=== PATIENT | female | born 1980 | race Caucasian/White ===

== ENCOUNTER → 2016-09-25 | Outpatient (CLI) | payer BC ==
--- NOTE | 2016-09-25 13:34 | XR ---
EXAMINATION TYPE: XR chest 2V DATE OF EXAM: 09/25/2016 1:29 PM COMPARISON: NONE HISTORY: Cough TECHNIQUE: Frontal and lateral views of the chest are obtained. FINDINGS: There is no focal air space opacity, pleural effusion, or pneumothorax seen. The cardiac silhouette size is within normal limits. The osseous structures are intact. IMPRESSION: No acute cardiopulmonary process.
== END | disposition home or self-care (01) ==
LOC: RADXRMAIN 13:12
PROVIDERS: ATTEND Family Medicine
DX: R05 Cough (principal)
CPT/HCPCS: 71020

== ENCOUNTER → 2018-07-04 | Outpatient (CLI) | payer BC ==
--- NOTE | 2018-07-04 09:39 | CT ---
EXAMINATION TYPE: CT chest w con DATE OF EXAM: 07/04/2018 COMPARISON: CT abdomen pelvis July 19, [address] urogram June 26, 2016 HISTORY: Lung nodule found on CT abd pelvis a couple years ago CT DLP: 258.7 mGycm. Automated Exposure Control for Dose Reduction was Utilized. TECHNIQUE: CT scan of the thorax is performed following with IV Contrast, patient injected with 100 mL of Isovue 300. FINDINGS: LUNGS: There is stable 5 x 3 mm subpleural nodule or nodular density left lower lobe axial image 34. Dependent atelectasis is seen in both lower lobes. No suspicious new nodules or masses are present. N o pleural effusion or pneumothorax is seen bilaterally. MEDIASTINUM: There are no greater than 1 cm hilar or mediastinal lymph nodes. Slightly prominent bu t subcentimeter prevascular lymph nodes and right pericarinal lymph node axial image 21 are noted. No cardiomegaly or pericardial effusion is seen. OTHER: No additional significant abnormality is seen. IMPRESSION: Stable 5 x 3 mm peripheral left lower lobe nodule, documentation of 2 years stability is consistent with benign etiology. No new nodules or adenopathy identified.
== END ==
LOC: RADCTMAIN 09:11
PROVIDERS: ATTEND Family Medicine
DX: R91.1 Solitary pulmonary nodule (principal)
CPT/HCPCS: 71260; Q9967

== ENCOUNTER → 2018-10-09 | Outpatient (CLI) | payer BC ==
--- NOTE | 2018-10-15 09:18 | P.ARTDOP ---
Arterial Doppler LOWER EXTREMITY ARTERIAL DOPPLER: DATE OF SERVICE: 10/09/2018 Reason for study: Numbness and tingling both lower legs. Doppler waveforms: Multiphasic bilaterally throughout. Pulse volume recording: []. Pressure gradients: None. Ankle-brachial indices: Greater than 1 bilaterally. Toe pressures: 95 on the right, 96 on the left Impression: Normal study.
== END ==
LOC: RADUSWWP 10:01
PROVIDERS: ATTEND Family Medicine
DX: I70.213 Atherosclerosis of native arteries of extremities with intermittent claudication, bilateral legs (principal)
CPT/HCPCS: 93922

== ENCOUNTER 2019-08-19 20:11 | Emergency (ER) | payer BC ==
[2019-08-19 20:32] VITALS: BP 149/63; PULSE 93; RESP 20; TEMP 97.7
--- NOTE | 2019-08-19 20:40 | ED ---
Upper Extremity HPI - General Chief Complaint: Extremity Injury, Upper Stated Complaint: rt wrist pain Time Seen by Provider: 08/19/19 20:32 Source: patient, family Mode of arrival: ambulatory Limitations: no limitations - History of Present Illness Initial Comments: Patient is a 39-year-old female presenting to emergency Department with complaints of right wrist pain for 1 week. Patient denies any trauma or injuries to her right wrist. She denies previous surgeries. Patient states she went to [facility] a few days ago for same complaint was given a brace. Patient continues to have pain. She says that she leaves for a cruise in a few days and is worried about this pain. She is right-hand dominant. She denies fever, chills. She has no other complaints at this time. Upon arrival to ER, her vital signs are stable. - Related Data Home Medications Medication Instructions Recorded Confirmed HYDROcodone/APAP 7.5-325MG [[place] 1 tab PO Q4H PRN 07/19/16 07/19/16 7.5-325] Lisdexamfetamine Dimesylate 70 mg PO QAM 07/19/16 07/19/16 [Vyvanse] Previous Rx's Medication Instructions Recorded Ciprofloxacin HCl [Cipro] 500 mg PO Q12HR #14 tablet 07/19/16 Allergies Allergy/AdvReac Type Severity Reaction Status Date / Time No Known Allergies Allergy Verified 08/19/19 20:31 Review of Systems ROS Statement: Those systems with pertinent positive or pertinent negative responses have been documented in the HPI. ROS Other: All systems not noted in ROS Statement are negative. Past Medical History Past Medical History: No Reported History History of Any Multi-Drug Resistant Organisms: None Reported Past Surgical History: Hysterectomy, Orthopedic Surgery Additional Past Surgical History / Comment(s): bladder surgery Past Psychological History: No Psychological Hx Reported Smoking Status: Current every day smoker Past Alcohol Use History: Occasional Past Drug Use History: None Reported General Exam - General Exam Comments Initial Comments: GENERAL: Well-appearing, well-nourished and in no acute distress. HEAD: Atraumatic, normocephalic. EYES: Pupils equal round and reactive to light, extraocular movements intact, sclera anicteric, conjunctiva are normal. ENT: Moist mucous membranes. NECK: Normal range of motion, supple without lymphadenopathy or JVD. LUNGS: Breath sounds clear to auscultation bilaterally and equal. No wheezes rales or rhonchi. HEART: Regular rate and rhythm without murmurs, rubs or gallops. ABDOMEN: Soft, nontender, normoactive bowel sounds. EXTREMITIES: The patient has pain with palpation on the lateral aspect of the right wrist, base of thumb area. She has no swelling, no overlying erythema or bruising. She does have full wrist range of motion although painful at the end range. She is neurovascular intact. NEUROLOGICAL: Normal speech, normal gait. PSYCH: Normal mood, normal affect. SKIN: Warm, Dry, normal turgor, no rashes or lesions noted. Limitations: no limitations Course Vital Signs 08/19/19 20:29 Temperature 97.7 F Pulse Rate 93 Respiratory 20 Rate Blood Pressure 149/63 O2 Sat by Pulse 97 Oximetry Medical Decision Making - Medical Decision Making Patient is a 39-year-old female presenting of right wrist pain times one week. No injuries or trauma. X-rays reveal no acute fractures dislocations. I discussed these findings with the patient. Patient will continue to wear brace she got from [facility] 2 days ago. She can use ibuprofen and ice for pain relief. If symptoms persist, patient will follow up with her PCP. She is in agreement with this plan of care. Patient is stable for discharge. Disposition Clinical Impression: Right wrist pain Disposition: HOME SELF-CARE Condition: Stable Instructions (If sedation given, give patient instructions): Wrist Injury (ED) Additional Instructions: Please return to the Emergency Department if symptoms worsen or any other concerns. Follow up with PCP or orthopedic if symptoms persist after 1- 2 weeks. Use ibuprofen and ice for pain relief. Is patient prescribed a controlled substance at d/c from ED?: No Referrals: Sudarshan Melton MD [Primary Care Provider] - 1-2 days
--- NOTE | 2019-08-19 20:56 | XR ---
EXAMINATION TYPE: XR wrist complete RT DATE OF EXAM: 08/19/2019 COMPARISON: NONE HISTORY: Pain and swelling TECHNIQUE: 3 views FINDINGS: Carpal bones are intact. There is small degenerative cyst in the distal scaphoid bone. Ther e are no erosions. There is no subluxation. Metacarpals are intact. Radiocarpal joint space is normal . IMPRESSION: No acute abnormality of the right wrist. No sign of inflammatory arthritis.
== END 2019-08-19 21:10 | disposition home or self-care (01) ==
LOC: EC 20:11
DX: M25.531 Pain in right wrist (principal); F17.200 Nicotine dependence, unspecified, uncomplicated
CPT/HCPCS: 99283

== ENCOUNTER 2023-09-12 22:37 | Emergency (ER) | payer BC ==
[2023-09-13] MEDS: ACETAMINOPHEN TAB 500 MG TAB PO STA (00:25)
[2023-09-13] MEDS: IBUPROFEN 800 MG TAB PO STA (00:26)
--- NOTE | 2023-09-13 01:07 | ED ---
URI HPI - General Chief Complaint: Upper Respiratory Infection Stated Complaint: fever body aches Time Seen by Provider: 09/13/23 00:02 Source: patient Mode of arrival: ambulatory Limitations: no limitations - History of Present Illness Initial Comments: 43-year-old female presenting with chief complaint of headache. Patient states that she woke up today experiencing fever, headache, cough, and congestion. States that the cough makes the pressure in her head worse and also causes some back pain. She has been alternating Motrin and Tylenol. No abdominal pain nausea vomiting or diarrhea. Patient only has chest pain with coughing, otherwise no chest pain. No palpitations. No vision or hearing changes. No numbness or tingling. - Related Data Home Medications Medication Instructions Recorded Confirmed HYDROcodone/APAP 7.5-325MG [[place] 1 tab PO Q4H PRN 07/19/16 07/19/16 7.5-325] Lisdexamfetamine Dimesylate 70 mg PO QAM 07/19/16 07/19/16 [Vyvanse] Previous Rx's Medication Instructions Recorded Ciprofloxacin HCl [Cipro] 500 mg PO Q12HR #14 tablet 07/19/16 Oseltamivir [Tamiflu] 75 mg PO Q12HR 5 Days #9 cap 09/13/23 Allergies Allergy/AdvReac Type Severity Reaction Status Date / Time No Known Allergies Allergy Verified 09/12/23 23:00 Review of Systems ROS Statement: Those systems with pertinent positive or pertinent negative responses have been documented in the HPI. ROS Other: All systems not noted in ROS Statement are negative. Past Medical History Past Medical History: No Reported History History of Any Multi-Drug Resistant Organisms: None Reported Past Surgical History: Hysterectomy, Orthopedic Surgery Additional Past Surgical History / Comment(s): bladder surgery Past Psychological History: No Psychological Hx Reported Smoking Status: Current every day smoker Past Alcohol Use History: Occasional Past Drug Use History: None Reported General Exam Limitations: no limitations General appearance: alert, in no apparent distress Head exam: Present: atraumatic, normocephalic Eye exam: Present: normal appearance Neck exam: Present: normal inspection Respiratory exam: Present: normal lung sounds bilaterally. Absent: respiratory distress, wheezes, rales, rhonchi, stridor Cardiovascular Exam: Present: regular rate, normal rhythm, normal heart sounds. Absent: systolic murmur, diastolic murmur, rubs, gallop, clicks Neurological exam: Present: alert, oriented X3 Psychiatric exam: Present: normal affect, normal mood Skin exam: Present: warm, dry Course Vital Signs 09/12/23 09/13/23 22:59 01:41 Temperature 99.4 F 98.8 F Pulse Rate 107 H 95 Respiratory 20 16 Rate Blood Pressure 122/78 106/69 O2 Sat by Pulse 97 97 Oximetry Medical Decision Making - Medical Decision Making Was pt. sent in by a medical professional or institution ([facility], [facility], urgent care, hospital, or [facility]...) When possible be specific @ -No Did you speak to anyone other than the patient for history (EMS, parent, family, police, friend...)? What history was obtained from this source @ -No Did you review nursing and triage notes (agree or disagree)? Why? @ -I reviewed and agree with nursing and triage notes Were old charts reviewed (outside hosp., previous admission, EMS record, old EKG, old radiological studies, urgent care reports/EKG's, [facility] records)? Report findings @ -No old charts were reviewed Differential Diagnosis (chest pain, altered mental status, abdominal pain women, abdominal pain men, vaginal bleeding, weakness, fever, dyspnea, syncope, headache, dizziness, GI bleed, back pain, seizure, CVA, palpatations, mental health, musculoskeletal)? @ -Differential includes, RSV, COVID, migraine, tension headache, cluster, intracranial hemorrhage, influenza, this is not all inclusive. EKG interpreted by me (3pts min.). @ -As above X-rays interpreted by me (1pt min.). @ -None done CT interpreted by me (1pt min.). @ -None done U/S interpreted by me (1pt. min.). @ -None done What testing was considered but not performed or refused? (CT, X-rays, U/S, labs)? Why? @ -None What meds were considered but not given or refused? Why? @ -None Did you discuss the management of the patient with other professionals (professionals i.e. [facility], MASTER WELDER, lab, RT, psych nurse, social worker health services, fitness manager, teacher, risk officer, piano case and bench assembler)? Give summary @ -No Was smoking cessation discussed for >3mins.? @ -No Was critical care preformed (if so, how long)? @ -No Were there social determinants of health that impacted care today? How? (Homelessness, low income, unemployed, alcoholism, drug addiction, transportation, low edu. Level, literacy, decrease access to med. care, senior care, rehab)? @ -No Was there de-escalation of care discussed even if they declined (Discuss DNR or withdrawal of care, Hospice)? DNR status @ -No What co-morbidities impacted this encounter? (DM, HTN, Smoking, COPD, CAD, Cancer, CVA, ARF, Chemo, Hep., AIDS, mental health diagnosis, sleep apnea, morbid obesity)? @ -None Was patient admitted / discharged? Hospital course, mention meds given and route, prescriptions, significant lab abnormalities, going to OR and other pertinent info. @ -43-year-old female presenting with chief complaint of headache, cough, congestion, body aches. History and physical exam are conducted. Patient is positive for influenza A. Provided Motrin and Tylenol for low-grade fever headache and bodyaches. Educated on today's findings and supportive management at home. Started on Tamiflu. Follow-up with PCP. Report back to ER with any new or worsening symptoms. Discussed return parameters and answered all questions. Patient conveyed verbal understanding and agreed to the plan. I discussed this case in detail with my attending Dr. Torres Undiagnosed new problem with uncertain prognosis? @ -No Drug Therapy requiring intensive monitoring for toxicity (Heparin, Nitro, Insulin, Cardizem)? @ -No Were any procedures done? @ -No Diagnosis/symptom? @ -Influenza A Acute, or Chronic, or Acute on Chronic? @ -Acute Uncomplicated (without systemic symptoms) or Complicated (systemic symptoms)? @ -complicated Side effects of treatment? @ -No Exacerbation, Progression, or Severe Exacerbation? @ -No Poses a threat to life or bodily function? How? (Chest pain, [place], [place], pneumonia, PE, COPD, DKA, ARF, appy, cholecystitis, CVA, Diverticulitis, Homicidal, Suicidal, threat to staff... and all critical care pts) @ -Unlikely - Lab Data Lab Results 09/12/23 Range/Units 23:02 Influenza Type A (PCR) Detected A (Not Detectd) Influenza Type B (PCR) Not Detected (Not Detectd) RSV (PCR) Not Detected (Not Detectd) SARS-CoV-2 (PCR) Not Detected (Not Detectd) Disposition Clinical Impression: Influenza Disposition: HOME SELF-CARE Condition: Good Instructions (If sedation given, give patient instructions): Influenza (ED) Additional Instructions: Follow-up with PCP. Report back to ER with any new or worsening symptoms. Prescriptions: Oseltamivir [Tamiflu] 75 mg PO Q12HR 5 Days #9 cap Is patient prescribed a controlled substance at d/c from ED?: No Referrals: Sudarshan Melton MD [Primary Care Provider] - 1-2 days Time of Disposition: 01:32
[2023-09-13] MEDS: OSELTAMIVIR 75 MG CAP PO STA (01:39)
[2023-09-13 02:15] VITALS: BP 106/69; PULSE 95; RESP 16; TEMP 98.8
== END 2023-09-13 01:44 | disposition home or self-care (01) ==
LOC: EC 22:37
DX: J10.1 Influenza due to other identified influenza virus with other respiratory manifestations (principal); F17.200 Nicotine dependence, unspecified, uncomplicated; Z20.822 Contact with and (suspected) exposure to COVID-19
CPT/HCPCS: 87636; 99284

== ENCOUNTER 2024-04-27 11:07 | Inpatient (IN) | payer BC ==
[2024-04-27] MEDS: MORPHINE SULFATE 4 MG/ML SYRINGE IV STA (12:25)
[2024-04-27] MEDS: KETOROLAC 15 MG/ML 1 ML VIAL IVP STA (12:27)
[2024-04-27] MEDS: DEXAMETHASONE SOD PHOSPHATE 10 MG/ML 1 ML VIAL IV STA (12:28)
--- NOTE | 2024-04-27 12:31 | ED ---
General Adult HPI - General Chief complaint: Back Pain/Injury Stated complaint: Back Pain Time Seen by Provider: 04/27/24 12:04 Source: patient Mode of arrival: EMS Limitations: no limitations - History of Present Illness Initial comments: Dictation was produced using [employer] dictation software. please excuse any grammatical, word or spelling errors. Chief Complaint: 43-year-old female presents emergency department for back pain History of Present Illness: Patient is a 43-year-old female she presents to the emergency department with acute on chronic back pain. Patient states that she has not been able to make it to her chiropractic appointment in the last couple weeks. Feels like her back pain has been worsening. Patient states that she felt a little sore last night did some stretches before bed. She woke up in the middle the night with severe back pain. She has been having radiating symptoms to her left lower extremity. States that she feels some [id number] type sensation. Denies any fever. Denies any nausea vomiting. No history of IV drug abuse or immunosuppression or transplant. Denies any loss of bowel or bladder control. The ROS documented in this emergency department record has been reviewed and confirmed by me. Those systems with pertinent positive or negative responses have been documented in the HPI. All other systems are other negative and/or noncontributory. - Related Data Home Medications Medication Instructions Recorded Confirmed HYDROcodone/APAP 7.5-325MG [[place] 1 tab PO TID 07/19/16 04/27/24 7.5-325] Dextroamphetamine/Amphetamine 20 mg PO BID@0800,1500 04/27/24 04/27/24 [Adderall] Allergies Allergy/AdvReac Type Severity Reaction Status Date / Time No Known Allergies Allergy Verified 04/27/24 16:45 Review of Systems ROS Statement: Those systems with pertinent positive or pertinent negative responses have been documented in the HPI. ROS Other: All systems not noted in ROS Statement are negative. Past Medical History Past Medical History: No Reported History Additional Past Medical History / Comment(s): back pain History of Any Multi-Drug Resistant Organisms: None Reported Past Surgical History: Hysterectomy, Orthopedic Surgery Additional Past Surgical History / Comment(s): bladder surgery Past Psychological History: No Psychological Hx Reported Smoking Status: Current every day smoker Past Alcohol Use History: Occasional Past Drug Use History: None Reported General Exam - General Exam Comments Initial Comments: PHYSICAL EXAM: General Impression: Alert and oriented x3, not in acute distress HEENT: Normocephalic atraumatic, extra-ocular movements intact, pupils equal and reactive to light bilaterally, mucous membranes moist. Cardiovascular: Heart regular rate and rhythm Chest: Able to complete full sentences, no retractions, no tachypnea Abdomen: abdomen soft, non-tender, non-distended, no organomegaly Musculoskeletal: Pulses present and equal in all extremities, no peripheral edema Motor: no focal deficits noted Neurological: CN II-XII grossly intact, no focal motor or sensory deficits no devaughn, no lower extremity hyperreflexia Skin: Intact with no visualized rashes Psych: Normal affect and mood Limitations: no limitations Course Vital Signs 04/27/24 04/27/24 04/27/24 11:11 12:22 13:35 Temperature 97.7 F Pulse Rate 105 H 112 H 106 H Respiratory 16 18 18 Rate Blood Pressure 149/92 126/81 117/73 O2 Sat by Pulse 88 L 96 98 Oximetry 04/27/24 04/27/24 04/27/24 14:31 16:19 17:22 Temperature Pulse Rate 90 86 84 Respiratory 18 18 18 Rate Blood Pressure 118/75 142/88 126/59 O2 Sat by Pulse 97 97 97 Oximetry Medical Decision Making - Medical Decision Making Was pt. sent in by a medical professional or institution ([facility], STERILE TECH, urgent care, hospital, or snf...) When possible be specific @ -No Did you speak to anyone other than the patient for history (EMS, parent, family, police, friend...)? What history was obtained from this source @ -No Did you review nursing and triage notes (agree or disagree)? Why? @ -I reviewed and agree with nursing and triage notes Were old charts reviewed (outside hosp., previous admission, EMS record, old EKG, old radiological studies, urgent care reports/EKG's, snf records)? Report findings @ -No old charts were reviewed Differential Diagnosis (chest pain, altered mental status, abdominal pain women, abdominal pain men, vaginal bleeding, musculoskeletal, weakness, fever, dyspnea, syncope, headache, dizziness, GI bleed, back pain, seizure, CVA, palpatations, mental health)? @ -Differential Back Pain: Strain, zoster, cauda equina syndrome, epidural abscess, vertebral osteomyelitis, discitis, fracture, subluxation, disc herniation, DJD, spinal stenosis, dissection, AAA, pancreatitis, peptic ulcer disease, pyelonephritis, kidney stone, this is not meant to be an all-inclusive list. EKG interpreted by me (3pts min.). @ -None done X-rays interpreted by me (1pt min.). @ -None done CT interpreted by me (1pt min.). @ -CT lumbar spine shows osteoarthritis at the facets U/S interpreted by me (1pt. min.). @ -None done What testing was considered but not performed or refused? (CT, X-rays, U/S, labs)? Why? @ -None What meds were considered but not given or refused? Why? @ -None Was smoking cessation discussed for >3mins.? @ -No Were there social determinants of health that impacted care today? How? (Homelessness, low income, unemployed, alcoholism, drug addiction, transportation, low edu. Level, literacy, decrease access to med. care, fdc, rehab)? @ -No Was there de-escalation of care discussed even if they declined (Discuss DNR or withdrawal of care, Hospice)? DNR status @ -No What co-morbidities impacted this encounter? (DM, HTN, Smoking, COPD, CAD, Cancer, CVA, ARF, Chemo, Hep., AIDS, mental health diagnosis, sleep apnea, morbid obesity)? @ -None Was patient admitted / discharged? Hospital course, mention meds given and route, prescriptions, significant lab abnormalities, going to OR and other pertinent info. @ -43-year-old female with acute on chronic back pain. Patient states that her symptoms are fairly significant. Patient in distress at the bedside. Vital signs stable. Laboratory evaluation is within acceptable limits. CT shows no fractures. Patient does not have any signs of conus compression. Patient reevaluated still in significant pain still. Patient will be admitted. Did you discuss the management of the patient with other professionals (professionals i.e. , PA, STERILE TECH, lab, RT, psych nurse, licensed master social worker, data conversion analyst, teacher, medical officer, employment evaluator/case manager)? Give summary @ -Case discussed with Dr. Melton for admission. Case also discussed with Chirag Shook who request that patient be admitted to medicine with spine surgery on consult Was critical care preformed (if so, how long)? @ -No Undiagnosed new problem with uncertain prognosis? @ -No Drug Therapy requiring intensive monitoring for toxicity (Heparin, Nitro, Insulin, Cardizem)? @ -No Were any procedures done? @ -No Diagnosis/symptom? Acute, or Chronic, or Acute on Chronic? Uncomplicated (without systemic symptoms) or Complicated (systemic symptoms)? @ -Intractable back pain Side effects of treatment? @ -No Exacerbation, Progression, or Severe Exacerbation? @ -No Poses a threat to life or bodily function? How? (Chest pain, [place], [place], pneumonia, PE, COPD, DKA, ARF, appy, cholecystitis, CVA, Diverticulitis, Homicidal, Suicidal, threat to staff... and all critical care pts) @ -yes - Lab Data Result diagrams: 04/27/24 12:25 04/27/24 12:25 Lab Results 04/27/24 04/27/24 Range/Units 12:25 12:25 WBC 9.8 (3.8-10.6) k/uL RBC 4.38 (3.80-5.40) m/uL Hgb 13.6 (11.4-16.0) gm/dL Hct 39.0 (34.0-46.0) % MCV 89.0 (80.0-100.0) fL MCH 31.0 (25.0-35.0) pg MCHC 34.9 (31.0-37.0) g/dL RDW 12.4 (11.5-15.5) % Plt Count 336 (150-450) k/uL MPV 7.9 Neutrophils % 85 % Lymphocytes % 9 % Monocytes % 4 % Eosinophils % 1 % Basophils % 1 % Neutrophils # 8.3 H (1.3-7.7) k/uL Lymphocytes # 0.9 L (1.0-4.8) k/uL Monocytes # 0.4 (0-1.0) k/uL Eosinophils # 0.1 (0-0.7) k/uL Basophils # 0.1 (0-0.2) k/uL Sodium 136 L (137-145) mmol/L Potassium 4.4 (3.5-5.1) mmol/L Chloride 109 H (98-107) mmol/L Carbon Dioxide 20 L (22-30) mmol/L Anion Gap 7 mmol/L BUN 7 (7-17) mg/dL Creatinine 0.59 (0.52-1.04) mg/dL Est GFR (CKD-EPI)AfAm >90 (>60 ml/min/1.73 sqM) Est GFR (CKD-EPI)NonAf >90 (>60 ml/min/1.73 sqM) Glucose 103 H (74-99) mg/dL Calcium 9.3 (8.4-10.2) mg/dL Disposition Clinical Impression: Intractable back pain Disposition: ADMITTED IP TO THIS [facility] Condition: Fair Referrals: Sudarshan Melton MD [Primary Care Provider] - 1-2 days Decision Time: 17:25
[2024-04-27 12:50] LABS: Basophils # (A) 0.1 k/uL (0-0.2); Basophils % (A) 1 %; Eosinophils # (A) 0.1 k/uL (0-0.7); Eosinophils % (A) 1 %; HGB 13.6 gm/dL (11.4-16.0); Lymphocytes # (A) 0.9 k/uL (1.0-4.8); Lymphocytes % (A) 9 %; MCHC 34.9 g/dL (31.0-37.0); Mean Platelet Volume 7.9; Monocytes # (A) 0.4 k/uL (0-1.0); Monocytes % (A) 4 %; Neutrophils # (A) 8.3 k/uL (1.3-7.7); Neutrophils % (A) 85 %; Platelet Count 336 k/uL (150-450); RBC 4.38 m/uL (3.80-5.40); RDW 12.4 % (11.5-15.5); WBC 9.8 k/uL (3.8-10.6)
[2024-04-27 13:04] LABS: African American GFR (CKD) >90 (>60 ml/min/1.73 sqM); Anion Gap 7 mmol/L; Blood Urea Nitrogen 7 mg/dL (7-17); Calcium 9.3 mg/dL (8.4-10.2); Carbon Dioxide 20 mmol/L (22-30); Chloride 109 mmol/L (98-107); Glucose 103 mg/dL (74-99); Non-African American GFR(CKD) >90 (>60 ml/min/1.73 sqM); Potassium 4.4 mmol/L (3.5-5.1); Sodium 136 mmol/L (137-145)
[2024-04-27] MEDS: HYDROmorphone 1 MG/ML 1 ML SYRINGE IVP STA ×2 (13:36→14:36)
--- NOTE | 2024-04-27 15:16 | CT ---
EXAMINATION TYPE: CT lumbar spine wo con DATE OF EXAM: 04/27/2024 1:58 PM COMPARISON: None HISTORY: Atraumatic back pain CT DLP: 1237 mGycm Automated exposure control for dose reduction was used. Unenhanced CT of the lumbar spine was performed. Bone and soft tissue window settings are submitted as well as coronal and sagittal reconstructions. Findings: The lumbar vertebral segments are normal in height and alignment appears no fracture or subluxation. The disc spaces are well preserved and there is no large disc herniation. There is mild facet arthropathy at the L4-5 level. Secondary mild thickening of ligamentum flavum and mild spinal stenosis. There is no bony encroachment of the neuroforamina. The visualized sacrum and SI joints are normal. IMPRESSION: 1. 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 2. lumbar vertebral segments normal in height and alignment. 3. No large disc herniation. 4. No significant degenerative disc disease. [facility], , 04/27/2024 3:14 PM
[2024-04-27] MEDS ORDERED: ONDANSETRON 4 MG/2 ML VIAL IVP PRN (17:21)
[2024-04-27] MEDS ORDERED: NALOXONE 0.4 MG/ML 1 ML VIAL IV PRN (17:21)
[2024-04-27] MEDS: HYDROmorphone 1 MG/ML 1 ML SYRINGE IVP PRN (17:25)
[2024-04-27] MEDS: SODIUM CHLORIDE 0.9% 1,000 ML IV SCH (19:06)
[2024-04-27] MEDS: CYCLOBENZAPRINE 10 MG TAB PO PRN (21:38)
[2024-04-27] MEDS: methylPREDNISolone SOD SUCCI 125 MG/2 ML VIAL IV SCH (21:39)
[2024-04-28] MEDS ORDERED: methylPREDNISolone SOD SUCCI 125 MG/2 ML VIAL IV SCH
--- NOTE | 2024-04-28 04:39 | CT ---
EXAMINATION TYPE: CT hip LT wo con DATE OF EXAM: 04/28/2024 COMPARISON: Prior CT abdomen and pelvis 2016 HISTORY: Left hip pain CT DLP: 617.1 mGycm Automated exposure control for dose reduction was used. FINDINGS: No acute fracture or dislocation in the left hip. Mild axial joint space loss redemonstrated. Femoral head shape maintained bilaterally. [id number] head neck collar spurring is again seen. Hinton c atheter decompressing the bladder is partially imaged. Muscle bulk in the left thigh is maintained. N o free fluid in the pelvis. No groin hernia or adenopathy is seen. IMPRESSION: As above. No acute findings are seen. [facility], , 04/28/2024 4:37 AM
--- NOTE | 2024-04-28 10:53 | P.CNOR ---
History of Present Illness - [facility] Consult date: 04/28/24 History of present illness: Patient is a 43-year-old female who presented to the emergency department yesterday due to increasing low back pain. Patient was seen at bedside this morning in the ER with mother present during encounter. Patient states over the past year she has had ongoing low back pain as well as left-sided low back pain with radiation sometimes down the left lower extremity. Patient says she does see a chiropractor regularly, however, over the past couple weeks she says she has not been able to make chiropractor appointments due to increased pain in the low back. Patient states the pain has been increasing over the past several days and her low back to the point where she has difficulty ambulating. Patient says she gets sharp pains extending into the left buttocks and on the left leg. Patient says she does have numbness and tingling mostly in the left calf. Patient says she does place pillows under her left leg/buttocks to take some pressure off the left side of her back patient denies any loss of bowel/bladder control or nausea/vomiting. Patient says she has taking Tylenol and ibuprofen without much relief. Patient also says she has been given Cedarcreek 7.5 mg with minimal relief. Patient states she normally ambulates independently but ambulation has been difficult over the past several days due to worsening low back pain and radiation of the pain down the left leg. Past Medical History Past Medical History: No Reported History Additional Past Medical History / Comment(s): back pain History of Any Multi-Drug Resistant Organisms: None Reported Past Surgical History: Hysterectomy, Orthopedic Surgery Additional Past Surgical History / Comment(s): bladder surgery Past Psychological History: No Psychological Hx Reported Smoking Status: Current every day smoker Past Alcohol Use History: Occasional Past Drug Use History: None Reported Medications and Allergies Home Medications Medication Instructions Recorded Confirmed Type HYDROcodone/APAP 7.5-325MG [Cedarcreek 1 tab PO TID 07/19/16 04/27/24 History 7.5-325] Dextroamphetamine/Amphetamine 20 mg PO BID@0800,1500 04/27/24 04/27/24 History [Adderall] Allergies Allergy/AdvReac Type Severity Reaction Status Date / Time No Known Allergies Allergy Verified 04/27/24 16:45 Physical Examination Inspection: Patient lying in the right lateral recumbent position. Negative for any open fractures, significant erythema/ecchymosis/open wounds. Sensation: Somewhat altered/diminished in the left calf. Equal, symmetric, by intact throughout the rest of the upper and lower extremities on exam. Palpation: Significant tenderness to patient over the lower lumbar spine at midline and over the left SI joint. Nontender to palpation throughout rest of exam. Range of motion: Patient has full range of motion throughout bilateral upper extremities and right lower extremity on exam. Patient does have limited range of motion in left hip flexion/extension on exam secondary to referred pain/stiffness to the low back. Patient does have limited range of motion in dorsi/plantarflexion of the left ankle as well as EHL/FHL. Patient is able to flex left knee to about 135 degrees and lacks about 3 degrees full extension Motor: 3+/5 in EHL/FHL on the left lower extremity. 4-/5 in left ankle and dorsi/plantarflexion. 4-/5 in resisted left hip flexion to extension. 4/5 in resisted left knee flexion-extension. 4+/5 in all other major motor groups. Neurovascular: Radial pulse intact, 2+ bilaterally. Cap refill under 3 seconds in digits of upper and lower extremities. DP pulses palpable bilaterally. Special test: Negative Homans bilaterally. Negative clonus bilaterally. Negative Shashank bilaterally. Positive straight leg raise test on the left lower extremity Results - Labs Labs: Abnormal Lab Results - Last 24 Hours (Table) 04/27/24 04/27/24 Range/Units 12:25 12:25 Neutrophils # 8.3 H (1.3-7.7) k/uL Lymphocytes # 0.9 L (1.0-4.8) k/uL Sodium 136 L (137-145) mmol/L Chloride 109 H (98-107) mmol/L Carbon Dioxide 20 L (22-30) mmol/L Glucose 103 H (74-99) mg/dL H & H 04/27/24 Range/Units 12:25 Hgb 13.6 (11.4-16.0) gm/dL Hct 39.0 (34.0-46.0) % Result Diagrams: 04/27/24 12:25 04/27/24 12:25 - Diagnostic results CT Scan - lumbar: report reviewed, image reviewed (CT scan lumbar spine has been reviewed. Negative for any fractures or spondylolisthesis. Positive for some mild L4-5 facet arthropathy and stenosis.) Assessment and Plan Assessment: 1. Left lower extremity radiculopathy; left lower extremity weakness; low back pain Plan: 1. Left lower extremity radiculopathy; left lower extremity weakness; low back pain - CT scan lumbar spine has been reviewed. Negative for any fractures or spondylolisthesis. Positive for some mild L4-5 facet arthropathy and stenosis. I did review the findings of the imaging and exam with my attending, Dr. Silverman. At this time we are recommending MRI of the lumbar spine for further evaluation. We are recommending patient to be treated with IV steroids for symptom control as well as pain medication/muscle relaxers. PT/OT recommendations. Patient may weight-bear as tolerated with walker and assistance as needed. We will await MRI results before proceeding with any potential orthopedic intervention. Continue conservative measures at this time. We will continue to follow patient during stay in hospital. 2. Appreciate medical management 3. Pain management - flexeril 4. DVT prophylaxis recs 5. GI prophylaxis recs 6. PT/OT -weightbearing as tolerated with walker as needed and assistance as needed 7. Encourage incentive spirometer use 8. Appreciate consult Time with Patient: Less than 30
[2024-04-28] MEDS: LORazepam 2 MG/ML INJ IV ONE (12:09)
--- NOTE | 2024-04-28 13:07 | MR ---
EXAMINATION TYPE: MR lumbar spine wo con DATE OF EXAM: 04/28/2024 COMPARISON: None HISTORY: Back Pain CONTRAST: 0 mL intravenous Gadavist. TECHNIQUE: Multiplanar, multisequence images of the lumbar spine were acquired. FINDINGS: Cord terminates at the L1 level. L5-S1: There is a small subligamentous disc herniation centrally at L5-S1. This is mild anterior thec al sac contact without AP spinal canal stenosis. Mild facet hypertrophy is present. There is left for aminal stenosis. Right foramen is patent. L4-L5: No significant disc bulge or disc herniation. No spinal canal stenosis. No foraminal stenosi s. Facet hypertrophy is present with ligamentum flavum laxity. Some mild posterior lateral thecal sac compression is present. No stenosis is present. Neural foramen are patent L3-L4: No significant disc bulge or disc herniation. No spinal canal stenosis. No foraminal stenosi s. L2-L3: No significant disc bulge or disc herniation. No spinal canal stenosis. No foraminal stenosi s. L1-L2: No significant disc bulge or disc herniation. No spinal canal stenosis. No foraminal stenosi s. T12-L1: No significant disc bulge or disc herniation. No spinal canal stenosis. No foraminal stenos is. IMPRESSION: 1. Central subligamentous disc herniation L5-S1 without spinal canal stenosis. 2. Left foraminal stenosis L5-S1. [facility], , 04/28/2024 1:05 PM
[2024-04-28] MEDS: DEXAMETHASONE SOD PHOSPHATE 4 MG/ML 1 ML VIAL IVP SCH (13:25)
[2024-04-28] MEDS: GABAPENTIN 300 MG CAP PO SCH (20:46)
--- NOTE | 2024-04-28 21:31 | XR ---
EXAMINATION TYPE: XR lumbar spine with bend/flex DATE OF EXAM: 04/28/2024 COMPARISON: None HISTORY: Pain TECHNIQUE: 5V lumbar spine with flexion and extension views. FINDINGS: There are 5 lumbar-type vertebral bodies. Pedicles are intact. Mild facet changes are prese nt. Disc heights appear preserved. Vertebral body heights are preserved. No spondylolytic defects are evident. Vertebral body alignment is preserved through flexion and extension views. IMPRESSION: 1. No suspicious acute osseous abnormality. 2. Orientation of the vertebral bodies is preserved through flexion and extension and neutral positio ns. [facility], , 04/28/2024 9:29 PM
--- NOTE | 2024-04-29 12:17 | P.PN ---
Subjective Progress Note Date: 04/29/24 Principal diagnosis: Left lower extremity radiculopathy; left lower extremity weakness; low back pain; L5-S1 left-sided neuroforaminal stenosis; L5-S1 disc herniation Patient and family member were seen at bedside this morning. Patient after discussing with family members would like to move forward with orthopedic surgical intervention in the form of L5-S1 left-sided microdiscectomy. Patient says she is still having pain anytime she moves her left lower extremity. She s ays pain is somewhat alleviated when she lies on her right side taking the pressure off the left buttock/leg. Patient denies any other issues at this time. Objective - Vital Signs Vital signs: Vital Signs Temp 98.3 F 04/29/24 08:00 Pulse 65 04/29/24 08:00 Resp 14 04/29/24 08:00 BP 119/72 04/29/24 08:00 Pulse Ox 96 04/29/24 08:00 FiO2 Intake & Output 04/28/24 04/29/24 04/29/24 18:59 06:59 18:59 Intake Total 1720 Output Total 150 800 Balance -150 920 Weight 83.915 kg Intake: Intake, IV Titration 220 Amount Sodium Chloride 0.9% 1, 220 000 ml @ 20 mls/hr IV . [facility] Rx#:[id number] Oral 1500 Output: Urine 150 800 Uretheral (Hinton) 150 Other: Voiding Method Indwelling Catheter Indwelling Catheter Indwelling Catheter - Exam Inspection: Patient lying in the right lateral recumbent position. Negative for any open fractures, significant erythema/ecchymosis/open wounds. Sensation: Somewhat altered/diminished in the left calf. Equal, symmetric, by intact throughout the rest of the upper and lower extremities on exam. Palpation: Significant tenderness to patient over the lower lumbar spine at midline and over the left SI joint. Nontender to palpation throughout rest of exam. Range of motion: Patient has full range of motion throughout bilateral upper extremities and right lower extremity on exam. Patient does have limited range of motion in left hip flexion/extension on exam secondary to referred pain/stiffness to the low back. Patient does have limited range of motion in dorsi/plantarflexion of the left ankle as well as EHL/FHL. Patient is able to flex left knee to about 135 degrees and lacks about 3 degrees full extension Motor: 3+/5 in EHL/FHL on the left lower extremity. 4-/5 in left ankle and dorsi/plantarflexion. 4-/5 in resisted left hip flexion to extension. 4/5 in resisted left knee flexion-extension. 4+/5 in all other major motor groups. Neurovascular: Radial pulse intact, 2+ bilaterally. Cap refill under 3 seconds in digits of upper and lower extremities. DP pulses palpable bilaterally. Special test: Negative Homans bilaterally. Negative clonus bilaterally. Negative Shashank bilaterally. Positive straight leg raise test on the left lower extremity - Labs CBC & Chem 7: 04/27/24 12:25 04/27/24 12:25 Assessment and Plan Assessment: 1. Left lower extremity radiculopathy; left lower extremity weakness; low back pain; L5-S1 left-sided neuroforaminal stenosis; L5-S1 disc herniation Plan: 1. Left lower extremity radiculopathy; left lower extremity weakness; low back pain - CT scan lumbar spine has been reviewed. Negative for any fractures or spondylolisthesis. Positive for some mild L4-5 facet arthropathy and stenosis. MRI of the lumbar spine does reveal disc herniation at L5-S1 on the left side. Present with neuroforaminal stenosis at L5-S1 on the left side. Negative for any significant spinal canal stenosis. I did review the findings of the imaging and exam with my attending, Dr. Silverman. At this time we are recommending orthopedic surgical intervention in the form of L5-S1 left-sided microdiscectomy. I did discuss the potential interventions with patient and family member at bedside. At this time patient and family member have decided to move forward with surgical intervention. Surgery has been scheduled for tomorrow, , 04/30/2024L5-S1 left-sided microdiscectomy. We are recommending patient to be treated with IV steroids for symptom control as well as pain medication/muscle relaxers. PT/OT recommendations. Patient may weight- bear as tolerated with walker and assistance as needed. Patient to be n.p.o. at midnight beginning tonight. We will continue to follow patient during stay in hospital. 2. Appreciate medical management 3. Pain management - flexeril 4. DVT prophylaxis -with hold blood thinners at this time. 5. GI prophylaxis recs 6. PT/OT -weightbearing as tolerated with walker as needed and assistance as needed 7. Encourage incentive spirometer use Time with Patient: Less than 30
[2024-04-30] MEDS: diazePAM 5 MG TAB PO SCH (07:47)
[2024-04-30] MEDS: IV FLUID CONTINUATION 1,000 ML IV ONE (13:37)
--- NOTE | 2024-04-30 14:26 | P.PN ---
Progress Note - Text Progress Note Date: 04/30/24 Spine Surgery Clinical and Risk Review TERESE READ is a 43 yo female presenting for the CC of low back pain. LLE pain tensioning and nerve pain that travels down her leg into her foot. This has been going on for about 3 months now and just got worse. She went to the chiropractor begining of the week and since then she has been unable to ambulate due to the pain in her leg. She states pain, weakness and difficulty with using the restroom due to pain and her back. She has never hurt her back before or had back surgery before. She denies any bowel issues. No perineal numbness/tingling at this time. XR and MRI reviewed as well as CT shows L5-S1 left paracentral HNP with moderate to severe central and left foraminal stenosis. There is spondylosis at this level with disc height loss as well. There are boggy facets at L4-5 suggesting possible instability, howevere patient is too painful to get F/E films at this time. We discussed the possibility of further issues later on given this finding and she understands. On Exam she has + SLR on the left with CSLR on the right. She has +tensioning signs. She has weakness in PF on the left and dermatomal deficits with paresthesias in the S1 distribution on the left. She is starting now to have RLE sx which she did not have before. She has no perineal decrease in sensation. DTR are all 2/4. NO kee, babinski or clonus noted. We have discussed at length treatment options for her as well as her clinical signs and sx and we have gone through her imaging together. We have discussed natural course without intervention as well as possible outcomes. We have discussed risks and benefits at length. She is ready and willing to have surgery for this as she states she is miserable. She is willing to proceed as below. Currently, I am recommendin. LEFT MINIMALLY INVASIVE LAMINOFORAMINOTOMY L5-S1 WITH MICRODISCECTOMY 2. Obtain appropriate presurgical workup and clearances as discussed with the patient. 3. Review of surgical risks and benefits as well as an educational packet on the proposed surgical procedure. Risks: All surgical procedures come with inherent risks, including those related to positioning, anesthesia, intraoperative findings, and postoperative complications. It is important to understand that surgery does not come with any guarantee of a successful outcome as complications and adverse events are always possible. The patient was given a handout in the office today discussing the surgical procedure and risks associated with the intervention, both of which were discussed with the patient. These risks include but are not limited to the following: Experiencing same, different or even worse symptoms in back, neck, arms, or legs compared to before surgery. Requiring further surgery or other forms of treatment presently or at some time in the future at same or other levels of the intended spine surgery. On an extreme but fortunately relatively rare basis severe complications such as blindness, stroke, heart attack, temporary and/or permanent nerve inju ry, paralysis, coma, or may occur, sometimes without known explanation. Surgical complications may include but are not limited to risk of infection, fluid accumulation in the surgical dissection site, including a seroma or hematoma, that requires additional surgery, wound drainage, bleeding, new numbness or weakness, vision changes/loss, spinal fluid leakage, non-healing and/or infected incision, headaches, difficulty or inability to swallow, hoarseness, hemopneumothorax, pneumothorax, impotence, retrograde ejaculation, vaginal dryness; injury to nerves, spinal cord, blood vessels, lymphatics or other vital organs (i.e., bowel injury, injury to the great vessels); heterotopic bone formation; complications related to the hardware such as screws, rods, cages including misplaced hardware, device failure, instrumentation at the wrong spine level, hardware fracture/breakage, or hardware loosening; vertebral failure of the spinal column above or below the newly placed hardware; retained surgical instrumentations or devices and the need for further surgery. Medical risks of the planned spine surgery include but are not limited to generalized Infections to the whole body or local areas outside of the surgical site (sepsis), heart attack, bleeding, anaphylaxis, meningitis, seizure, epilepsy, hearing loss, burn waterman, laceration of the head or other areas of the body, bruising, hypersensitivity of the skin, bladder over distension; allergic reaction; shoulder injury related to positioning; fat, blood and air clots to other areas of the body like heart, lungs, brain; failure of internal organs such as lungs, kidneys, liver and excessive bleeding. If blood transfusions are necessary, note that transfusions may cause intolerance reactions such as anaphylaxis or other complex reactions. Despite best efforts, the results of spine surgery might not heal in terms of bone, soft tissues such as skin, fascia, ligaments, and joints. Additionally, in order to achieve best possible results, spine surgery may be carried out beyond the initially planned levels and involve decompression, fusion including insertion of hardware at levels other than the original intended area of surgical interest change some portions of the procedure in order to ensure the best possible outcomes. With spine surgery and spinal fusion, there are different off label uses of instrumentation (devices, implants and hardware) as well as biological substances (bone morphogenic proteins, demineralized bone matrix) as well as using extra bone from allograft sources (i.e. cadaver bone) or autograft (iliac crest bone, ribs, or the spine itself). The patient has been given information about these practices and their inherent risks and benefits. The patient has had a chance to review all the listed information, has been given print outs detailing this information, and has had all his/her questions answered to their satisfaction. It was my pleasure to have seen and examined [Patient Name]. In our visit today we have had a chance to go over my understanding of our patient's current condition, the natural course history without intervention and various interventional options. Questions were invited and answered, and the patient wishes to proceed as outlined above. I have seen and examined the patient for 25 minutes and we have spent more than 50% of the time in repeat and detailed cou nseling about the patient's condition, its natural course history without and as much as can be predicted with surgery and re-review of various surgical treatment options. In conclusion, [Patient Name] and [his/her spouse/partner] requested we proceed with the above suggested surgery and are willing to accept risks and limitations of the suggested surgery as nature of the disease process and our best attempts at treatment for the condition. Thank you again for allowing us to be part of your patient's care. Please don't hesitate to contact me if you have any further questions. Signed and authenticated by: Natanael Melgar [facility] [address], [address] [address]
--- NOTE | 2024-04-30 14:48 | HP ---
HISTORY AND PHYSICAL HISTORY OF PRESENT ILLNESS: The patient came to hospital with severe pain in her left hip and her lumbar spine. She has woke up with unable to move. She has never had this before. Sharp pain in left buttocks and some numbness and tingling in the left calf. She never felt like this before. She has a history of some degenerative disk disease and never had pain like this. HOME MEDICATIONS: Include Sc[place]ey, Adderall. ALLERGIES: Negative. REVIEW OF SYSTEMS: A 14 point review of systems otherwise negative. LABORATORY DATA: Reviewed. Hemoglobin and hematocrit are normal. Sodium 136, CO2 is 20. Straight leg raising test positive on the left leg. Tenderness to palpation on the left hip and lumbar spine on the left side. Most likely she has lumbar neuritis, possibly some hip bursitis of severe nature. We are going to order an MRI, but she could not tolerate MRI due to lying flat. We will continue with PT, OT. Weight loading as tolerated. Wait for Orthopedic and Neurosurgery consults. Wait for another MRI of her lumbar spine, IV steroids, pain control, muscle relaxers. MMODL / IJN: [id number] /
--- NOTE | 2024-04-30 14:49 | PN ---
PROGRESS NOTE DATE OF SERVICE: 04/28/2024 SUBJECTIVE: A 43-year-old white female, seen on 04/28/2024, re-dictating the followup. Her pain is still severe. She cannot move her legs. She is scheduled for possible surgery on . Pending MRI review with the radiologist per Dr. Silverman. Otherwise, she is very fairly stable. Pain is being controlled. She has radiating pain down her left extremities. OBJECTIVE: CARDIOVASCULAR: S1 and S2. LUNGS: Clear. GI: Soft. HEMATOLOGY: Negative Homans. VITAL SIGNS: Blood pressure 120s over 70s, heart rate is low 100s, respiratory rate 16 to 18, afebrile. LABS: Reviewed. Expect neurosurgical intervention next day or 2. Pending further testing. She is unable to move her legs, possibly epidural versus surgery. Please see further orders. MMODL / IJN: [id number] /
--- NOTE | 2024-04-30 14:49 | PN ---
PROGRESS NOTE The patient remains on gabapentin for neuropathy pain, Dilaudid for severe pain, Decadron IV, Flexeril for muscle relaxers, Zofran for nausea. MRI of the lumbar spine was reviewed, Orthopedic consultation was reviewed. She has a urinary catheter for urinary retention. Dr. Silverman's consult is pending. Possibly get an epidural shot. We will see if we can get that ordered possibly with pain controlled anesthesia consult. Continue to wait for neurologic recommendations MMODL / IJN: [id number] /
--- NOTE | 2024-04-30 14:49 | HP ---
HISTORY AND PHYSICAL HISTORY OF PRESENT ILLNESS: 43-year-old white female came in with retractable back pain and unable to move her left leg, was examined in the emergency room. For last couple weeks she felt a little sore, this was in fact before bed, she woke up with severe back pain and unable to move her legs. She has never had this before. IV drug use, immunocompromised status. She is an ex-smoker for many years. HOME MEDICATIONS: 1. Phelps 7.5 t.i.d. 2. Adderall 20 b.i.d. ALLERGIES: NEGATIVE. PAST MEDICAL HISTORY: Orthopedic surgery, hysterectomy. PHYSICAL EXAMINATION: VITAL SIGNS: Temperature 97.7, pulse 105-112, blood pressure 117-149/73-92, respiratory rate 16-18, O2 saturation was 88-98. CARDIOVASCULAR: S1-S2. PSYCH: Anxious, nervous. NEUROLOGIC: Alert, oriented x3. MUSCULOSKELETAL: Her left leg she is able to lift it 2-3 inches off the ground. Otherwise, she cannot move it. Tenderness to palpation over the lumbosacral spinal muscles on the left as well as the hip bursa. Hyperreflexia to extremities. There is also acute lumbar disk herniation. Continue current treatments. Wait for further workup per Neurology and further care. Depending on surgery versus epidural, muscle relaxer, steroids, etc., given. MMODL / IJN: [id number] /
[2024-04-30] MEDS ORDERED: TRANEXAMIC 1,000 MG/100ML-NACL PREMIX BAG ONE (14:51)
[2024-04-30] MEDS ORDERED: MIDAZOLAM 2 MG/2 ML VIAL ONE (14:51)
[2024-04-30] MEDS ORDERED: ROCURONIUM 10 MG/ML (5 ML VIAL) IV ONE (14:51)
[2024-04-30] MEDS ORDERED: NEOSTIGMINE 1 MG/ML 10 ML VIAL ONE (14:51)
[2024-04-30] MEDS ORDERED: SUCCINYLCHOLINE CHLORIDE 200 MG/10 ML VIAL IV ONE (14:51)
[2024-04-30] MEDS ORDERED: KETAMINE HCL IN 0.9 % NACL 50 MG/5 ML SYRINGE ONE (14:51)
[2024-04-30] MEDS ORDERED: fentaNYL (PF) 50 MCG/ML 2 ML AMP ONE (14:51)
[2024-04-30] MEDS ORDERED: PROPOFOL 10 MG/ML 20 ML VIAL IV ONE (14:51)
[2024-04-30] MEDS ORDERED: LIDOCAINE 1% INJ 10MG/ML (20 ML MDV) ONE (14:51)
[2024-04-30] MEDS ORDERED: GLYCOPYRROLATE 0.2 MG/ML 2 ML VIAL ONE (14:51)
--- NOTE | 2024-04-30 14:51 | PN ---
PROGRESS NOTE SUBJECTIVE: 43-year-old white female who continues to have pain every time she moves her left lower extremity. She chose to get epidural shot versus surgery. Waiting for evaluations. OBJECTIVE: VITAL SIGNS: Temp 98.3, pulse 65, respiratory rate 12 to 16, blood pressure is 119/72, O2 96. CARDIOVASCULAR: S1, S2. LUNGS: Transmitted upper sounds. HEMATOLOGY: Negative Homans. NEUROLOGIC: Alert and oriented x3. PSYCH: Fair mood and affect. MUSCULOSKELETAL: She has maybe 1 to 2/6 strength in her lower legs. ASSESSMENT: 1. 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 2. History of ADD. 3. Nicotine addiction. 4. Asthma. 5. Chronic obstructive pulmonary disease. PLAN: Wait for surgery versus epidural shots. Continue PT, OT, pain control. MMODL / IJN: [id number] /
[2024-04-30] MEDS: SODIUM CHLORIDE 0.9% 100 ML with ceFAZolin 2,000 MG IV ONE (14:56)
[2024-04-30] MEDS: THROMBIN (BOVINE) 5,000 UNIT VIAL TOPICAL ONE (15:25)
[2024-04-30] MEDS: LIDOCAINE 2%-EPI 1:100,000 20 ML VIAL SQ ONE ×2 (15:25)
[2024-04-30] MEDS: BUPIVACAINE (PF) 0.5% 30 ML VIAL SQ ONE ×2 (15:26)
[2024-04-30] MEDS: methylPREDNISolone ACETATE 40 MG/ML 1 ML VIAL MISCELLANE ONE (15:56)
[2024-04-30] MEDS: LACTATED RINGERS 1,000 ML IV ONE (16:10)
[2024-04-30] MEDS ORDERED: HYDROcodone/APAP 7.5-325MG 1 EACH TAB PO PRN (16:22)
--- NOTE | 2024-04-30 16:41 | P.OP ---
Date of Procedure: 04/30/24 Preoperative Diagnosis: Current Active Problems Lumbar stenosis (Acute) HNP (herniated nucleus pulposus), lumbar (Acute) Lumbar back pain with radiculopathy affecting left lower extremity (Acute) Intractable back pain (Acute) Postoperative Diagnosis: Current Active Problems Lumbar stenosis (Acute) HNP (herniated nucleus pulposus), lumbar (Acute) Lumbar back pain with radiculopathy affecting left lower extremity (Acute) Intractable back pain (Acute) Procedure(s) Performed: 1. L5-S1 LEFT LAMINOFORAMINOTOMY WITH MICRODISCECOMY (18994) MIS USE OF IO MICROSCOPE Implants: NONE Anesthesia: LETIA Surgeon: Natanael Silverman Clinical Engineering Director #1: Gregory Shook (WAS PRESENT AND ASSISTED WITH ALL ASPECTS OF THE CASE FROM POSITION TO DRESSING PLACEMENT) Estimated Blood Loss (ml): 20 IV fluids (ml): 1,000 Urine output (ml): 450 Pathology: none sent Condition: stable Disposition: PACU Indications for Procedure: Spine Surgery Clinical and Risk Review TERESE READ is a 43 yo female presenting for the CC of low back pain. LLE pain tensioning and nerve pain that travels down her leg into her foot. This has been going on for about 3 months now and just got worse. She went to the chiropractor begining of the week and since then she has been unable to ambulate due to the pain in her leg. She states pain, weakness and difficulty with using the restroom due to pain and her back. She has never hurt her back before or had back surgery before. She denies any bowel issues. No perineal numbness/tingling at this time. XR and MRI reviewed as well as CT shows L5-S1 left paracentral HNP with moderate to severe central and left foraminal stenosis. There is spondylosis at this level with disc height loss as well. There are boggy facets at L4-5 suggesting possible instability, howevere patient is too painful to get F/E films at this time. We discussed the possibility of further issues later on given this finding and she understands. On Exam she has + SLR on the left with CSLR on the right. She has +tensioning signs. She has weakness in PF on the left and dermatomal deficits with paresthesias in the S1 distribution on the left. She is starting now to have RLE sx which she did not have before. She has no perineal decrease in sensation. DTR are all 2/4. NO kee, babinski or clonus noted. We have discussed at length treatment options for her as well as her clinical signs and sx and we have gone through her imaging together. We have discussed natural course without intervention as well as possible outcomes. We have discussed risks and benefits at length. She is ready and willing to have surgery for this as she states she is miserable. She is willing to proceed as below. Currently, I am recommendin. LEFT MINIMALLY INVASIVE LAMINOFORAMINOTOMY L5-S1 WITH MICRODISCECTOMY Description of Procedure: L5-S1 LEFT MIS LAMINOFORAMINOTOMY WITH MICRODISCECTOMY The patient was seen and examined in the preoperative area. All preoperative protocols were followed. Informed consent was obtained, risks and benefits of the procedure were discussed at length. Risks including bleeding infection damage to the surrounding tissue and risk of reoperation were discussed with the patient. Risk of anesthesia up to and including was discussed with the patient. These are outlined in the risk review. They were willing to accept these risks and all the risks of surgery. The patient was given a weight-based dose of antibiotics in the form of 2 g Ancef. The patient was seen and evaluated by the anesthesia team who deemed them fit for surgery. The site was marked, the patient was willing to proceed with the procedure. The patient was transferred to the operative suite by the Department of anesthesia. They were then drifted off to sleep by the department anesthesia and GETA was performed. The patient tolerated this well. Hinton catheter was placed by nursing staff, a-traumatically. Once confirmation of lines and ventilation the patient was transferred to a prone Joaquim table very carefully. All bony prominences including wrists, elbows, axilla, chest, hips, and thighs, and feet were padded very well. Special attention was paid to the genitalia, and these were padded accordingly. SCDs were placed on bilateral lower extremities and were connected. Arms were well padded and placed on arm boards up and out in the 90/90 position. Once in position, again we confirmed good ventilation capabilities and that lines were running appropriately. The patients Lumbar spine was then exposed. 1010s were placed outlining the incision site. Standard alcohol was used to clean the incision site and allowed to dry. C-arm was used to needle localize the pedicles at L5-S1 and bio-jessica the patient and confirm level for incision which was marked with a skin marker. Operative briefing was performed with all teams and everyone in agreement to proceed. The patient was then prepped and draped in a normal sterile fashion. Timeout was then performed, and all parties agreed with the procedure to be performed. Skin incision was made over the previously marked area and initial dilator was position at the L5-S1 disc space using biplanar fluoroscopy. Once in position sequential dilation was taken up to 26 motor tube which was then placed and secured to the table with the bad arm. Limited myomectomy was performed to identify the L5 lamina pars and L5-S1 joint. Large osteophyte was noted at L4 5 region. Microscope was then brought in for visualization. Ankit-laminotomy, p artial medial facetectomy and foraminotomy were performed at L5-S1 using high speed angelita and Kerrison rongure. The ligamentum flavum was removed with Kerrison and curette. Dura and roots protected. The disc space was identified along with the herniation. 11 blade was used to make small annulotomy and micro-pituitary used to remove loose disc fragments. Once fragments were removed, down biting curette was used to push any medial fragments down and towards the annulotomy and decompress centrally. The disc space was irrigated, and any loose fragments removed again. Bipolar was used for hemostasis and scarring of the annulotomy. The area was irrigated, and meticulous hemostasis performed. The bed was inspected, and all roots have ample room and are decompressed along with the dura. There were no injuries. Retractors were then removed. The wound was copiously irrigated with NSS. The deep fascia was closed with 0 PDS. Deep sub-q with 0 Vicryl and superficial with 2-0 Vicryl. s kin henna were placed. The wound edges approximated well. The wound was then cleaned, and glue tape placed on the skin and allowed to dry. It was then Covered with an Opifoam dressing. The patient was then transferred off the table back to their hospital bed a- traumatically. They were extubated by the department of anesthesia. They were then transferred to PACU in stable condition having tolerated the procedure with no complications.
[2024-04-30] MEDS: HYDROmorphone 0.5 MG/0.5 ML SYRINGE IVP PRN (17:04)
[2024-04-30] MEDS: LACTATED RINGERS 1,000 ML IV SCH (17:48)
[2024-04-30] MEDS: ONDANSETRON 4 MG/2 ML VIAL IVP ONE (18:04)
[2024-04-30] MEDS: DEXAMETHASONE SOD PHOSPHATE 4 MG/ML 1 ML VIAL IV ONE (18:04)
[2024-05-01] MEDS: HYDROcodone/APAP 10-325MG 1 EACH TAB PO PRN (01:32)
[2024-05-01 09:12] VITALS: BP 117/75; PULSE 64; RESP 16; TEMP 98.2
--- NOTE | 2024-05-01 11:08 | P.PN ---
Subjective Progress Note Date: 05/01/24 Principal diagnosis: Left lower extremity radiculopathy; left lower extremity weakness; low back pain; L5-S1 left-sided neuroforaminal stenosis; L5-S1 disc herniation Patient was seen at bedside this morning lying in the right lateral recumbent position with Hinton/catheter in place. Patient says she did get up 1 time overnight and used a walker. She says she is looking forward to working with therapy later this morning. Depending on how she does with therapy she is open to going home today. Patient says she is still having a burning type pain/tightness in the left buttocks/hamstring region. Patient denies any other issues at this time. Objective - Vital Signs Vital signs: Vital Signs Temp 98.2 F 05/01/24 07:39 Pulse 64 05/01/24 07:39 Resp 16 05/01/24 07:39 BP 117/75 05/01/24 07:39 Pulse Ox 95 05/01/24 07:39 FiO2 Intake & Output 04/30/24 05/01/24 05/01/24 18:59 06:59 18:59 Intake Total 1200 Output Total 1820 2400 350 Balance -620 -2400 -350 Intake: IV 1200 Output: Urine 1800 2400 350 Estimated Blood Loss 20 Other: Voiding Method Indwelling Catheter Indwelling Catheter - Exam Inspection: Patient lying in the right lateral recumbent position. Negative for any open fractures, significant erythema/ecchymosis/open wounds. Incision clean, dry, intact on the lumbar spine. Dressing in place. Negative for any active drainage. Sensation: Somewhat altered/diminished in the left calf. Equal, symmetric, by intact throughout the rest of the upper and lower extremities on exam. Palpation: Moderate tenderness to patient over the lower lumbar spine at midline and over the left SI joint. Nontender to palpation throughout rest of exam. Range of motion: Patient has full range of motion throughout bilateral upper extremities and right lower extremity on exam. Patient does have limited range of motion in left hip flexion/extension on exam secondary to referred pain /stiffness to the low back. Patient does have limited range of motion in dorsi/plantarflexion of the left ankle as well as EHL/FHL. Patient is able to flex left knee to about 135 degrees and lacks about 3 degrees full extension Motor: 3+/5 in EHL/FHL on the left lower extremity. 4-/5 in left ankle and dorsi/plantarflexion. 4-/5 in resisted left hip flexion to extension. 4/5 in resisted left knee flexion-extension. 4+/5 in all other major motor groups. Neurovascular: Radial pulse intact, 2+ bilaterally. Cap refill under 3 seconds in digits of upper and lower extremities. DP pulses palpable bilaterally. Special test: Negative Homans bilaterally. Negative clonus bilaterally. Negative Shashank bilaterally. Positive straight leg raise test on the left lower extremity - Labs CBC & Chem 7: 04/27/24 12:25 04/27/24 12:25 Assessment and Plan Assessment: 1. Left lower extremity radiculopathy; left lower extremity weakness; low back pain; L5-S1 left-sided neuroforaminal stenosis; L5-S1 disc herniation -Postop day 1 status post L5-S1 LEFT LAMINOFORAMINOTOMY WITH MICRODISCECOMY MIS Plan: 1. Left lower extremity radiculopathy; left lower extremity weakness; low back pain -patient stable bedside this morning postop day 1 status post L5-S1 left- sided microdiscectomy. discontinue Hinton/catheter. Patient may weight-bear as tolerated with walker. Appreciate PT/OT recommendations. Prescription for walker signed. Pain medication as needed. Patient is stable from orthopedic standpoint for discharge. We will continue to be availalable as needed during stay in hospital. discharge per medicine. Follow-up in the office in [address] Silverman. 2. Appreciate medical management 3. Pain management - flexeril; Pollock; gabapentin 4. DVT prophylaxis recs 5. GI prophylaxis -senna 6. PT/OT -weightbearing as tolerated with walker as needed and assistance as needed 7. Encourage incentive spirometer use Time with Patient: Less than 30
[2024-05-01] MEDS: IPRATROPIUM-ALBUTEROL 3 ML NEB INHALATION SCH (16:17)
[2024-05-02] MEDS ORDERED: SENNOSIDES 8.6 MG TAB PO SCH (09:00)
--- NOTE | 2024-05-05 18:22 | XR ---
EXAMINATION TYPE: XR lumbar spine 2 or 3V, FL guidance operating room DATE OF EXAM: 04/30/2024 4:33 PM COMPARISON: Pre Operative Images if available both CT/MRI or plain film CLINICAL INDICATION: Female, 43 years old with history of INTRACTABLE BACK PAIN; TECHNIQUE: XR lumbar spine 2 or 3V, FL guidance operating room, multiple fluoroscopic images provided for procedure. Total fluoroscopy time: 15 seconds Total submitted images to PACS: 4 DAP: 3.98 mGym2 Gycm2 uGym2 cGycm2 or equivalent. FINDINGS: Fluoroscopic images during procedure demonstrate metallic object pointing at the vertebral body near the L5-S1 disc space. No immediate complication identified. Multilevel degeneration changes throughou t the spine with facet joint arthropathy and mild osteophyte formation. IMPRESSION: 1. No evidence for intraoperative complication. 2. Please see the operative/procedural note for further details. [facility], , 05/05/2024 6:19 PM
== END 2024-05-01 17:11 | disposition home or self-care (01) | DRG 519 ==
LOC: EC 11:07 → 4SSUR 17:21 → INTOOBSV 17:21 → 4SSUR 21:05 → 1SOBS 04-28 10:16 → OBSVTOIN 04-30 12:25 → 4SSUR 04-30 13:30
PROVIDERS: ADMIT Family Medicine; ATTEND Family Medicine
PROC: 0ST40ZZ Resection of Lumbosacral Disc, Open Approach (ICD-10-PCS; principal; 2024-04-30 07:30)
DX: M51.16 Intervertebral disc disorders with radiculopathy, lumbar region (principal); D84.9 Immunodeficiency, unspecified; F17.200 Nicotine dependence, unspecified, uncomplicated; G62.9 Polyneuropathy, unspecified; G89.29 Other chronic pain; J44.89 Other specified chronic obstructive pulmonary disease; M47.817 Spondylosis without myelopathy or radiculopathy, lumbosacral region; M48.061 Spinal stenosis, lumbar region without neurogenic claudication; M51.17 Intervertebral disc disorders with radiculopathy, lumbosacral region; Z79.899 Other long term (current) drug therapy
CPT/HCPCS: 36415; 72100; 72114; 72131; 72148; 80048; 85025; 85379; 96374; 96375; 96376; 99285

== ENCOUNTER 2024-05-30 19:40 | Emergency (ER) | payer BC ==
[2024-05-30] MEDS: GABAPENTIN 300 MG CAP PO STA (20:56)
[2024-05-30] MEDS: HYDROmorphone 1 MG/ML 1 ML SYRINGE IM STA (20:56)
--- NOTE | 2024-05-30 21:20 | ED ---
Recheck HPI - General Chief Complaint: Recheck/Abnormal Lab/Rx Stated Complaint: post op comp, lumbar Time Seen by Provider: 05/30/24 19:57 Source: patient, RN notes reviewed Mode of arrival: ambulatory Limitations: no limitations - History of Present Illness Initial Comments: This is a 44-year-old female presenting left foot nerve pain x 4 days. Patient endorses receiving left partial laminectomy almost 1 month ago due to low back pain patient states she is recently run out of gabapentin with subsequent left foot and calf pain. Patient states that the top of her left foot feels "on fire" in the bottom and calf feels "pokey". Patient states she called the surgeon's office late yesterday, on Saturday but was unable to receive a gabapentin refill for the office close. Patient endorses use of oxycodone with minimal relief. Patient states she is not taking the hydrocodone or cyclobenzaprine was previously prescribed for her current symptoms. Patient denies fever, chills, dyspnea, chest pain, left foot edema, erythema, low back pain/tenderness. MD Complaint: medication refill request Onset/Timin -: days(s) Context: ran out of medication Treatments Prior to Arrival: other medications (Oxycodone) - Related Data Home Medications Medication Instructions Recorded Confirmed HYDROcodone/APAP 7.5-325MG [[place] 1 tab PO TID 07/19/16 04/27/24 7.5-325] Dextroamphetamine/Amphetamine 20 mg PO BID@0800,1500 04/27/24 04/27/24 [Adderall] Previous Rx's Medication Instructions Recorded Cyclobenzaprine [Flexeril] 10 mg PO BID PRN #30 tab 05/01/24 Gabapentin [Neurontin] 300 mg PO BID 30 Days #90 cap 05/01/24 HYDROcodone/APAP 7.5-325MG [[place] 1 each PO Q6HR PRN #28 tab 05/01/24 7.5] Sennosides/Docusate Sodium 2 each PO DAILY PRN #30 tablet 05/01/24 [Senna-S 8.6-50 mg Tablet] cefaDROXiL [Duricef] 500 mg PO Q12HR 5 Days #10 cap 05/01/24 diazePAM [Valium] 10 mg PO BID tab 05/01/24 Gabapentin 300 mg PO QID 14 Days #56 cap 10/26/24 Allergies Allergy/AdvReac Type Severity Reaction Status Date / Time No Known Allergies Allergy Verified 05/30/24 20:08 Review of Systems ROS Statement: Those systems with pertinent positive or pertinent negative responses have been documented in the HPI. ROS Other: All systems not noted in ROS Statement are negative. Past Medical History Past Medical History: No Reported History Additional Past Medical History / Comment(s): back pain History of Any Multi-Drug Resistant Organisms: None Reported Past Surgical History: Hysterectomy, Orthopedic Surgery Additional Past Surgical History / Comment(s): bladder surgery Past Anesthesia/Blood Transfusion Reactions: No Reported Reaction Past Psychological History: No Psychological Hx Reported Smoking Status: Current every day smoker Past Alcohol Use History: Occasional Past Drug Use History: None Reported General Exam Limitations: no limitations General appearance: alert, in no apparent distress Head exam: Present: atraumatic, normocephalic, normal inspection Eye exam: Present: normal appearance, PERRL, EOMI. Absent: scleral icterus, conjunctival injection, periorbital swelling ENT exam: Present: normal exam, mucous membranes moist Neck exam: Present: normal inspection. Absent: tenderness, meningismus, lymphadenopathy Respiratory exam: Present: normal lung sounds bilaterally. Absent: respiratory distress, wheezes, rales, rhonchi, stridor Cardiovascular Exam: Present: regular rate, normal rhythm, normal heart sounds. Absent: systolic murmur, diastolic murmur, rubs, gallop, clicks GI/Abdominal exam: Present: soft, normal bowel sounds. Absent: distended, tenderness, guarding, rebound, rigid Extremities exam: Present: normal inspection, full ROM, tenderness, normal capillary refill, other (Left dorsalis pedis and posterior tibialis pulse +2. Neurovascular intact dorsiflexion and plantarflexion strength 5 out of 5. Negative Homans' sign). Absent: pedal edema, joint swelling, calf tenderness Back exam: Present: normal inspection Neurological exam: Present: alert, oriented X3, CN II-XII intact Psychiatric exam: Present: normal affect, normal mood Skin exam: Present: warm, dry, intact, normal color. Absent: rash Course Vital Signs 05/30/24 20:02 Temperature 97.7 F Pulse Rate 64 Respiratory 20 Rate Blood Pressure 117/78 O2 Sat by Pulse 95 Oximetry Medical Decision Making - Medical Decision Making Was pt. sent in by a medical professional or institution ([facility], IP COUNSEL, urgent care, hospital, or shelter...) When possible be specific @ -No Did you speak to anyone other than the patient for history (EMS, parent, family, police, friend...)? What history was obtained from this source @ -No Did you review nursing and triage notes (agree or disagree)? Why? @ -I reviewed and agree with nursing and triage notes Were old charts reviewed (outside hosp., previous admission, EMS record, old EKG, old radiological studies, urgent care reports/EKG's, shelter records)? Report findings @ -Patient's lower back surgical report regarding her partial laminectomy from April 2024 reviewed. Differential Diagnosis (chest pain, altered mental status, abdominal pain women, abdominal pain men, vaginal bleeding, weakness, fever, dyspnea, syncope, headache, dizziness, GI bleed, back pain, seizure, CVA, palpatations, mental health, musculoskeletal)? @ -Postsurgical neuralgia, DVT, foot fracture, sciatica, compression syndrome, diabetic neuropathy EKG interpreted by me (3pts min.). @ -Not done X-rays interpreted by me (1pt min.). @ -None done CT interpreted by me (1pt min.). @ -None done U/S interpreted by me (1pt. min.). @ -None done What testing was considered but not performed or refused? (CT, X-rays, U/S, labs)? Why? @ -None What meds were considered but not given or refused? Why? @ -None Did you discuss the management of the patient with other professionals (professionals i.e. [facility], IP COUNSEL, lab, RT, psych nurse, addiction social worker, graduating machine operator, teacher, interface control officer, rn case management)? Give summary @ -No Was smoking cessation discussed for >3mins.? @ -No Was critical care preformed (if so, how long)? @ -No Were there social determinants of health that impacted care today? How? (Homelessness, low income, unemployed, alcoholism, drug addiction, transportation, low edu. Level, literacy, decrease access to med. care, mcc, rehab)? @ -No Was there de-escalation of care discussed even if they declined (Discuss DNR or withdrawal of care, Hospice)? DNR status @ -No What co-morbidities impacted this encounter? (DM, HTN, Smoking, COPD, CAD, Can cer, CVA, ARF, Chemo, Hep., AIDS, mental health diagnosis, sleep apnea, morbid obesity)? @ -None Was patient admitted / discharged? Hospital course, mention meds given and route, prescriptions, significant lab abnormalities, going to OR and other pertinent info. @ -Discharge. Patient provided 300 mg gabapentin p.o. and 1 mg Dilaudid IM. Additional 2 weeks of gabapentin 300 mg 4 times daily sent to pharmacy. Advised follow-up with surgeon within the next week. Undiagnosed new problem with uncertain prognosis? @ -No Drug Therapy requiring intensive monitoring for toxicity (Heparin, Nitro, Ins ulin, Cardizem)? @ -No Were any procedures done? @ -No Diagnosis/symptom? @ -Acute neuralgia following surgery Acute, or Chronic, or Acute on Chronic? @ -Acute Uncomplicated (without systemic symptoms) or Complicated (systemic symptoms)? @ -Uncomplicated Side effects of treatment? @ -No Exacerbation, Progression, or Severe Exacerbation? @ -Severe exacerbation Poses a threat to life or bodily function? How? (Chest pain, USA, SC, pneumonia, PE, COPD, DKA, ARF, appy, cholecystitis, CVA, Diverticulitis, Homicidal, Suicidal, threat to staff... and all critical care pts) @ -No Disposition Clinical Impression: Neuralgia, Encounter for medication refill Disposition: HOME SELF-CARE Condition: Good Instructions (If sedation given, give patient instructions): Lumbar Radiculopathy (ED) Prescriptions: Gabapentin 300 mg PO QID 14 Days #56 cap Is patient prescribed a controlled substance at d/c from ED?: No Referrals: Sudarshan Melton MD [Primary Care Provider] - 1-2 days Time of Disposition: 21:20
[2024-05-30 21:33] VITALS: BP 114/78; PULSE 70; RESP 16; TEMP 98.7
== END 2024-05-30 21:37 | disposition home or self-care (01) ==
LOC: EC 19:40
CPT/HCPCS: 96372; 99283

== ENCOUNTER → 2024-06-03 | Outpatient (CLI) | payer BC ==
--- NOTE | 2024-06-03 15:53 | MR ---
EXAMINATION TYPE: MR lumbar spine wo/w con DATE OF EXAM: 06/03/2024 COMPARISON: 04/28/2024 HISTORY: post laminectomy 4 weeks ago, nerve pain down whole left leg, burning pain CONTRAST: 8.5 mL intravenous Gadobutrol. TECHNIQUE: Multiplanar, multisequence images of the lumbar spine were acquired. FINDINGS: Cord ends at the L1 level. L5-S1: No focal disc herniation or significant disc bulge. No spinal canal stenosis. There is severe left foraminal stenosis, present previously. There appears to be a left hemilaminectomy with new granulation tissue through the left paraspinal re gion extending to the neural foramen. There may be some displacement of the left S1 exiting nerve cherry t. Granulation tissue is enhancing normally. Correlate for left S1 radicular symptoms. L4-L5: No focal disc herniation or significant disc bulge. No spinal canal stenosis. Facet hypertrop hy is present. There may be some increasing left neural foraminal narrowing, a change from comparison . This is identified on the sagittal plane images, possibly postsurgical granulation tissue related. L3-L4: No focal disc herniation or significant disc bulge. No spinal canal stenosis. Neural foramen are patent. L2-L3: No focal disc herniation or significant disc bulge. No spinal canal stenosis. Neural foramen are patent. L1-L2: No focal disc herniation or significant disc bulge. No spinal canal stenosis. Neural foramen are patent. T12-L1: No focal disc herniation or significant disc bulge. No spinal canal stenosis. Neural forame n are patent. No suspicious enhancement. No suspicious abscess formation or hematoma identified. Follow-up be perfo rmed as clinically indicated. IMPRESSION: 1. Granulation type tissue appears to be at the left foramen at L5-S1 displacing the left S1 nerve ro ot. Correlate with the radicular symptoms. 2. Postsurgical changes left hemilaminectomy L5-S1. 3. There appears to be some moderate foraminal narrowing, increased from prior examination, at the L4 -5 level [facility], Workstation: [facility], 06/03/2024 3:51 PM
== END | disposition home or self-care (01) ==
LOC: RADMRIMAIN 14:13
PROVIDERS: ATTEND Orthopaedic Surgery
CPT/HCPCS: 72158

== ENCOUNTER 2024-06-10 17:21 | Observation (INO) | payer BC ==
[2024-06-10] MEDS: SODIUM CHLORIDE 0.9% 1,000 ML IV STA (18:39)
[2024-06-10] MEDS: HYDROmorphone 1 MG/ML 1 ML SYRINGE IVP STA (18:45)
[2024-06-10] MEDS ORDERED: ACETAMINOPHEN TAB 500 MG TAB PO PRN (20:13)
[2024-06-10] MEDS ORDERED: ONDANSETRON 4 MG/2 ML VIAL IVP PRN (20:19)
[2024-06-10] MEDS ORDERED: NALOXONE 0.4 MG/ML 1 ML VIAL IV PRN (20:31)
--- NOTE | 2024-06-10 20:33 | ED ---
General Adult HPI - General Chief complaint: Back Pain/Injury Stated complaint: post op comp, back pain Time Seen by Provider: 06/10/24 18:32 Source: patient, family, RN notes reviewed, old records reviewed Mode of arrival: wheelchair Limitations: no limitations - History of Present Illness Initial comments: Patient is a 44-year-old female who presents emergency department complaining of back pain. It is chronic. Had surgery [address] Silverman and has been having back pain since. Has been worse since Augmentin in the office today. MRI done last week shows scar tissue which is likely contributing to her nerve pain. She describes the pain as shooting sensations down to her toes on the left side as well as over the left side of her body, abdomen, hip. Dr. Silverman this morning stated that if the pain gets worse she should present to the ER for evaluation and possibly admission. She denies any new acute complaints. Denies any saddle paresthesias. Denies urinary or bowel incontinence or retention. Denies lower extremity paralysis. Presents for further evaluation at this time. - Related Data Home Medications Medication Instructions Recorded Confirmed HYDROcodone/APAP 7.5-325MG [[place] 1 tab PO TID 07/19/04/27/24 7.5-325] Dextroamphetamine/Amphetamine 20 mg PO BID@0800,1500 04/27/24 04/27/24 [Adderall] Previous Rx's Medication Instructions Recorded Cyclobenzaprine [Flexeril] 10 mg PO BID PRN #30 tab 05/01/24 Gabapentin [Neurontin] 300 mg PO BID 30 Days #90 cap 05/01/24 HYDROcodone/APAP 7.5-325MG [[place] 1 each PO Q6HR PRN #28 tab 05/01/24 7.5] Sennosides/Docusate Sodium 2 each PO DAILY PRN #30 tablet 05/01/24 [Senna-S 8.6-50 mg Tablet] cefaDROXiL [Duricef] 500 mg PO Q12HR 5 Days #10 cap 05/01/24 diazePAM [Valium] 10 mg PO BID tab 05/01/24 Gabapentin 300 mg PO QID 14 Days #56 cap 05/30/24 Allergies Allergy/AdvReac Type Severity Reaction Status Date / Time No Known Allergies Allergy Verified 06/10/24 17:46 Review of Systems ROS Statement: Those systems with pertinent positive or pertinent negative responses have been documented in the HPI. Review of Systems: CONST: Denies fever EYES: Denies blurry vision ENT: Denies nasal congestion C/V: Denies Chest pain RESP: Denies shortness of breath GI: Denies abdominal pain : Denies dysuria SKIN: Denies rash. MSK: Endorses back pain NEURO: Denies headache ROS Other: All systems not noted in ROS Statement are negative. Past Medical History Past Medical History: No Reported History Additional Past Medical History / Comment(s): back pain History of Any Multi-Drug Resistant Organisms: None Reported Past Surgical History: Back Surgery, Hysterectomy, Orthopedic Surgery Additional Past Surgical History / Comment(s): bladder surgery Past Anesthesia/Blood Transfusion Reactions: No Reported Reaction Past Psychological History: No Psychological Hx Reported Smoking Status: Current every day smoker Past Alcohol Use History: Occasional Past Drug Use History: None Reported General Exam - General Exam Comments Initial Comments: General: Appears in mild to moderate distress secondary to pain. HEAD: Normal with no signs of head trauma. EYES: PERRLA, EOMI, conjunctiva normal, no discharge. ENT: Hearing grossly intact, normal oropharynx. RESPIRATORY: Clear breath sounds bilaterally. No wheezes, rales, or rhonchi. C/V: Regular rate and rhythm. S1 and S2 auscultated, no edema, peripheral pulses 2+ and intact throughout ABD: Abd is soft, nontender, nondistended EXT: Normal range of motion, no obvious deformity. Tenderness to palpation over the lumbar spine, lower left lumbar paraspinal muscles. Surgical incision appears within acceptable limits. SKIN: No rashes or lesions observed on exposed skin. NEURO: Alert and oriented x 4. Limitations: no limitations Course Vital Signs 06/10/24 17:46 Temperature 98.2 F Pulse Rate 85 Respiratory 18 Rate Blood Pressure 119/75 O2 Sat by Pulse 96 Oximetry Medical Decision Making - Medical Decision Making Was pt. sent in by a medical professional or institution ([facility], APPEALS MANAGER, urgent care, hospital, or [facility]...) When possible be specific @ -No Did you speak to anyone other than the patient for history (EMS, parent, family, police, friend...)? What history was obtained from this source @ -No Did you review nursing and triage notes (agree or disagree)? Why? @ -I reviewed and agree with nursing and triage notes Were old charts reviewed (outside hosp., previous admission, EMS record, old EKG, old radiological studies, urgent care reports/EKG's, [facility] records)? Report findings @ -No old charts were reviewed Differential Diagnosis (chest pain, altered mental status, abdominal pain women, abdominal pain men, vaginal bleeding, weakness, fever, dyspnea, syncope, headache, dizziness, GI bleed, back pain, seizure, CVA, palpatations, mental health, musculoskeletal)? @ -Chronic pain, postop pain, lumbar spine pain, cauda equina syndrome. This list is not all inclusive. EKG interpreted by me (3pts min.). @ -As above X-rays interpreted by me (1pt min.). @ -None done CT interpreted by me (1pt min.). @ -Lumbar spine CT reveals no evidence findings consistent with MRI findings consisting of the granulation/scar tissue. No other obvious acute process at this time. U/S interpreted by me (1pt. min.). @ -None done What testing was considered but not performed or refused? (CT, X-rays, U/S, labs)? Why? @ -None What meds were considered but not given or refused? Why? @ -None Did you discuss the management of the patient with other professionals (professionals i.e. , PA, APPEALS MANAGER, lab, RT, psych nurse, social work coordinator, consultant electronics, teacher, chief nursing officer, field case manager)? Give summary @ -Discussed with admitting provider, Dr. Silverman her surgeon who requested patient be admitted onto his service. Patient can eat as surgery would likely not be done for [address] lumbar spine. Requested medicine consult. Consult placed to Dr. Melton. Was smoking cessation discussed for >3mins.? @ -No Was critical care preformed (if so, how long)? @ -No Were there social determinants of health that impacted care today? How? (Homelessness, low income, unemployed, alcoholism, drug addiction, transportation, low edu. Level, literacy, decrease access to med. care, intermediate, rehab)? @ -No Was there de-escalation of care discussed even if they declined (Discuss DNR or withdrawal of care, Hospice)? DNR status @ -No What co-morbidities impacted this encounter? (DM, HTN, Smoking, COPD, CAD, Cancer, CVA, ARF, Chemo, Hep., AIDS, mental health diagnosis, sleep apnea, morbid obesity)? @ -Prior lumbar spine surgery Was patient admitted / discharged? Hospital course, mention meds given and route, prescriptions, significant lab abnormalities, going to OR and other pertinent info. @ -Based on patient's presentation and physical exam, presents with intractable back pain. Has known pain from scar tissue buildup along the nerves following surgery 6 weeks ago seen on MRI last week. I reached out to Dr. Silverman who requested admission onto his service and medicine consult as well as CT imaging. Patient will be treated with IV fluids as well as pain medications. She will be admitted. She was in agreement this plan. No concern for cauda equina syndrome at this time. Laboratory studies obtained and were relatively unremarkable. EKG showed no signs of acute ischemia. Patient admitted in stable condition. She was in agreement this plan. Undiagnosed new problem with uncertain prognosis? @ -No Drug Therapy requiring intensive monitoring for toxicity (Heparin, Nitro, Insulin, Cardizem)? @ -No Were any procedures done? @ -No Diagnosis/symptom? @ -Postop pain, back pain Acute, or Chronic, or Acute on Chronic? @ -Acute Uncomplicated (without systemic symptoms) or Complicated (systemic symptoms)? @ -Complicated Side effects of treatment? @ -No Exacerbation, Progression, or Severe Exacerbation? @ -No Poses a threat to life or bodily function? How? (Chest pain, USA, SC, pneumonia, PE, COPD, DKA, ARF, appy, cholecystitis, CVA, Diverticulitis, Homicidal, Suicidal, threat to staff... and all critical care pts) @ -Yes - Lab Data Result diagrams: 06/10/24 20:39 06/10/24 20:39 - EKG Data -: EKG Interpreted by Me EKG Comments: 12-lead Electrocardiogram Interpretation Note EKG was reviewed and interpreted by myself. 12-lead ECG performed at 2117 is interpreted by me as revealing normal sinus rhythm at a rate of 68 beats per minute. Dillon is normal. SC interval is 155 ms, QRS duration is 85 ms, QTc is 418 ms.. There were no ST or T wave abnormalities to suggest myocardial ischemia or injury. R wave progression across the precordium was satisfactory. By my interpretation this EKG is non-diagnostic for acute ischemia. Disposition Clinical Impression: Post-op pain Disposition: ADMITTED IP TO THIS HOSP Condition: Stable Time of Disposition: 20:15
[2024-06-10 20:46] LABS: Basophils % (A) 0 %; Eosinophils # (A) 0.1 k/uL (0-0.7); Eosinophils % (A) 1 %; HCT 39.3 % (34.0-46.0); HGB 12.8 gm/dL (11.4-16.0); Lymphocytes # (A) 2.8 k/uL (1.0-4.8); Lymphocytes % (A) 24 %; MCH 30.4 pg (25.0-35.0); MCHC 32.7 g/dL (31.0-37.0); MCV 92.9 fL (80.0-100.0); Mean Platelet Volume 6.8; Monocytes # (A) 0.7 k/uL (0-1.0); Monocytes % (A) 6 %; Neutrophils # (A) 8.1 k/uL (1.3-7.7); Neutrophils % (A) 69 %; Platelet Count 346 k/uL (150-450); RBC 4.23 m/uL (3.80-5.40); RDW 12.2 % (11.5-15.5); WBC 11.8 k/uL (3.8-10.6)
[2024-06-10] MEDS: ACETAMINOPHEN IV (For NPO) 1,000 MG in EMPTY BAG 1 BAG IVPB SCH (20:53)
[2024-06-10 20:54] LABS: INR 1.2 (<1.2); Partial Thromboplastin Time 26.2 sec (22.0-30.0); Prothrombin Time 12.6 sec (10.0-12.5)
[2024-06-10] MEDS: diazePAM 5 MG TAB PO SCH (20:55)
[2024-06-10 21:24] LABS: ALT 17 U/L (4-34); AST 21 U/L (14-36); African American GFR (CKD) >90 (>60 ml/min/1.73 sqM); Albumin 3.5 g/dL (3.5-5.0); Alkaline Phosphatase 70 U/L (38-126); Anion Gap 4 mmol/L; Blood Urea Nitrogen 13 mg/dL (7-17); Calcium 8.2 mg/dL (8.4-10.2); Carbon Dioxide 23 mmol/L (22-30); Chloride 109 mmol/L (98-107); Glucose 111 mg/dL (74-99); Non-African American GFR(CKD) >90 (>60 ml/min/1.73 sqM); Potassium 3.8 mmol/L (3.5-5.1); Sodium 136 mmol/L (137-145); Total Bilirubin 0.4 mg/dL (0.2-1.3); Total Protein 5.8 g/dL (6.3-8.2)
[2024-06-10] MEDS: HYDROmorphone 2 MG/ML 1 ML SYRINGE IVP PRN (21:42)
[2024-06-10] MEDS: GABAPENTIN 300 MG CAP PO SCH (21:43)
--- NOTE | 2024-06-10 22:11 | CT ---
EXAMINATION TYPE: CT lumbar spine wo con DATE OF EXAM: 06/10/2024 8:49 PM COMPARISON: MRI 06/03/2024. CLINICAL INDICATION: Female, 44 years old with history of pain; PHH, post op pain TECHNIQUE: Multiple axial images were obtained from the midportion of T11 through the sacroiliac joseline nts. Soft tissue and bone windows in coronal and sagittal planes were obtained and reviewed. Contrast used: mL of , (None, if empty). Oral contrast used: (None, if empty). CT DLP: 1074 mGycm, Automated exposure control for dose reduction was used. FINDINGS: Alignment: There are 5 lumbar type vertebral bodies with grade 1 anterolisthesis of L4 and L5. Bone: Multilevel degeneration changes are mild with osteophyte formation and facet arthropathy. Ques tionable postsurgical changes to the posterior elements of the L5 vertebral body on the left. Series 206 image 38. Discs: T12-L1: No spinal canal or neural foraminal stenosis is identified. L1-L2: No spinal canal or neural foraminal stenosis is identified. L2-L3: No spinal canal or neural foraminal stenosis is identified. L3-L4: No spinal canal or neural foraminal stenosis is identified. L4-L5: No spinal canal or neural foraminal stenosis is identified. L5-S1: Postsurgical changes. The spinal canal is open. Thee left exiting nerve is poorly visualized t here is ill-defined soft tissue around the neural foramen possibly secondary to disc extrusion and or granulation tissue. This is involving the foraminal and extra foraminal regions. Other: Atherosclerosis of the arterial vasculature. Images normal. IMPRESSION: 1. Ill-defined soft tissue surrounding the exiting left nerve root at L5-S1 as seen on MRI findings may represent granulation tissue versus extruded disc material. 2. Postsurgical change to the left posterior elements of L5 no organizing fluid collection identifie d on CT imaging. 3. No evidence of spinal fracture . 4. No evidence for significant spinal canal or neural foraminal stenosis. 5. Grade 1 anterolisthesis of L4 and L5. [facility], Workstation: [id number], 06/10/2024 10:09 PM
[2024-06-11] MEDS: DEXAMETHASONE SOD PHOSPHATE 4 MG/ML 1 ML VIAL IV SCH (01:29)
[2024-06-11 05:48] LABS: INR 1.1 (<1.2)
[2024-06-11] MEDS: polyethylene glycoL 3350 17 GM POWD.PACK PO SCH (07:56)
[2024-06-11] MEDS: HYDROcodone/APAP 10-325MG 1 EACH TAB PO PRN (08:52)
[2024-06-11] MEDS: SODIUM CHLORIDE 0.9% 1,000 ML IV SCH (08:56)
--- NOTE | 2024-06-11 10:21 | P.HPOR ---
History of Present Illness H&P Date: 06/11/24 Chief Complaint: Left lower extremity radiculopathy Patient was seen at bedside this morning in the emergency department lying in the right lateral recumbent position. Patient was admitted to the hospital yesterday after returning to the ED later that night with increasing pain and discomfort. She was seen in Dr. Silverman office in the AM in the outpatient setting due to worsening numbness and tingling in the left lower extremity. Patient did have recent surgery performed by Dr. Silverman and on 04/30/2024 for left-sided L5-S1 Laminoforaminotomy with microdiscectomy. Patient states there was improvement for about the first week and a half after her last surgery but then symptoms gradually began to come back mostly with intense numbness and tingling down the left lower extremity going from the left buttocks all the way into the left foot. Patient states it feels like there is hot coals over the top of her foot and then shooting pains down the bottom of her foot. Patient denies any loss of bowel/bladder control or saddle anesthesia. Patient denies any orthopedic complaints at this time. Past Medical History Past Medical History: No Reported History Additional Past Medical History / Comment(s): back pain History of Any Multi-Drug Resistant Organisms: None Reported Past Surgical History: Back Surgery, Hysterectomy, Orthopedic Surgery Additional Past Surgical History / Comment(s): bladder surgery Past Anesthesia/Blood Transfusion Reactions: No Reported Reaction Past Psychological History: No Psychological Hx Reported Smoking Status: Current every day smoker Past Alcohol Use History: Occasional Past Drug Use History: None Reported Medications and Allergies Home Medications Medication Instructions Recorded Confirmed Type Gabapentin 600 mg PO TID 06/11/24 06/11/24 History Gabapentin 800 mg PO DIRECTED 06/11/24 06/11/24 History HYDROcodone/APAP 10-325MG [[place] 1 tab PO Q6H PRN 06/11/24 06/11/24 History 10-325] predniSONE [Deltasone] 20 mg PO BID 06/11/24 06/11/24 History Allergies Allergy/AdvReac Type Severity Reaction Status Date / Time No Known Allergies Allergy Verified 06/11/24 07:25 Physical Examination Osteopathic Statement: *. No significant issues noted on an osteopathic structural exam other than those noted in the History and Physical/Consult. Inspection: Patient lying in the right lateral recumbent position. Negative for any open fractures, significant erythema/ecchymosis/open wounds. Sensation: Somewhat altered/diminished in the left calf. Equal, symmetric, by intact throughout the rest of the upper and lower extremities on exam. Palpation: Significant tenderness to patient over the lower lumbar spine at midline and over the left SI joint. Nontender to palpation throughout rest of exam. Range of motion: Patient has full range of motion throughout bilateral upper extremities and right lower extremity on exam. Patient does have limited range of motion in left hip flexion/extension on exam secondary to referred pain/stiffness to the low back. Patient does have limited range of motion in dorsi/plantarflexion of the left ankle as well as EHL/FHL. Patient is able to flex left knee to about 135 degrees and lacks about 3 degrees full extension Motor: 3+/5 in EHL/FHL on the left lower extremity. 4-/5 in left ankle and dorsi/plantarflexion. 4-/5 in resisted left hip flexion to extension. 4/5 in resisted left knee flexion-extension. 4+/5 in all other major motor groups. Neurovascular: Radial pulse intact, 2+ bilaterally. Cap refill under 3 seconds in digits of upper and lower extremities. DP pulses palpable bilaterally. Special test: Negative Homans bilaterally. Negative clonus bilaterally. Negative Shashank bilaterally. Positive straight leg raise test on the left lower extremity Results - Labs Labs: Abnormal Lab Results - Last 24 Hours (Table) 06/10/24 06/10/24 06/10/24 Range/Units 20:39 20:39 20:39 WBC 11.8 H (3.8-10.6) k/uL Neutrophils # 8.1 H (1.3-7.7) k/uL PT 12.6 H (10.0-12.5) sec INR 1.2 H (<1.2) Sodium 136 L (137-145) mmol/L Chloride 109 H (98-107) mmol/L Glucose 111 H (74-99) mg/dL Calcium 8.2 L (8.4-10.2) mg/dL Total Protein 5.8 L (6.3-8.2) g/dL H & H 06/10/24 Range/Units 20:39 Hgb 12.8 (11.4-16.0) gm/dL Hct 39.3 (34.0-46.0) % Coagulation 06/10/24 06/11/24 Range/Units 20:39 05:34 INR 1.2 H 1.1 (<1.2) Result Diagrams: 06/10/24 20:39 06/10/24 20:39 Assessment and Plan Assessment: History of Lumbar stenosis; herniated nucleus pulposus, lumbar; Lumbar back pain with radiculopathy affecting left lower extremity; Intractable back pain; history of recent L5-S1 left laminoforaminotomy with microdiscectomy Plan: 1. History of Lumbar stenosis; herniated nucleus pulposus, lumbar; Lumbar back pain with radiculopathy affecting left lower extremity; Intractable back pain; history of recent L5-S1 left laminoforaminotomy with microdiscectomy -patient presented to Dr. Lopez in office yesterday with worsening left lower extremity pain. Patient was directed admission to the hospital. Surgery has been scheduled for tomorrow, 06/12/2024L5-S1 Laminoforaminotomy with microdiscecomty re-exploration, LEFT. Patient be n.p.o. at midnight tonight. Withhold blood thinners at this time. Pain medication as needed. Patient may weight-bear as tolerated with walker and assistance. We will continue to follow patient during stay in hospital. 2. Appreciate medical management 3. Pain management -[place]; Flexeril; gabapentin 4. DVT prophylaxis -withhold blood thinners at this time 5. GI prophylaxis -MiraLAX 6. PT/OT -weightbearing as tolerated with walker and assistance as needed 7. Encourage incentive spirometer use Time with Patient: Less than 30
[2024-06-11] MEDS: GABAPENTIN 300 MG CAP PO PRN (15:46)
[2024-06-11] MEDS ORDERED: HYDROcodone/APAP 10-325MG 1 EACH TAB PO PRN (17:30)
[2024-06-11] MEDS: IPRATROPIUM-ALBUTEROL 3 ML NEB INHALATION SCH (20:51)
[2024-06-11] MEDS: GABAPENTIN 400 MG CAP PO SCH (21:54)
[2024-06-11] MEDS ORDERED: NON FORMULARY DRUG (Gabapentin [Gabapentin] 600 MG Tablet) PO SCH (22:00)
[2024-06-12 05:17] LABS: Basophils % (A) 0 %; Eosinophils % (A) 0 %; HCT 39.6 % (34.0-46.0); Lymphocytes # (A) 1.1 k/uL (1.0-4.8); Lymphocytes % (A) 9 %; MCHC 32.8 g/dL (31.0-37.0); MCV 94.5 fL (80.0-100.0); Monocytes # (A) 0.6 k/uL (0-1.0); Monocytes % (A) 5 %; Neutrophils # (A) 9.8 k/uL (1.3-7.7); Neutrophils % (A) 85 %; Platelet Count 356 k/uL (150-450); RBC 4.19 m/uL (3.80-5.40); RDW 12.2 % (11.5-15.5); WBC 11.5 k/uL (3.8-10.6)
[2024-06-12 05:25] LABS: African American GFR (CKD) >90 (>60 ml/min/1.73 sqM); Anion Gap 4 mmol/L; Blood Urea Nitrogen 12 mg/dL (7-17); Calcium 9.2 mg/dL (8.4-10.2); Carbon Dioxide 25 mmol/L (22-30); Chloride 105 mmol/L (98-107); Glucose 127 mg/dL (74-99); Non-African American GFR(CKD) >90 (>60 ml/min/1.73 sqM); Potassium 4.9 mmol/L (3.5-5.1); Sodium 134 mmol/L (137-145)
[2024-06-12] MEDS ORDERED: TRANEXAMIC 1,000 MG/100ML-NACL 1,000 MG in SALINE 1 100ML.BAG IVPB PRN (06:00)
[2024-06-12 08:53] LABS: Appearance,Urine Clear (Clear); Bilirubin,Urine Negative (Negative); Blood,Urine Negative (Negative); Color,Urine Colorless; Glucose,Urine (UA) Negative (Negative); Ketones,Urine Negative (Negative); Leukocyte Esterase,Urine Negative (Negative); Nitrite,Urine Negative (Negative); PH, Urine 5.5 (5.0-8.0); Protein,Urine Negative (Negative); Specific Gravity,Urine 1.012 (1.001-1.035); Urobilinogen,Urine <2.0 mg/dL (<2.0)
[2024-06-12] MEDS: IV FLUID CONTINUATION 1,000 ML IV ONE ×2 (12:09→13:42)
[2024-06-12] MEDS: ONDANSETRON 4 MG/2 ML VIAL IVP PRN (12:32)
[2024-06-12] MEDS: fentaNYL (PF) 50 MCG/ML 2 ML AMP IVP PRN (12:35)
--- NOTE | 2024-06-12 13:22 | P.PN ---
Progress Note - Text Progress Note Date: 06/12/24 PT S/E THIS AM. SHE IS STILL IN PAIN AND NOT ABLE TO TOLERATE THIS. SHE STATES SHE IS READY FOR SURGERY. WE DISCUSSED RISKS AND BENEFITS AT LENGTH AGAIN OUTLINED IN HER RISK REVIEW. THESE INCLUDE BUT ARE NOT LIMITED TO RISK OF BLEEDING INFECTION DAMAGE TO TISSUES, NERVE DAMAGE, DURAL TEAR AND CSF LEAK. PAIN, NEED FOR MORE SURGERY, REVISION, RISK OF ANESTHESIA UP TO AND INCLUDING . SHE WAS WILLING TO ASSUME THESE RISKS AND ALL THE RISKS OF SURGERY. SITE WAS MARKED. CONSENT CONFIRMED AND SIGNED. SHE WAS WILLING TO PROCEED WITH SURGERY.
[2024-06-12] MEDS: LACTATED RINGERS 1,000 ML BAG IV STA (13:44)
[2024-06-12] MEDS ORDERED: NEOSTIGMINE 1 MG/ML 10 ML VIAL ONE (14:01)
[2024-06-12] MEDS ORDERED: GLYCOPYRROLATE 0.2 MG/ML 2 ML VIAL ONE (14:01)
[2024-06-12] MEDS ORDERED: KETAMINE HCL IN 0.9 % NACL 50 MG/5 ML SYRINGE ONE (14:01)
[2024-06-12] MEDS ORDERED: HYDROmorphone (PF) 1 MG/ML ONE (14:01)
[2024-06-12] MEDS ORDERED: ROCURONIUM 10 MG/ML (5 ML VIAL) IV ONE (14:01)
[2024-06-12] MEDS ORDERED: MIDAZOLAM 2 MG/2 ML VIAL ONE (14:01)
[2024-06-12] MEDS ORDERED: SUCCINYLCHOLINE CHLORIDE 200 MG/10 ML VIAL IV ONE (14:01)
[2024-06-12] MEDS ORDERED: LIDOCAINE 1% INJ 10MG/ML (20 ML MDV) ONE (14:01)
[2024-06-12] MEDS ORDERED: TRANEXAMIC 1,000 MG/100ML-NACL PREMIX BAG ONE (14:01)
[2024-06-12] MEDS ORDERED: fentaNYL (PF) 50 MCG/ML 2 ML AMP ONE (14:01)
[2024-06-12] MEDS ORDERED: PROPOFOL 10 MG/ML 20 ML VIAL IV ONE (14:01)
[2024-06-12] MEDS: THROMBIN (BOVINE) 5,000 UNIT VIAL MISCELLANE ONE (14:57)
[2024-06-12] MEDS: LIDOCAINE 2%-EPI 1:100,000 20 ML VIAL SQ ONE (14:57)
[2024-06-12] MEDS: BUPIVACAINE (PF) 0.5% 30 ML VIAL SQ ONE (14:58)
[2024-06-12] MEDS: LACTATED RINGERS 1,000 ML IV ONE (15:54)
[2024-06-12] MEDS: methylPREDNISolone ACETATE 40 MG/ML 1 ML VIAL MISCELLANE ONE (16:01)
--- NOTE | 2024-06-12 16:41 | P.OP ---
Date of Procedure: 06/12/24 Preoperative Diagnosis: 1. SEVERE LLE RADICULOPATHY 2. S/P L5-S1 LAMINOFORAMINOTOMY WITH MICRODISCECOMTY 3. 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 LOW BACK PAIN, SEVERE Postoperative Diagnosis: 1. SEVERE LLE RADICULOPATHY 2. S/P L5-S1 LAMINOFORAMINOTOMY WITH MICRODISCECOMTY 3. 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 LOW BACK PAIN, SEVERE 5. LEFT L5-S1 PARS FRACTURE, POA. Procedure(s) Performed: 1. REEXPLORATION L5-S1 LEFT LAMINOFORAMINOTOMY WITH FACETECTOMY AND MICRODISCECOMTY, DECOMPRESSION 2. L5-S1 OPEN TREATMENT PARS FRACTURE 3. L5-S1 NONSEGMENTAL INSTRUMENTATION Implants: K[employer] EVEREST RODS AND SCREWS DECADRON MAGNATOS Anesthesia: GETA Surgeon: Natanael Silverman [employer] Glass Technician #1: Domenico Bonilla (WAS PRESENT AND ASSISTED WITH ALL ASPECTS OF THE CASE FROM POSITION TO DRESSING PLACEMENT) Estimated Blood Loss (ml): 50 IV fluids (ml): 1,200 Urine output (ml): 300 Pathology: none sent Condition: stable Disposition: PACU Indications for Procedure: Spine Surgery Clinical and Risk Review Mouna Stern is a 44 yo female presenting for evaluation of severe acute onset low back pain and LLE radiculopathy s/p L5-S1 microdiscecomty 6 weeks ago. It was my pleasure to have seen and examined Mouna Stern . In our visit today we have had a chance to go over subjective complaints, physical examination findings and treatments including the natural course history without intervention and various interventional options. The patients imaging demonstrates exhuberent scar tissue formation around the surgical bed of L5-S1 on the left with edema and severe S1 compression. On physical exam, Mouna Stern demonstrates severe pain with motion of the lumbar spine, pain with movement of the LLE, +SLR LLE. Tensioning and weakness in S1 distribution along with pain in the calf and back of the leg to the foot which is now numb. I have explained to the patient that as their condition progresses it will cause further neurological deficits and eventual paralysis. Based on the patients imaging, physical exam, and the rapid progression and disabling nature of their symptoms, at this time I recommend surgery in the form or a: L5-S1 laminoforaminotomy with reexploration and decompression. I discussed the risk and benefits of this procedure at length with Mouna Stern . The patient and daughter agreed to considered pursuing the procedure abovementioned. Prior to surgery, she should follow up with her PCP (Cardio, ID, IM etc) for clearance. Questions were invited and answered, and the patient wishes to proceed as outlined below. Currently, I am recommendin. L5-S1 reexploration laminoforaminotomy with decompression and microdiscectomy 2. Follow up with PCP for surgical clearance 3. Review of surgical risks and benefits as well as an educational packet on the proposed surgical procedure. Risks: All surgical procedures come with inherent risks, including those related to positioning, anesthesia, intraoperative findings, and postoperative complications. It is important to understand that surgery does not come with any guarantee of a successful outcome as complications and adverse events are always possible. The patient was given a handout in office today discussing the surgical procedure and risks associated with the intervention, both of which were discussed with the patient. These risks include but are not limited to the f ollowing: * Experiencing same, different or even worse symptoms in back, neck, arms, or legs compared to before surgery. * Requiring further surgery or other forms of treatment presently or at some time in the future at same or other levels of the intended spine surgery. * On an extreme but fortunately relatively rare basis severe complication such as blindness, stroke, heart attack, temporary and/or permanent nerve injury, paralysis, coma, or may occur, sometimes without known explanation. * Surgical complications may include but are not limited to risk of infection, fluid accumulation in the surgical dissection site, including a seroma or hematoma, that requires additional surgery, wound drainage, bleeding, new numbness or weakness, vision changes/loss, spinal fluid leakage, non-healing and/or infected incision, headaches, difficulty or inability to swallow, hoarseness, hemopneumothorax, pneumothorax, impotence, retrograde ejaculation, vaginal dryness; injury to nerves, spinal cord, blood vessels, lymphatics or other vital organs (i.e., bowel injury, injury to the great vessels); heterotopic bone formation; complications related to the hardware such as screws, rods, cages including misplaced hardware, device failure, instrumentation at the wrong spine level, hardware fracture/breakage, or hardware loosening; vertebral failure of the spinal column above or below the newly placed hardware; retained surgical instrumentations or devices and the need for further surgery. * Medical risks of the planned spine surgery include but are not limited to generalized Infections to the whole body or local areas outside of the surgical site (sepsis), heart attack, bleeding, anaphylaxis, meningitis, seizure, epilepsy, hearing loss, burn waterman, laceration of the head or other areas of the body, bruising, hypersensitivity of the skin, bladder over distension; allergic reaction; shoulder injury related to positioning; fat, blood and air clots to other areas of the body like heart, lungs, brain; failure of internal organs such as lungs, kidneys, liver and excessive bleeding. If blood transfusions are necessary, note that transfusions may cause intolerance reactions such as anaphylaxis or other complex reactions. * Despite best efforts, the results of spine surgery might not heal in terms of bone, soft tissues such as skin, fascia, ligaments, and joints. Additionally, in order to achieve best possible results, spine surgery may be carried out beyond the initially planned levels and involve decompression, fusion including insertion of hardware at levels other than the original intended area of surgical interest change some portions of the procedure in order to ensure the best possible outcomes. * With spine surgery and spinal fusion, there are different off label uses of instrumentation (devices, implants and hardware) as well as biological substances (bone morphogenic proteins, demineralized bone matrix) as well as using extra bone from allograft sources (i.e. cadaver bone) or autograft (iliac crest bone, ribs, or the spine itself). The patient has been given information about these practices and their inherent risks and benefits. The patient has had a chance to review all the listed information, has been given print outs detailing this information, and has had all his/her questions answered to their satisfaction. It was my pleasure to have seen and examined Mouna Stern . In our visit today we have had a chance to go over my understanding of our patient's current condition, the natural course history without intervention and various interventional options. Questions were invited and answered, and the patient wishes to proceed as outlined above. I have seen and examined the patient for 25 minutes and we have spent more than 50% of the time in repeat and detailed counseling about the patient's condition, its natural course history with out and as much as can be predicted with surgery and re-review of various surgical treatment options. In conclusion, Mouna Post and daughter in room requested we proceed with the above suggested surgery and are willing to accept risks and limitations of the suggested surgery as nature of the disease process and our best attempts at treatment for the condition. Thank you again for allowing us to be part of your patient's care. Please don't hesitate to contact me if you have any further questions. Signed and authenticated by: Natanael Mendoza [facility] [address], [address] [address] Description of Procedure: L5-S1 LEFT LAMINOFORAMINOTOMY WITH OPEN TREATMENT L5-S1 PARS FRACTURE AND STABILIZATION The patient was seen and examined in the preoperative area. All preoperative protocols were followed. Informed consent was obtained, risks and benefits of the procedure were discussed at length. Risks including bleeding infection damage to the surrounding tissue and risk of reoperation were discussed with the patient. Risk of anesthesia up to and including was discussed with the patient. These are outlined in the risk review. They were willing to accept these risks and all the risks of surgery. The patient was given a weight-based dose of antibiotics in the form of 2 g Ancef. The patient was seen and evaluated by the anesthesia team who deemed them fit for surgery. The site was marked, the patient was willing to proceed with the procedure. The patient was transferred to the operative suite by the Department of anesthesia. They were then drifted off to sleep by the department anesthesia and GETA was performed. The patient tolerated this well. Hinton catheter was placed by nursing staff, a-traumatically. Once confirmation of lines and ventilation the patient was transferred to a prone Joaquim table very carefully. All bony prominences including wrists, elbows, axilla, chest, hips, and thighs, and feet were padded very well. Special attention was paid to the genitalia, and these were padded accordingly. SCDs were placed on bilateral lower extremities and were connected. Arms were well padded and placed on arm boards up and out in the 90/90 position. Once in position, again we confirmed good ventilation capabilities and that lines were running appropriately. The patients Lumbar spine was then exposed. 1010s were placed outlining the incision site. Standard alcohol was used to clean the incision site and allowed to dry. C-arm was used to needle localize the pedicles at L5-S1 and bio-jessica the patient and confirm level for incision which was marked with a skin marker. Operative briefing was performed with all teams and everyone in agreement to proceed. The patient was then prepped and draped in a normal sterile fashion. T imeout was then performed, and all parties agreed with the procedure to be performed. Skin incision was made over the previously marked area. Fluoroscopy was then used to target the lamina and facet joints on the right hand side of L5-S1 and initial dilator for tubular retractor system was used to identify this area. Once in a good position, sequential dilation was taken up to 26 mm and tube s elected. A 100 mm tube was then placed and secured to the table. This was confirmed to be in good position on AP and Lateral imaging. The area was reexplored and scar tissues removed. On exploration, it was noted that there was a fracture through the pars on the left at L5-S1 and the IAP of L5 was floating and no longer attached. This was removed. We then explored more and there was exhuberent scar tissue in the wound bed. The initial decompression was adequate. There was scar build up in the foramen and around the S1 root which was teathered to the disc space. This was carefully released with bipolar and curettes. Then high speed angelita was used to decompression S1 further caudally. There was also fracture through the superior portion of the S1 SAP. It was determined at this time that it was futile to save this. SAP and IAP were removed and large re-decompression of this area was done cleaning scar off the roots and performing complete facetectomy, foraminotomy and laminotomy. The ligamentum flavum was removed with Kerrison and curette. Dura and roots protected. Bipolar was used for hemostasis and scarring of the annulotomy. The area was irrigated, and meticulous hemostasis performed. The bed was inspected, and all roots have ample room and are decompressed along with the dura. There were no injuries. On Xray then there was instability noted and we elected for stabilization to prevent this from getting worse for now. We were able to create aeroplane pilot holes with angelita in L5 and S1 starting points through the tubular retractor. We then under biplanar fluro passed a jamshidi into L5 and S1 on the left. Wires were then placed optimally and screws were then measured and selcted and placed over wires. Screws were optimally placed on AP and lateral. Wires removed. We then placed tabs and selected a phill and placed this. Set screws were placed and final tightened. Tabs were removed. AP and Lat Fluro confirmed good placement of hardware, good reduction and stabilization of fracture. Retractors were then removed. The wound was copiously irrigated with NSS. The deep fascia was closed with 0 PDS. Deep sub-q with 0 Vicryl and superficial with 2-0 Vicryl. Skin closed with henna. The wound edges approximated well. The wound was then cleaned, and dressed with adaptic, 4x4 and abd with tape. The patient was then transferred off the table back to their hospital bed a- traumatically. They were extubated by the department of anesthesia. They were then transferred to PACU in stable condition having tolerated the procedure with no complications.
[2024-06-12] MEDS ORDERED: HYDROcodone/APAP 5-325MG 1 EACH TAB PO PRN (16:48)
[2024-06-12] MEDS ORDERED: SENNOSIDES-DOCUSATE SODIUM 1 EACH TAB PO PRN (16:48)
[2024-06-12] MEDS: HYDROmorphone 0.5 MG/0.5 ML SYRINGE IVP STA (17:06)
[2024-06-12] MEDS: diazePAM 5 MG TAB PO SCH (17:25)
[2024-06-12] MEDS: ACETAMINOPHEN TAB 325 MG TAB PO SCH (18:22)
[2024-06-12] MEDS: CYCLOBENZAPRINE 10 MG TAB PO PRN (18:22)
[2024-06-12] MEDS: HYDROmorphone 1 MG/ML 1 ML SYRINGE IVP PRN (19:21)
--- NOTE | 2024-06-12 19:35 | XR ---
EXAMINATION TYPE: XR lumbar spine 2 or 3V, FL guidance operating room DATE OF EXAM: 06/12/2024 7:22 PM COMPARISON: Pre Operative Images if available both CT/MRI or plain film CLINICAL INDICATION: Female, 44 years old with history of LUMBAR MICRODISCECTOMY; TECHNIQUE: XR lumbar spine 2 or 3V, FL guidance operating room, multiple fluoroscopic images provided for procedure. Total fluoroscopy time: 54 seconds Total submitted images to PACS: 2 DAP: 24.59 mGym2 Gycm2 uGym2 cGycm2 or equivalent. FINDINGS: Fluoroscopic images during internal fixation/arthroplasty demonstrate fixation hardware in appropriat e position. Hardware appears intact. No immediate complication identified. IMPRESSION: 1. No evidence for intraoperative complication. 2. Please see the operative/procedural note for further details. [facility], , 06/12/2024 7:33 PM
[2024-06-12] MEDS ORDERED: LORazepam 2 MG/ML INJ IV PRN (21:27)
--- NOTE | 2024-06-12 21:36 | CT ---
EXAMINATION TYPE: CT lumbar spine wo con DATE OF EXAM: 06/12/2024 9:28 PM COMPARISON: None. CLINICAL INDICATION: Female, 44 years old with history of s/p L5-S1 left side revision microdiscectom y; PHH, s/p L5-S1 left side revision microdiscectomy. TECHNIQUE: Multiple axial images were obtained from the midportion of T11 through the sacroiliac joseline nts. Soft tissue and bone windows in coronal and sagittal planes were obtained and reviewed. Contrast used: mL of , (None, if empty). Oral contrast used: (None, if empty). CT DLP: 1506.7 mGycm, Automated exposure control for dose reduction was used. FINDINGS: Mild multilevel degeneration changes of the spine with osteophyte formation which are minimal and fac et joint arthropathy. Postsurgical changes at L5-S1 with surgical hardware in place. Hardware is inta ct. Surgical clips in place. No appreciable organizing fluid collection given limited CT in beam hard ening from fixation hardware. Spinal alignment is within normal limits. No evidence for significant s mallory canal or neural foraminal stenosis. No acute abdominal process. IMPRESSION: Postsurgical changes with hardware intact. No evidence for organizing fluid collection or complicatio n given limitations of CT exam. [facility], , 06/12/2024 9:33 PM
[2024-06-13] MEDS: MAGNESIUM HYDROXIDE 2,400 MG/30 ML CUP PO PRN (08:57)
--- NOTE | 2024-06-13 09:37 | P.PN ---
Subjective Progress Note Date: 06/13/24 Principal diagnosis: History of Lumbar stenosis; herniated nucleus pulposus, lumbar; Lumbar back pain with radiculopathy affecting left lower extremity; Intractable back pain; histo ry of recent L5-S1 left laminoforaminotomy with microdiscectomy Patient was seen at bedside this morning lying in the semirecumbent position with dressing present over lumbar spine. Patient says she did discuss findings from surgery with Dr. Silverman earlier this morning and about potential furt her treatment options. Patient says she would like to think over these options at this time. She says she is eager to work with therapy later this morning. Hinton/catheter is currently in place. Patient says she is still having numbness and tingling in the legs at this time. Patient denies any other orthopedic complaints. Objective - Vital Signs Vital signs: Vital Signs Temp 98.4 F 06/13/24 01:07 Pulse 96 06/13/24 01:07 Resp 14 06/13/24 01:07 BP 112/66 06/13/24 01:07 Pulse Ox 95 06/13/24 01:07 FiO2 Intake & Output 06/12/24 06/13/24 06/13/24 18:59 06:59 18:59 Intake Total 1650 Output Total 975 800 Balance 675 -800 Intake: IV 1650 Output: Urine 925 800 Estimated Blood Loss 50 Other: Voiding Method Indwelling Catheter # Voids 3 - Exam Inspection: Patient lying in the right lateral recumbent position. Negative for any open fractures, significant erythema/ecchymosis/open wounds. Dressing ap pears to be clean, dry, intact over lumbar spine. Sensation: Somewhat altered/diminished in the left calf. Equal, symmetric, by intact throughout the rest of the upper and lower extremities on exam. Palpation: Significant tenderness to patient over the lower lumbar spine at midline and over the left SI joint. Nontender to palpation throughout rest of exam. Range of motion: Patient has full range of motion throughout bilateral upper extremities and right lower extremity on exam. Patient does have limited range of motion in left hip flexion/extension on exam secondary to referred pain/sti ffness to the low back. Patient does have limited range of motion in dorsi/plantarflexion of the left ankle as well as EHL/FHL. Patient is able to flex left knee to about 135 degrees and lacks about 3 degrees full extension Motor: 3+/5 in EHL/FHL on the left lower extremity. 4-/5 in left ankle and dorsi/plantarflexion. 4-/5 in resisted left hip flexion to extension. 4/5 in resisted left knee flexion-extension. 4+/5 in all other major motor groups. Neurovascular: Radial pulse intact, 2+ bilaterally. Cap refill under 3 seconds in digits of upper and lower extremities. DP pulses palpable bilaterally. Special test: Negative Homans bilaterally. Negative clonus bilaterally. Negative Shashank bilaterally. Positive straight leg raise test on the left lower extremit - Labs CBC & Chem 7: 06/13/24 04:29 06/13/24 04:29 Assessment and Plan Assessment: History of Lumbar stenosis; herniated nucleus pulposus, lumbar; Lumbar back pain with radiculopathy affecting left lower extremity; Intractable back pain; history of recent L5-S1 left laminoforaminotomy with microdiscectomy -Postop day 1 status post: 1. REEXPLORATION L5-S1 LEFT LAMINOFORAMINOTOMY WITH FACETECTOMY AND MICRODISCECOMTY, DECOMPRESSION 2. L5-S1 OPEN TREATMENT PARS FRACTURE 3. L5-S1 NONSEGMENTAL INSTRUMENTATION Plan: 1. History of Lumbar stenosis; herniated nucleus pulposus, lumbar; Lumbar back pain with radiculopathy affecting left lower extremity; Intractable back pain; history of recent L5-S1 left laminoforaminotomy with microdiscectomy -surgery performed yesterday, 06/12/2024 REEXPLORATION L5-S1 LEFT LAMINOFORAMINOTOMY WITH FACETECTOMY AND MICRODISCECOMTY, DECOMPRESSION; L5-S1 OPEN TREATMENT PARS FRACTURE; L5-S1 NONSEGMENTAL INSTRUMENTATION. Patient stable bedside this morning on 4 S. Hinton/catheter in place. As long as patient gets up with PT/OT and is able to ambulate around the room, Hinton/catheter to be removed. Dr. Silverman did discuss the findings of the surgery and further treatment options with the patient this morning. Patient to think over treatment options at this time. Pain medication as needed. Patient may weight-bear as tolerated with walker and assistance. We will continue to follow patient during stay in hospital. 2. Appreciate medical management 3. Pain management -[facility]; Flexeril; gabapentin 4. DVT prophylaxis - mechanical 5. GI prophylaxis -MiraLAX 6. PT/OT -weightbearing as tolerated with walker and assistance as needed 7. Encourage incentive spirometer use 8. Discharge planning -pending Time with Patient: Less than 30
--- NOTE | 2024-06-13 11:17 | PN ---
PROGRESS NOTE SUBJECTIVE: A 44-year-old white female. She is in for lumbar surgery. She has postsurgical changes with hardware intact. She had a revision to the microdiskectomy at L5-S1. She has continued to have pain, but not as bad as before. Possible discharge home tomorrow if doing better. OBJECTIVE: CARDIOVASCULAR: S1, S2. LUNGS: Clear. GI: Soft. HEMATOLOGY: Negative Homans. PSYCH: Fair mood and affect. ASSESSMENT AND PLAN: Prognosis guarded. PT, OT. Possibly go home in the next day or 2 if continues to improve. Otherwise, she will need to progress with the cage surgery down the road if she worsens. Prognosis guarded. Continue home medicines as ordered. MMODL / IJN: [id number] /
[2024-06-13 11:21] LABS: Basophils # (A) 0.02 X 10*3/uL (0.00-0.10); Basophils % (A) 0.2 %; Eosinophils # (A) 0 X 10*3/uL (0.04-0.35); Eosinophils % (A) 0 %; HCT 37.1 % (37.2-46.3); Lymphocytes # (A) 1.06 X 10*3/uL (0.90-5.00); Lymphocytes % (A) 8.8 %; MCHC 32.3 g/dL (32.0-37.0); MCV 95.9 FL (80.0-97.0); Mean Platelet Volume 9.8 FL (9.5-12.2); Monocytes # (A) 0.84 X 10*3/uL (0.20-1.00); NRBC Per 100 WBC 0 X 10*3/uL (0.00-0.01); Neutrophils # (A) 10.03 X 10*3/uL (1.80-7.70); Neutrophils % (A) 83.5 %; Platelet Count 342 X 10*3/uL (140-440); RBC 3.87 X 10*6/uL (4.10-5.20); RDW 12.9 % (11.5-14.5); WBC 12.01 X 10*3/uL (4.50-10.00)
[2024-06-13 11:23] LABS: Blood Urea Nitrogen 10.2 mg/dL (9.0-27.0); Calcium 8.7 mg/dL (8.7-10.3); Carbon Dioxide 22.4 mmol/L (21.6-31.8); Chloride 105 mmol/L (96-109); Glucose 128 mg/dL (70-110); Potassium 4.8 mmol/L (3.5-5.5); Sodium 140 mmol/L (135-145)
[2024-06-13] MEDS: KETOROLAC 15 MG/ML 1 ML VIAL IVP PRN (11:36)
[2024-06-14 07:27] VITALS: BP 100/57; RESP 18; TEMP 98.1
[2024-06-14 08:59] VITALS: PULSE 86
--- NOTE | 2024-06-14 11:57 | P.DS ---
Providers Date of admission: 06/10/24 20:18 Expected date of discharge: 06/14/24 Attending physician: Natanael Silverman DO Consults: 06/10/24 20:18 Consult Physician Routine Consulting Provider: Sudarshan Melton Reason/Comments: medical management and clearance Do you want consulting provider notified?: Yes Primary care physician: Sudarshan Melton [facility] Course: Date of admission: 06/11/2024 Date of discharge: 06/14/2024 Admission diagnosis: 1. SEVERE LLE RADICULOPATHY 2. S/P L5-S1 LAMINOFORAMINOTOMY WITH MICRODISCECOMTY 3. 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 LOW BACK PAIN, SEVERE Discharge diagnosis: 1. SEVERE LLE RADICULOPATHY 2. S/P L5-S1 LAMINOFORAMINOTOMY WITH MICRODISCECOMTY 3. 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 LOW BACK PAIN, SEVERE 5. LEFT L5-S1 PARS FRACTURE, POA. Attending physician: Dr. Silverman Surgical procedures: 1. REEXPLORATION L5-S1 LEFT LAMINOFORAMINOTOMY WITH FACETECTOMY AND MICRODISCECOMTY, DECOMPRESSION 2. L5-S1 OPEN TREATMENT PARS FRACTURE 3. L5-S1 NONSEGMENTAL INSTRUMENTATION Brief history: Patient is a 44-year-old female with a history of recurrent disc herniation versus scar buildup causing S1 compression and radiculopathy. At this point patient has failed conservative treatment measures and has opted to proceed with a elective reexploration L5-S1 left laminal foraminotomy with facetectomy and microdiscectomy, decompression L5-S1 open treatment pars fracture; L5-S1 nonsegmental instrumentation. Hospital course: Details of patient's surgery can be found in operative report. Patient tolerated the procedure well and was subsequently transported to orthopedic floor. Patient's orthopeidc and medical care was provided daily. Patient had daily laboratory tests performed for evaluation of overall blood counts. Patient had daily physical therapy to include strengthening range of motion as well as education with walker ambulation. Patient was treated with [Xarelto] for their postoperative DVT prophylaxis during their inpatient stay. Patient was noted to have a relatively uneventful postoperative course. Patient reported satisfactory pain control with oral pain medications by postoperative day 2. Patient showed satisfactory progress with physical therapy. Patient moved steadily through the program and had no difficulty meeting the goals by postoperative day 2. Given patient's otherwise satisfactory course and having met physical therapy goals, plan is to discharge patient [home] on postoperative day 2. Discharge condition/disposition: Patient will be discharged [home] in stable condition. Discharge medications: Instructions are given on resumption of patient's normal daily medications per primary care recommendation, in addition patient will be prescribed [place]; Duricef; Flexeril; resume gabapentin and steroids at home. Spine Discharge and Recovery Instructions Date of Surgery: 06/12/2024 Diagnosis: 1. SEVERE LLE RADICULOPATHY 2. S/P L5-S1 LAMINOFORAMINOTOMY WITH MICRODISCECOMTY 3. 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 LOW BACK PAIN, SEVERE 5. LEFT L5-S1 PARS FRACTURE, POA. Procedure(s) Performed: 1. REEXPLORATION L5-S1 LEFT LAMINOFORAMINOTOMY WITH FACETECTOMY AND MICRODISCECOMTY, DECOMPRESSION 2. L5-S1 OPEN TREATMENT PARS FRACTURE 3. L5-S1 NONSEGMENTAL INSTRUMENTATION Medications: See medication list All medication refills should be obtained through your primary care doctor or your clinic spine surgeon. Please discuss prescription refills at your follow up appointment. Do not call the hospital for medication refills. Dressing: Leave your dressing in place for a total of 5 days post operatively. Then you may remove your dressing and leave open to air. Keep the area clean and if not able to keep area clean, then cover with sterile gauze and tape. Showering: You may shower 3 days after your procedure allowing soap and water to run over incision. Do not scrub. Do not soak. Blot dry. Follow up: Please confirm a follow up appointment with your surgeon 3 weeks post operatively. Please make an appointment to follow up with your PCP in 1-2 weeks after surgery for evaluation '3 phase, 3-week plan' POST OP WEEKS 1-3 1. Lifting/carrying/pushing/pulling limited to less than 5 pounds. 2. Do not sit for longer than 15 minutes at one time. Get up and walk around. Prolonged sitting is NOT advised. If you lay down, see if you can tolerate laying down on you front (belly side) 3. Walk for periods of 15 minutes = 1 mile but no longer; do it multiple times times each day. 4. Ice your low back after activity. POST OP WEEKS 3-6 1. Lifting limited to less than 20 pounds. 2. Do not sit for longer than 30 minutes at a time. Frequently change positions. Use a sit-to stand workstation or take frequent breaks from sitting if you have returned to work. 3. Walk for 30 minutes each day. If possible, do these three or more times a day POST OP WEEKS 6+ At your 6-week appointment we will give you a physical therapy referral to focus on a core stabilization and strengthening program. You should also work on leg & buttock strengthening, hamstring & quadriceps stretching, and continue a low impact aerobic activity program such as swimming, walking, or riding a stationary bicycle. During the initial 6 weeks after your surgery, you are at the highest risk of re-injuring your spine. You should generally avoid BLT's (bending, lifting and twisting combination motions) and follow the above guidelines to reduce the chance of reinjury. You can anticipate post op appointments in our office at approximately 3 weeks and 6 weeks after your surgery. INCISION CARE: If your incision is not draining you do NOT need to cover it with a dressing. Keep your incision clean, dry and intact. In most cases, we apply skin glue, henna or sutures to the incision at the time of surgery. This will be like a crust or have the appearance of a scab and will fall off in time on its own. The stitches or henna need to be removed at 3 weeks post op appointment. You may begin to shower 3 days after surgery (this allows the glue to olivas well). However, please avoid scrubbing the incision site or peeling off any of the skin glue. This will ensure optimal healing of your incision. Also, during this time avoid soaking the incision area in water - this includes swimming pools, hot tubs or baths. No ointments, lotions or oils on the incision until your surgeon allows. Leave henna, sutures or glue in place. Neurological dysfunction that comes on suddenly can also be a sign of a stroke. Below some common symptoms of a stroke are listed: B - balance difficulty such as sudden onset walking or leaning to one side - NEW E - eye problem such as sudden double vision or trouble seeing on one side - NEW F - Facial weakness or numbness on one side - NEW A - Arm or leg weakness or numbness on one side - NEW S - Slurred speech or difficulty with word finding - NEW T - Time is BRAIN! Call 911 as soon as you recognize these symptoms Diet: Consume a regular diet rich in vegetables and lean protein such as chicken or fish. You should consume in a ratio of approximately 20% fats|40% carbohydrates|40%protein. Vegetables, sweet potatoes, brown rice or quinoa are examples of good carbohydrates. Chips, white bread, cookies and sweets/sugar are examples of bad carbohydrates. Limit your bad carbs, go wild with good carbs. "Life's Simple 7" Guidelines as per [place] [employer] These will help you reclaim your life after surgery and mailing machine helper in your recovery, keeping in mind your restrictions. (1) Get Active. Physical activity can help people lose weight, control high blood pressure and cholesterol, feel emotionally better, and sleep better. (2) Control Cholesterol. Avoid a diet high in saturated fat, trans fat, & cholesterol. Limit whole milk & cream, ice cream, butter, egg yolks, processed meats (like sausage and hot dogs), and fatty meats. Choose healthy foods that are low in saturated fat, trans fat and cholesterol which include: Fruits and vegetables, fiber rich grain products (like whole grain pasta and brown rice), lean meat such as chicken, fish, nuts, seeds, and legumes. (3) Eat Better. Eat small portions. Shop at the grocery with a list and do not stray from it. Tips for a healthy diet include: Limit sodium intake to less than 1500mg daily, avoid prepackaged, processed, and fast foods, choose a diet rich in fruits, vegetables, and whole grain, high fiber foods, and limit saturated & cholesterol in your diet. (4) Manage Blood Pressure. If you have high blood pressure, you should have a cuff at home so that you can check your blood pressure regularly. Be sure you have a good cuff. An arm one is generally better than a wrist one. Bring the cuff to a doctor's appointment to validate that the measurements that your cuff are taking are accurate. Take your blood pressure twice daily when you are sitting down and relaxing. Record the numbers in a log and bring this log with you to your doctors' appointments. (5) Lose Weight if your BMI is above 25. A healthy BMI is between 19-25. To calculate Your BMI, you may use a Standard BMI Calculator on the NIH BMI website: <www.nhlbi.nih.gov/guidelines/obesity/BMI/bmicalc.htm>. Weigh oneself daily. If you are overweight, set a goal to lose weight. A pound a week loss if needed is a good target. (6) Reduce Blood Sugar. Limit foods and liquids with "added sugars." (Added sugars include sucrose, fructose, glucose, maltose, dextrose, high fructose corn syrup, corn syrup, concentrated fruit juice and honey). (7) Stop Smoking. If you smoke, quitting smoking is one of the best things that you can do for your health. Smoking increases your risk of heart attack, stroke, and peripheral vascular disease, which is a build-up of plaque in your arteries. Please discard all the cigarettes and lighters in your house. Have a plan for what you will do when you have the urge to smoke. Direct and second- hand smoke shortens your life as well as the lives of your family, friends and others around you. For your health and the health of those around you, please consider quitting! Proper Bending Body Mechanics: Maintain a wide stance with one foot slightly in front of the other. Keep your back straight. Bend utilizing the strength in your hips and knees. Do not bend at the waist. Maintain the lifted object at your waist-level close to your body. Avoid lifting weight that causes immediately pain or pain anywhere in the body afterwards. Smoking/Nicotine If there was ever one thing that you could do to increase your overall health, decrease your risk of cardiovascular problems by about 39% the second you make the choice, it is to STOP SMOKING. Your body's most instant gratification is the second you stop smoking. We have all heard the studies, read the articles but it is true, smoking is extremely bad for your overall health, and moreover it is detrimental to your bone health. Nicotine, IN ANY FORM, kills bone cells, prevents your body from healing fractures, and significantly prolongs healing after surgery. In spine surgery specifically, it increases your risk of not healing your bones to create a fusion and increases your risk of having a revision surgery due to this up to 60%. I know it is hard. I know it feels impossible. But there are ways. Take control of your life. We are here to help you through it. And when you are ready, ask us and we can direct you to help if you desire. Use the START Plan to Quit Smoking (please visit the Helpguide.org website listed below for more information): S = Set a quit date. Choose a date within the next 2 weeks, so you have enough time to prepare without losing your motivation to quit. If you mainly smoke at work, quit on the weekend, so you have a few days to adjust to the change. T = Tell family, friends, and co-workers that you plan to quit. Let your friends and family in on your plan to quit smoking and tell them you need their support and encouragement to stop. Look for a quit norah who wants to stop smoking as well. You can help each other get through the rough times. A = Anticipate and plan for the challenges you'll face while quitting. Most people who begin smoking again do so within the first 3 months. You can help yourself make it through by preparing ahead for common challenges, such as nicotine withdrawal and cigarette cravings. R = Remove cigarettes and other tobacco products from your home, car, and work. Throw away all your cigarettes (no emergency pack!), lighters, ashtrays, and matches. Wash your clothes and freshen up anything that smells like smoke. Shampoo your car, clean your drapes and carpet, and steam your furniture. T = Talk to your doctor about getting help to quit. Your doctor can prescribe medication to help with withdrawal and suggest other alternatives. If you can't see a doctor, you can get many products over the counter at your local pharmacy or grocery store, including the nicotine patch, nicotine lozenges, and nicotine gum. Resources for Quitting Smoking: <https://www.[place].gov/documents/mdc/Quit_Tobacco_Resources_for_patients_313 480_7.pdf> Supplementation: Take recommended dosages of Vitamin D and Calcium to help fortify your bones and help them to heal. See your health maintenance packet for dosages and recommended levels. DVT/VTE prophylaxis: You will be given compression stockings from the hospital. Wear these daily for the first two weeks after surgery. You may take them off at night. You may be prescribed a medication to help thin your blood. Take this as directed. If you are not prescribed this medication, early and frequent ambulation has been shown to be the best prophylaxis to deep vein thrombosis and sequelae related to this event. Assessment: 1. SEVERE LLE RADICULOPATHY 2. S/P L5-S1 LAMINOFORAMINOTOMY WITH MICRODISCECOMTY 3. 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 LOW BACK PAIN, SEVERE 5. LEFT L5-S1 PARS FRACTURE, POA. Procedures: 1. REEXPLORATION L5-S1 LEFT LAMINOFORAMINOTOMY WITH FACETECTOMY AND MICRODISCECOMTY, DECOMPRESSION 2. L5-S1 OPEN TREATMENT PARS FRACTURE 3. L5-S1 NONSEGMENTAL INSTRUMENTATION Patient Condition at Discharge: Good Plan - Discharge Summary New Discharge Prescriptions: New cefaDROXiL [Duricef] 500 mg PO Q12HR 5 Days #10 cap Cyclobenzaprine [Flexeril] 10 mg PO TID #21 tab HYDROcodone/APAP 10-325MG [[place] 10-325] 1 tab PO Q4-6H PRN #28 tab PRN Reason: Pain Continue Gabapentin 800 mg PO DIRECTED predniSONE [Deltasone] 20 mg PO BID No Action Gabapentin 600 mg PO TID HYDROcodone/APAP 10-325MG [[place] 10-325] 1 tab PO Q6H PRN PRN Reason: Pain Discharge Medication List Gabapentin 600 mg PO TID 06/11/24 [History] Gabapentin 800 mg PO DIRECTED 06/11/24 [History] HYDROcodone/APAP 10-325MG [[place] 10-325] 1 tab PO Q6H PRN 06/11/24 [History] predniSONE [Deltasone] 20 mg PO BID 06/11/24 [History] Cyclobenzaprine [Flexeril] 10 mg PO TID #21 tab 06/14/24 [Rx] HYDROcodone/APAP 10-325MG [[place] 10-325] 1 tab PO Q4-6H PRN #28 tab 06/14/24 [Rx] cefaDROXiL [Duricef] 500 mg PO Q12HR 5 Days #10 cap 06/14/24 [Rx] Follow up Appointment(s)/Referral(s): Sudarshan Melton MD [Primary Care Provider] - 1-2 days [facility], [NON-STAFF] - As Needed Goodmanson,Natanael, DO [Doctor of Osteopathic Medicine] - 10 Days Activity/Diet/Wound Care/Special Instructions: Spine Discharge and Recovery Instructions Date of Surgery: 06/12/2024 Diagnosis: 1. SEVERE LLE RADICULOPATHY 2. S/P L5-S1 LAMINOFORAMINOTOMY WITH MICRODISCECOMTY 3. 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 LOW BACK PAIN, SEVERE 5. LEFT L5-S1 PARS FRACTURE, POA. Procedure(s) Performed: 1. REEXPLORATION L5-S1 LEFT LAMINOFORAMINOTOMY WITH FACETECTOMY AND MICRODISCECOMTY, DECOMPRESSION 2. L5-S1 OPEN TREATMENT PARS FRACTURE 3. L5-S1 NONSEGMENTAL INSTRUMENTATION Medications: See medication list All medication refills should be obtained through your primary care doctor or your clinic spine surgeon. Please discuss prescription refills at your follow up appointment. Do not call the hospital for medication refills. Dressing: Leave your dressing in place for a total of 5 days post operatively. Then you may remove your dressing and leave open to air. Keep the area clean and if not able to keep area clean, then cover with sterile gauze and tape. Showering: You may shower 3 days after your procedure allowing soap and water to run over incision. Do not scrub. Do not soak. Blot dry. Follow up: Please confirm a follow up appointment with your surgeon 3 weeks post operatively. Please make an appointment to follow up with your PCP in 1-2 weeks after surgery for evaluation '3 phase, 3-week plan' POST OP WEEKS 1-3 1. Lifting/carrying/pushing/pulling limited to less than 5 pounds. 2. Do not sit for longer than 15 minutes at one time. Get up and walk around. Prolonged sitting is NOT advised. If you lay down, see if you can tolerate laying down on you front (belly side) 3. Walk for periods of 15 minutes = 1 mile but no longer; do it multiple times times each day. 4. Ice your low back after activity. POST OP WEEKS 3-6 1. Lifting limited to less than 20 pounds. 2. Do not sit for longer than 30 minutes at a time. Frequently change positions. Use a sit-to stand workstation or take frequent breaks from sitting if you have returned to work. 3. Walk for 30 minutes each day. If possible, do these three or more times a day POST OP WEEKS 6+ At your 6-week appointment we will give you a physical therapy referral to focus on a core stabilization and strengthening program. You should also work on leg & buttock strengthening, hamstring & quadriceps stretching, and continue a low impact aerobic activity program such as swimming, walking, or riding a stationary bicycle. During the initial 6 weeks after your surgery, you are at the highest risk of re-injuring your spine. You should generally avoid BLT's (bending, lifting and twisting combination motions) and follow the above guidelines to reduce the chance of reinjury. You can anticipate post op appointments in our office at approximately 3 weeks and 6 weeks after your surgery. INCISION CARE: If your incision is not draining you do NOT need to cover it with a dressing. Keep your incision clean, dry and intact. In most cases, we apply skin glue, henna or sutures to the incision at the time of surgery. This will be like a crust or have the appearance of a scab and will fall off in time on its own. The stitches or henna need to be removed at 3 weeks post op appointment. You may begin to shower 3 days after surgery (this allows the glue to olivas well). However, please avoid scrubbing the incision site or peeling off any of the skin glue. This will ensure optimal healing of your incision. Also, during this time avoid soaking the incision area in water - this includes swimming pools, hot tubs or baths. No ointments, lotions or oils on the incision until your surgeon allows. Leave henna, sutures or glue in place. Neurological dysfunction that comes on suddenly can also be a sign of a stroke. Below some common symptoms of a stroke are listed: B - balance difficulty such as sudden onset walking or leaning to one side - NEW E - eye problem such as sudden double vision or trouble seeing on one side - NEW F - Facial weakness or numbness on one side - NEW A - Arm or leg weakness or numbness on one side - NEW S - Slurred speech or difficulty with word finding - NEW T - Time is BRAIN! Call 911 as soon as you recognize these symptoms Diet: Consume a regular diet rich in vegetables and lean protein such as chicken or fish. You should consume in a ratio of approximately 20% fats|40% carbohydrates|40%protein. Vegetables, sweet potatoes, brown rice or quinoa are examples of good carbohydrates. Chips, white bread, cookies and sweets/sugar are examples of bad carbohydrates. Limit your bad carbs, go wild with good carbs. "Life's Simple 7" Guidelines as per [place] [employer] These will help you reclaim your life after surgery and mailing machine helper in your recovery, keeping in mind your restrictions. (1) Get Active. Physical activity can help people lose weight, control high blood pressure and cholesterol, feel emotionally better, and sleep better. (2) Control Cholesterol. Avoid a diet high in saturated fat, trans fat, & cholesterol. Limit whole milk & cream, ice cream, butter, egg yolks, processed meats (like sausage and hot dogs), and fatty meats. Choose healthy foods that are low in saturated fat, trans fat and cholesterol which include: Fruits and vegetables, fiber rich grain products (like whole grain pasta and brown rice), lean meat such as chicken, fish, nuts, seeds, and legumes. (3) Eat Better. Eat small portions. Shop at the grocery with a list and do not stray from it. Tips for a healthy diet include: Limit sodium intake to less than 1500mg daily, avoid prepackaged, processed, and fast foods, choose a diet rich in fruits, vegetables, and whole grain, high fiber foods, and limit saturated & cholesterol in your diet. (4) Manage Blood Pressure. If you have high blood pressure, you should have a cuff at home so that you can check your blood pressure regularly. Be sure you have a good cuff. An arm one is generally better than a wrist one. Bring the cuff to a doctor's appointment to validate that the measurements that your cuff are taking are accurate. Take your blood pressure twice daily when you are sitting down and relaxing. Record the numbers in a log and bring this log with you to your doctors' appointments. (5) Lose Weight if your BMI is above 25. A healthy BMI is between 19-25. To calculate Your BMI, you may use a Standard BMI Calculator on the NIH BMI website: <www.nhlbi.nih.gov/guidelines/obesity/BMI/bmicalc.htm>. Weigh oneself daily. If you are overweight, set a goal to lose weight. A pound a week loss if needed is a good target. (6) Reduce Blood Sugar. Limit foods and liquids with "added sugars." (Added sugars include sucrose, fructose, glucose, maltose, dextrose, high fructose corn syrup, corn syrup, concentrated fruit juice and honey). (7) Stop Smoking. If you smoke, quitting smoking is one of the best things that you can do for your health. Smoking increases your risk of heart attack, stroke, and peripheral vascular disease, which is a build-up of plaque in your arteries. Please discard all the cigarettes and lighters in your house. Have a plan for what you will do when you have the urge to smoke. Direct and second- hand smoke shortens your life as well as the lives of your family, friends and others around you. For your health and the health of those around you, please consider quitting! Proper Bending Body Mechanics: Maintain a wide stance with one foot slightly in front of the other. Keep your back straight. Bend utilizing the strength in your hips and knees. Do not bend at the waist. Maintain the lifted object at your waist-level close to your body. Avoid lifting weight that causes immediately pain or pain anywhere in the body afterwards. Smoking/Nicotine If there was ever one thing that you could do to increase your overall health, decrease your risk of cardiovascular problems by about 39% the second you make the choice, it is to STOP SMOKING. Your body's most instant gratification is the second you stop smoking. We have all heard the studies, read the articles but it is true, smoking is extremely bad for your overall health, and moreover it is detrimental to your bone health. Nicotine, IN ANY FORM, kills bone cells, prevents your body from healing fractures, and significantly prolongs healing after surgery. In spine surgery specifically, it increases your risk of not healing your bones to create a fusion and increases your risk of having a revision surgery due to this up to 60%. I know it is hard. I know it feels impossible. But there are ways. Take control of your life. We are here to help you through it. And when you are ready, ask us and we can direct you to help if you desire. Use the START Plan to Quit Smoking (please visit the [email or web address] website listed below for more information): S = Set a quit date. Choose a date within the next 2 weeks, so you have enough time to prepare without losing your motivation to quit. If you mainly smoke at work, quit on the weekend, so you have a few days to adjust to the change. T = Tell family, friends, and co-workers that you plan to quit. Let your friends and family in on your plan to quit smoking and tell them you need their support and encouragement to stop. Look for a quit norah who wants to stop smoking as well. You can help each other get through the rough times. A = Anticipate and plan for the challenges you'll face while quitting. Most people who begin smoking again do so within the first 3 months. You can help yourself make it through by preparing ahead for common challenges, such as nicotine withdrawal and cigarette cravings. R = Remove cigarettes and other tobacco products from your home, car, and work. Throw away all your cigarettes (no emergency pack!), lighters, ashtrays, and matches. Wash your clothes and freshen up anything that smells like smoke. Shampoo your car, clean your drapes and carpet, and steam your furniture. T = Talk to your doctor about getting help to quit. Your doctor can prescribe medication to help with withdrawal and suggest other alternatives. If you can't see a doctor, you can get many products over the counter at your local pharmacy or grocery store, including the nicotine patch, nicotine lozenges, and nicotine gum. Resources for Quitting Smoking: <https://www.[place].gov/documents/mdc h/Quit_Tobacco_Resources_for_patients_313480_7.pdf> Supplementation: Take recommended dosages of Vitamin D and Calcium to help fortify your bones and help them to heal. See your health maintenance packet for dosages and recommended levels. DVT/VTE prophylaxis: You will be given compression stockings from the hospital. Wear these daily for the first two weeks after surgery. You may take them off at night. You may be prescribed a medication to help thin your blood. Take this as directed. If you are not prescribed this medication, early and frequent ambulation has been shown to be the best prophylaxis to deep vein thrombosis and sequelae related to this event. Discharge Disposition: HOME SELF-CARE
--- NOTE | 2024-06-14 12:00 | P.PN ---
Subjective Progress Note Date: 06/14/24 Principal diagnosis: History of Lumbar stenosis; herniated nucleus pulposus, lumbar; Lumbar back pain with radiculopathy affecting left lower extremity; Intractable back pain; histo ry of recent L5-S1 left laminoforaminotomy with microdiscectomy Patient was seen at bedside this morning lying in the semirecumbent position with dressing present over lumbar spine. Patient says she did discuss findings from surgery with Dr. Silverman yesterday morning and about potential further treatment options. Patient says she would like to think over these options at this time. patient says she is looking forward to going home today. Patient says she is still having numbness and tingling in the legs at this time. Patient denies any other orthopedic complaints. Objective - Vital Signs Vital signs: Vital Signs Temp 98.1 F 06/14/24 06:48 Pulse 86 06/14/24 09:07 Resp 18 06/14/24 06:48 BP 100/57 06/14/24 06:48 Pulse Ox 93 L 06/14/24 06:48 FiO2 Intake & Output 06/13/24 06/14/24 06/14/24 18:59 06:59 18:59 Intake Total 400 Output Total 2000 Balance -1600 Intake: Oral 400 Output: Urine 2000 Other: Voiding Method Indwelling Catheter Toilet # Voids 3 2 - Exam Inspection: Patient lying in the semirecumbent position. Negative for any open fractures, significant erythema/ecchymosis/open wounds. Dressing change at bedside this morning. Dressing appears to be clean, dry, intact over lumbar sp ine. Sensation: Somewhat altered/diminished in the left calf. Equal, symmetric, by intact throughout the rest of the upper and lower extremities on exam. Palpation: Significant tenderness to patient over the lower lumbar spine at midline and over the left SI joint. Nontender to palpation throughout rest of exam. Range of motion: Patient has full range of motion throughout bilateral upper ext remities and right lower extremity on exam. Patient does have limited range of motion in left hip flexion/extension on exam secondary to referred pain/stiffness to the low back. Patient does have limited range of motion in dorsi/plantarflexion of the left ankle as well as EHL/FHL. Patient is able to flex left knee to about 135 degrees and lacks about 3 degrees full extension Motor: 3+/5 in EHL/FHL on the left lower extremity. 4-/5 in left ankle and dorsi/plantarflexion. 4-/5 in resisted left hip flexion to extension. 4/5 in resisted left knee flexion-extension. 4+/5 in all other major motor groups. Neurovascular: Radial pulse intact, 2+ bilaterally. Cap refill under 3 seconds in digits of upper and lower extremities. DP pulses palpable bilaterally. Special test: Negative Homans bilaterally. Negative clonus bilaterally. Negative Shashank bilaterally. Positive straight leg raise test on the left lower extremit - Labs CBC & Chem 7: 06/13/24 04:29 06/13/24 04:29 Assessment and Plan Assessment: History of Lumbar stenosis; herniated nucleus pulposus, lumbar; Lumbar back pain with radiculopathy affecting left lower extremity; Intractable back pain; history of recent L5-S1 left laminoforaminotomy with microdiscectomy -Postop day 2 status post: 1. REEXPLORATION L5-S1 LEFT LAMINOFORAMINOTOMY WITH FACETECTOMY AND MICRODISCECOMTY, DECOMPRESSION 2. L5-S1 OPEN TREATMENT PARS FRACTURE 3. L5-S1 NONSEGMENTAL INSTRUMENTATION Plan: 1. History of Lumbar stenosis; herniated nucleus pulposus, lumbar; Lumbar back pain with radiculopathy affecting left lower extremity; Intractable back pain; history of recent L5-S1 left laminoforaminotomy with microdiscectomy -surgery p erformed 06/12/2024 REEXPLORATION L5-S1 LEFT LAMINOFORAMINOTOMY WITH FACETECTOMY AND MICRODISCECOMTY, DECOMPRESSION; L5-S1 OPEN TREATMENT PARS FRACTURE; L5-S1 NONSEGMENTAL INSTRUMENTATION. Patient stable bedside this morning on 4 S. dressing change at bedside today. Incision appears to be healing well. Negative for any active drainage. Pain medication as needed. Patient may weight-bear as tolerated with walker and assistance. Discharge home today 2. Appreciate medical management 3. Pain management -[place]; Flexeril; gabapentin 4. DVT prophylaxis - mechanical 5. GI prophylaxis -MiraLAX 6. PT/OT -weightbearing as tolerated with walker and assistance as needed 7. Encourage incentive spirometer use 8. Discharge planning -discharge home today Time with Patient: Less than 30
--- NOTE | 2024-06-15 04:27 | PN ---
PROGRESS NOTE SUBJECTIVE: A 44-year-old white female, status post lumbar revision L5 surgery. The patient's leg appears to be improved with less redness and swelling and less neuropathy. OBJECTIVE: VITAL SIGNS: 93% on room air, blood pressure 100/57, temp 98.1, pulse 80s to 60s, respiratory rate 16. CARDIOVASCULAR: S1, S2. The patient possibly is going to go home today. Pain medicine has been ordered. She wants a Valium prescription, which I will give her prior to going home. I am not sure what she is getting here. She says Valium works better than anything else. She is on 10 mg p.o. b.i.d. PROGNOSIS: Guarded. PLAN: Ambulates as tolerated. Follow up outpatient. Nicotine cessation. Continue outpatient inhalers. MMODL / IJN: [id number] /
== END 2024-06-14 13:00 | disposition home or self-care (01) ==
LOC: EC 17:21 → 4SSUR 20:18
PROVIDERS: ADMIT Orthopaedic Surgery; ATTEND Orthopaedic Surgery
DX: M51.16 Intervertebral disc disorders with radiculopathy, lumbar region (principal); M43.07 Spondylolysis, lumbosacral region; M48.061 Spinal stenosis, lumbar region without neurogenic claudication; F17.200 Nicotine dependence, unspecified, uncomplicated; Z79.899 Other long term (current) drug therapy
CPT/HCPCS: 63042; 22840; 96376 ×6; 96365; 96375 ×2; 99284; 94640 ×6; 93005; 97161; 86900; 86901; 80053; 80048 ×2; 85025 ×3; 85610 ×2; 85730; 86850; 81003; 72100; 72131 ×2; G0378 ×5; C1713; J2250; J0330; J1171 ×8; J1100 ×4; J2710; J0690 ×2; J2405; J2003; J3010; J0131 ×2; J1885; J2704; J0665; J1596; J1010

== ENCOUNTER → 2025-02-03 | Outpatient (CLI) | payer BC | END | disposition home or self-care (01) | LOC: LABPAT 16:26 | PROVIDERS: ATTEND Orthopaedic Surgery | DX: Z01.812 Encounter for preprocedural laboratory examination (principal); M54.16 Radiculopathy, lumbar region; M96.1 Postlaminectomy syndrome, not elsewhere classified; Z22.322 Carrier or suspected carrier of Methicillin resistant Staphylococcus aureus | CPT/HCPCS: 86850; 86900; 86901; 87070 ==

== ENCOUNTER 2025-02-11 10:20 | Inpatient (IN) | payer BC ==
--- NOTE | 2025-02-11 07:41 | P.HPOR ---
History of Present Illness H&P Date: 02/05/25 .D:Date: 01/06/25 : 08:46am .T:Title: FOLLOW UP LUMBAR SURGICAL PLAN: REVISION L4-S1 POSTEROLATERAL AND INTERBODY FUSION WITH DECOMPRESSION Clinical Summary Edith Stern presented for a follow-up visit regarding her L5-S1 laminectomy stabilization surgery performed on 06/12/24. She reports persistent pain across the lumbar spine, down the left side, and into the feet, which has worsened si nce the surgery. Her VAS pain score is 7. She has been taking Novelty and Lyrica for pain management. Edith has completed 1.5 months of physical therapy, which exacerbated her symptoms, and she has not pursued chiropractic, massage, or injection therapies. She performs home exercises and reports that ice provides some relief. Her recent MRI shows good decompression with no further disc collapse, but the joints at L4-5 are notably inflamed. Options discussed include completing the fusion surgery or pursuing a less invasive procedure involving a nerve block and potential nerve ablation. Edith expressed a desire to proceed with the fusion to regain normalcy in her life. Chief Complaint Follow-up on L5-S1 laminectomy stabilization surgery. History Pt presents today for follow up regarding their L5-S1 laminectomy stabilization surgery. Patient denies any f/c/sob/cp, perineal numbness and tingling, bowel or bladder incontinence/retention. The patients' past social, medical, family, surgical history, as well as review of systems, have been reviewed. Please refer to the Neurosurgery History and Physical form that has been scanned in to our electronic medical record system. 16 points review of systems completed and as stated in HPI, all other systems reviewed are negative. Patient has cut her smoking down to near nothing and has comitted to 6 weeks pre op and 3 months post op of no smoking. Physical Exam On examination today, the patient is alert and oriented times three, in no acute distress, appearing well nourished and well hydrated with overall alignment well maintained. Functionally, the patient demonstrates independent bqc-ci-jldpe transition in less than 5 seconds and ambulates without assistive devices. Surgical Incision: Not provided. TTP: Not provided. Musculoskeletal examination reveals full range of motion in all major joints without restriction or pain. 5/5 strength in all major muscle groups of bilateral upper extremities. 4/5 strength in all major muscle groups of the bilateral lower extremities. Neurologically, sensation is intact to light touch throughout C3-T1 and L2-S1 dermatomes, with 2/4 reflexes in bilateral upper and lower extremities. Cantu's, clonus, Babinski, and Wally's signs are all negative, with no tensioning signs present. Cranial nerves II-XII are grossly intact. Vascular examination demonstrates 2/4 distal pulses in all four extremities without edema, and compartments are soft and compressible. The abdomen is soft and non- tender to palpation, with normal, non-labored respirations noted. Imaging MRI on 12/29/24 of the lumbar spine reviewed, this shows good decompression at L5-S1 with sevre disc collapse with progressive changes at L5-S1 and L4-5 with ASD and severe disc collapse at L4-5 as well with foraminal stenosis that is moderate to severe at L4-5. There is also new herniation on the opposite foraminal side at L5-S1 causing foraminal stenosis that is moderate and causing nerve root impingment as well as lateral recess stenosis at these levels. There is modic changes associated as well. No fractures noted. No lesions. Assessment 1. L5-S1 DDD s/p L5-S1 laminoforaminotomy with pars fracture and subequent stabilization with severe spondylosis and new foraminal stenosis with collapse 2. L4-5 spondylosis, with grade I unstable spondylolisthesis, severe with stenosis, severe and radiculopathy 3. LE weakness with radiculopathy 4. Low back pain 5. LE paresthesias Plan - Discussed surgical options including completing the fusion at L4-S1. -SURGICAL RECOMMENDATION: L4-S1 POSTEROLATERAL AND INTERBODY FUSION REVISION WITH REVISION DECOMPRESSION - Consider nerve block and potential nerve ablation if opting for less invasive procedure. - Prescribed antibiotics for upcoming dental appointment. - Recommended continuation of home exercises and use of ice for pain management. - Advised to discuss medical leave with employer for post-surgical recovery. Medical Necessity, Surgical Rational, and Risks Review Medical Necessity Statement: Edith Stern presents with persistent and progressive pain across the lumbar spine radiating down the left side into her feet following an L5-S1 laminectomy stabilization surgery performed on 06/12/24. Her current pain level is 7/10 on the VAS scale despite medication management with Novelty and Lyrica, and physical therapy which exacerbated her symptoms. Recent MRI imaging demonstrates severe disc collapse at L5-S1 with progressive changes, adjacent segment disease with severe disc collapse at L4-5, moderate to severe foraminal stenosis at L4-5, and a new herniation at L5-S1 causing moderate foraminal stenosis with nerve root impingement and lateral recess stenosis. These findings correlate with her clinical presentation of lower extremity weakness (4/5 strength bilaterally), radiculopathy, and paresthesias. Conservative measures have failed to provide adequate symptom relief, and her condition is significantly impacting her quality of life and daily functioning, making surgical intervention medically necessary at this time. Surgical Rationale: The recommended L4-S1 posterolateral and interbody fusion revision with revision decompression is surgically indicated based on the correlation between the patient's symptoms and structural pathology demonstrated on imaging. The procedure aims to address both the failed L5-S1 stabilization with new herniation and the adjacent segment disease at L4-5 by providing comprehensive decompression of the neural elements and long-term stabilization of the affected segments. A multi-level approach is warranted due to the severe spondylosis, disc collapse, and stenosis at both L4-5 and L5-S1 levels. The interbody fusion component will restore disc height, improve foraminal dimensions, and provide anterior column support, while the posterolateral fusion will enhance overall construct stability. This comprehensive approach offers the best probability of alleviating the patient's radicular symptoms, addressing her back pain, improv ing neurological function, and preventing further progression of degenerative changes compared to less invasive alternatives that would not adequately address the multi-level structural pathology. RisK Review Edith Post presented for a follow-up visit regarding her L5-S1 laminectomy stabilization surgery performed on 06/12/24. She reports persistent pain across the lumbar spine, down the left side, and into the feet, which has worsened since the surgery. Her VAS pain score is 7. She has been taking Novelty and Lyrica for pain management. Edith has completed 1.5 months of physical therapy, which exacerbated her symptoms, and she has not pursued chiropractic, massage, or injection therapies. She performs home exercises and reports that ice provides some relief. Her recent MRI shows good decompression with no further disc collapse, but the joints at L4-5 are notably inflamed. Options discussed include completing the fusion surgery or pursuing a less invasive procedure involving a nerve block and potential nerve ablation. dEith expressed a desire to proceed with the fusion to regain normalcy in her life. Follow Up POST OP Plan at Next Visit RECHECK Patient Education Medications Reviewed: YES In our visit today Edith Stern and I have had a chance to go over my understanding of the patient's current condition, the natural course history without intervention and various interventional options. Questions were invited and answered, and the patient wishes to proceed as outlined above. I will be sure to keep you updated after Edith Stern returns here for further follow-up. Thank you again for your referral. Please do not hesitate to contact me if you have any further questions. Signed and authenticated by: Natanael Silverman DO [facility] [address] [place] [id number] This message is confidential, intended only for the named recipient(s) and may contain information that is privileged or exempt from disclosure under applicable law. If you are not the intended recipient(s), you are notified that the dissemination, distribution or copying of this information is strictly prohibited. If you received this message in error, please notify the sender then delete this message. #Orders: Pelvis xray #Orders: Spine, Lumbar, MV Rx: amoxicillin 500 mg tablet, 6, Ref: 0, take 2 tablet (500 mg) by oral route 30 min before. # SIGNED BY Natanael Silverman ([facility])01/06/2025 08:55AM # REVISED BY Natanael Silverman ([facility])01/27/2025 02:40PM Past Medical History Past Medical History: No Reported History Additional Past Medical History / Comment(s): back pain History of Any Multi-Drug Resistant Organisms: None Reported Past Surgical History: Back Surgery, Hysterectomy, Orthopedic Surgery Additional Past Surgical History / Comment(s): bladder surgery, lft knee arthroscopy, Past Anesthesia/Blood Transfusion Reactions: No Reported Reaction Smoking Status: Former smoker - Past Family History Father Family Medical History: No Reported History Medications and Allergies Home Medications Medication Instructions Recorded Confirmed Type HYDROcodone/APAP 10-325MG [Novelty 1 tab PO Q8HR PRN 06/11/24 02/09/25 History 10-325] D-Amphetamine 20 mg PO BID 02/09/25 02/09/25 History Pregabalin [Lyrica] 200 mg PO BID 02/09/25 02/09/25 History Allergies Allergy/AdvReac Type Severity Reaction Status Date / Time No Known Allergies Allergy Verified 02/09/25 08:22 Physical Examination Osteopathic Statement: *. No significant issues noted on an osteopathic structural exam other than those noted in the History and Physical/Consult.
[~2025-02-11 10:20] MED LIST: TRANEXAMIC 1,000 MG/100ML-NACL 1,000 MG in SALINE 1 100ML.BAG IVPB PRN
[2025-02-11] MEDS: IV FLUID CONTINUATION 1,000 ML IV ONE ×4 (10:47→16:50)
[2025-02-11] MEDS: ACETAMINOPHEN TAB 500 MG TAB PO PRN (11:09)
[2025-02-11] MEDS: ONDANSETRON 4 MG/2 ML VIAL IVP PRN (11:09)
[2025-02-11] MEDS: GABAPENTIN 300 MG CAP PO PRN (11:09)
[2025-02-11] MEDS: LIDOCAINE 1% (10MG/ML) FOR IV START INTRADERMA PRN (11:09)
[2025-02-11] MEDS: MIDAZOLAM 2 MG/2 ML VIAL IV ONE (11:51)
[2025-02-11] MEDS ORDERED: NEOSTIGMINE 1 MG/ML 10 ML VIAL ONE (12:08)
[2025-02-11] MEDS ORDERED: SUCCINYLCHOLINE CHLORIDE 200 MG/10 ML VIAL IV ONE (12:08)
[2025-02-11] MEDS ORDERED: MIDAZOLAM 2 MG/2 ML VIAL ONE (12:08)
[2025-02-11] MEDS ORDERED: ROCURONIUM 10 MG/ML (5 ML VIAL) IV ONE (12:08)
[2025-02-11] MEDS ORDERED: GLYCOPYRROLATE 0.2 MG/ML 2 ML VIAL ONE (12:08)
[2025-02-11] MEDS ORDERED: KETAMINE HCL IN 0.9 % NACL 50 MG/5 ML SYRINGE ONE (12:08)
[2025-02-11] MEDS ORDERED: LIDOCAINE 1% INJ 10MG/ML (20 ML MDV) ONE (12:08)
[2025-02-11] MEDS ORDERED: PROPOFOL 10 MG/ML 20 ML VIAL IV ONE (12:08)
[2025-02-11] MEDS ORDERED: PHENYLEPHRINE-0.9% NACL SYG 1,000 MCG/10 ML SYRINGE ONE (12:08)
[2025-02-11] MEDS ORDERED: HYDROmorphone (PF) 1 MG/ML ONE (12:08)
[2025-02-11] MEDS ORDERED: TRANEXAMIC 1,000 MG/100ML-NACL PREMIX BAG ONE (12:08)
[2025-02-11] MEDS ORDERED: fentaNYL (PF) 50 MCG/ML 2 ML AMP ONE (12:08)
[2025-02-11] MEDS: ceFAZolin 3,000 MG in SODIUM CHLORIDE 0.9% IRRIGATIO 3,000 ML IRRIGATION ONE (12:41)
[2025-02-11] MEDS: GENTAMICIN 80 MG in SODIUM CHLORIDE 0.9% IRRIGATIO 3,000 ML IRRIGATION ONE (12:41)
[2025-02-11] MEDS: THROMBIN (BOVINE) 5,000 UNIT VIAL TOPICAL ONE (12:41)
[2025-02-11] MEDS: LACTATED RINGERS 1,000 ML IV ONE (14:02)
[2025-02-11] MEDS: VANCOMYCIN 1,000 MG VIAL MISCELLANE ONE (14:31)
--- NOTE | 2025-02-11 15:08 | FL ---
EXAMINATION TYPE: FL guidance operating room, XR lumbar spine 2 or 3V DATE OF EXAM: 02/11/2025 3:01 PM COMPARISON: Pre Operative Images if available both CT/MRI or plain film CLINICAL INDICATION: Female, 44 years old with history of LUMBAR FUSION; TECHNIQUE: FL guidance operating room, XR lumbar spine 2 or 3V, multiple fluoroscopic images provided for procedure. DAP: 8.8145 mGym2 Gycm2 uGym2 cGycm2 or equivalent. FINDINGS: Fluoroscopic images during internal fixation/arthroplasty demonstrate hardware in appropriate positio n. Hardware appears intact. No immediate complication identified. IMPRESSION: 1. Report was generated for administrative purposes only. 2. Please see the operative/procedural note for further details. [facility], , 02/11/2025 3:05 PM
[2025-02-11] MEDS ORDERED: MAGNESIUM HYDROXIDE 2,400 MG/30 ML CUP PO PRN (15:19)
[2025-02-11] MEDS ORDERED: ONDANSETRON 4 MG/2 ML VIAL IVP PRN (15:19)
[2025-02-11] MEDS: HYDROmorphone 0.5 MG/0.5 ML SYRINGE IVP PRN (15:44)
[2025-02-11] MEDS: MEPERIDINE 50 MG/ML SYRINGE IVP STA (16:43)
[2025-02-11] MEDS: ACETAMINOPHEN TAB 325 MG TAB PO SCH (17:50)
[2025-02-11] MEDS: CYCLOBENZAPRINE 5 MG TAB PO PRN (17:53)
--- NOTE | 2025-02-11 18:32 | P.OP ---
Date of Procedure: 02/11/25 Preoperative Diagnosis: 1. L5-S1 DDD s/p L5-S1 laminoforaminotomy with pars fracture and subequent stabilization with severe spondylosis and new foraminal stenosis with collapse 2. L4-5 spondylosis, with grade I unstable spondylolisthesis, severe with stenosis, severe and radiculopathy 3. LE weakness with radiculopathy 4. Low back pain 5. LE paresthesias Postoperative Diagnosis: 1. L5-S1 DDD s/p L5-S1 laminoforaminotomy with pars fracture and subequent stabilization with severe spondylosis and new foraminal stenosis with collapse 2. L4-5 spondylosis, with grade I unstable spondylolisthesis, severe with stenosis, severe and radiculopathy 3. LE weakness with radiculopathy 4. Low back pain 5. LE paresthesias Procedure(s) Performed: 1. L4-5 POSTEROLATERAL AND INTERBODY FUSION 2. L5-S1 POSTEROLATERAL AND INTERBODY FUSION 3. SEGMENTAL INSTRUMENTATION L4-S1 4. L4-5 AND L5-S1 LAMINECTOMY, FACETECTOMY AND FORAMINOTOMY FOR COMPLETE NEURAL DECOMPRESSION AND CAGE PLACEMENT. REVISION DONE ON L5-S1 5. PLACEMENT OF INTERBODY CAGE, X2 L4-5 AND L5-S1 6. REMOVAL OF HARDWARE L5-S1 LEFT 7. EXPLORATION OF FUSION L5-S1 8. USE OF [employer] NAVIGATION FOR SCREWS PLACEMENT USE OF IONM ALL SCREWS TESTING > 20 mA Implants: singh everest rods and screws globus sable cages 10 mm 9-17mm x2 arthrocell, allocell, contour, autograft, dbm boats Anesthesia: GETA Surgeon: Natanael Silverman Service Desk Specialist #1: Domenico Bonilla (WAS PRESENT AND ASSISTED WITH ALL ASPECTSS OF THE CASE FROM POSITION TO DRESSING PLACEMENT) Estimated Blood Loss (ml): 400 IV fluids (ml): 1,200 Urine output (ml): 350 Pathology: none sent Condition: stable Disposition: PACU Indications for Procedure: Edith Post presented for a follow-up visit regarding her L5-S1 laminectomy stabilization surgery performed on 06/12/24. She reports persistent pain across the lumbar spine, down the left side, and into the feet, which has worsened since the surgery. Her VAS pain score is 7. She has been taking [place] and Lyrica for pain management. Edith has completed 1.5 months of physical therapy, which exacerbated her symptoms, and she has not pursued chiropractic, massage, or injection therapies. She performs home exercises and reports that ice provides some relief. Her recent MRI shows good decompression with no further disc collapse, but the joints at L4-5 are notably inflamed. Options discussed include completing the fusion surgery or pursuing a less invasive procedure involving a nerve block and potential nerve ablation. Edith expressed a desire to proceed with the fusion to regain normalcy in her life. Chief Complaint Follow-up on L5-S1 laminectomy stabilization surgery. History Pt presents today for follow up regarding their L5-S1 laminectomy stabilization surgery. Patient denies any f/c/sob/cp, perineal numbness and tingling, bowel or bladder incontinence/retention. The patients' past social, medical, family, surgical history, as well as review of systems, have been reviewed. Please refer to the Neurosurgery History and Physical form that has been scanned in to our electronic medical record system. 16 points review of systems completed and as stated in HPI, all other systems reviewed are negative. Patient has cut her smoking down to near nothing and has comitted to 6 weeks pre op and 3 months post op of no smoking. Physical Exam On examination today, the patient is alert and oriented times three, in no acute distress, appearing well nourished and well hydrated with overall alignment well maintained. Functionally, the patient demonstrates independent [id number] transition in less than 5 seconds and ambulates without assistive devices. Surgical Incision: Not provided. TTP: Not provided. Musculoskeletal examination reveals full range of motion in all major joints without restriction or pain. 5/5 strength in all major muscle groups of bilateral upper extremities. 4/5 strength in all major muscle groups of the bilateral lower extremities. Neurologically, sensation is intact to light touch throughout C3-T1 and L2-S1 dermatomes, with 2/4 reflexes in bilateral upper and lower extremities. Cantu's, clonus, Babinski, and Wally's signs are all negative, with no tensioning signs present. Cranial nerves II-XII are grossly intact. Vascular examination demonstrates 2/4 distal pulses in all four extremities without edema, and compartments are soft and compressible. The abdomen is soft and non- tender to palpation, with normal, non-labored respirations noted. Imaging MRI on 12/29/24 of the lumbar spine reviewed, this shows good decompression at L5-S1 with sevre disc collapse with progressive changes at L5-S1 and L4-5 with ASD and severe disc collapse at L4-5 as well with foraminal stenosis that is moderate to severe at L4-5. There is also new herniation on the opposite foraminal side at L5-S1 causing foraminal stenosis that is moderate and causing nerve root impingment as well as lateral recess stenosis at these levels. There is modic changes associated as well. No fractures noted. No lesions. Assessment 1. L5-S1 DDD s/p L5-S1 laminoforaminotomy with pars fracture and subequent stabilization with severe spondylosis and new foraminal stenosis with collapse 2. L4-5 spondylosis, with grade I unstable spondylolisthesis, severe with sten osis, severe and radiculopathy 3. LE weakness with radiculopathy 4. Low back pain 5. LE paresthesias Plan - Discussed surgical options including completing the fusion at L4-S1. -SURGICAL RECOMMENDATION: L4-S1 POSTEROLATERAL AND INTERBODY FUSION REVISION WITH REVISION DECOMPRESSION Description of Procedure: L4-S1 open Decompression and fusion (cirilo) The patient was seen and examined in the preoperative area. All preoperative protocols were followed. Informed consent was obtained, risks and benefits of the procedure were discussed at length. Risks including bleeding infection damage to the surrounding tissue and risk of reoperation were discussed with the patient. Risk of anesthesia up to and including was discussed with the patient. These are outlined in the risk review. They were willing to accept these risks and all the risks of surgery. The patient was given a weight-based dose of antibiotics in the form of 2 g Ancef. The patient was seen and evaluated by the anesthesia team who deemed them fit for surgery. The site was marked, the patient was willing to proceed with the procedure. The patient was transferred to the operative suite by the Department of anesthesia. They were then drifted off to sleep by the department anesthesia and GETA was performed. The patient tolerated this well. Hinton catheter was placed by nursing staff, a-traumatically. Once confirmation of lines and ventilation the patient was transferred to a prone Joaquim table very carefully. All bony prominences including wrists, elbows, axilla, chest, hips, and thighs, and feet were padded very well. Special attention was paid to the genitalia, and these were padded accordingly. SCDs were placed on bilateral lower extr emities and were connected. Arms were well padded and placed on arm boards up and out in the 90/90 position. Once in position, again we confirmed good ventilation capabilities and that lines were running appropriately. The patients Lumbar spine was then exposed. 1010s were placed outlining the incision site. Standard alcohol was used to clean the incision site and allowed to dry. C-arm was used to needle localize the pedicles at L4-S1 and bio-jessica the patient and confirm level for incision which was marked with a skin marker. Operative briefing was performed with all teams and everyone in agreement to proceed. The patient was then prepped and draped in a normal sterile fashion. Timeout was then performed, and all parties agreed with the procedure to be performed. Midline skin incision was made over the previously bio-marked area and dissection taken down over the SP of L3-S1. L4-S1 was taken out over facet joints and TPs and a penfield 4 used to jessica the L4 pedicle. Lateral image used to confirm levels. L5-S1 screws on the left were removed and were extremely loose. Fusion was expored here and there was no good bone formation to constitute fusion bed. We then irrigated the wound and debrided the bed. Once confirmed, screws were proceeded to be placed b/l at pedicles from L4-S1 using [employer] Navigation. An SP clamp was used, 3D C arm spin obtained and confirmed to be accurate. Once this was confirmed screws were placed using a navigated angelita, navigated awl-tap and navigated special client bus driver. Once screws were placed they were confirmed to be in good position using AP and Lateral fluoroscopy. The wound was then irrigated. Screws were tested and all tested above 20 mA. We then proceeded to decompression and cage placement. Attention was then turned to interbody fusion at L5-S1. Bilateral laminectomy, complete facetectomy and foraminotomy performed at L5-S1 using high speed angelita and Kerrison rongeur. The ligamentum was removed and the dural sac decompressed. Exiting and traversing roots visualized and decompressed. Neural elements were then protected, and disc space accessed with an osteotome. Sequential shaving then done under lateral imaging and complete discectomy performed using jerry, pituitary and curette. Once good bleeding endplates accomplished and good height rastafarian with trials, a combination of autograft, allograft and synthetic placed anterior in the disc space. The cage was then selected and impacted into place under lateral imaging. The cage was then expanded restoring height, lordosis and alignment. The cage was backfilled with bone graft through a funnel. The inserter promotional item was removed and the area inspected. Good cage placement, stable cage and no injuries. Area was irrigated copiously, and meticulous hemostasis achieved. Attention was then turned to interbody fusion at L4-5. Bilateral laminectomy, complete facetectomy and foraminotomy performed at L4-5 using high speed angelita and Kerrison rongeur. The ligamentum was removed and the dural sac decompressed. Exiting and traversing roots visualized and decompressed. Neural elements were then protected, and disc space accessed with an osteotome. Sequential shaving then done under lateral imaging and complete discectomy performed using jerry, pituitary and curette. Once good bleeding endplates accomplished and good height rastafarian with trials, a combination of autograft, allograft and synthetic placed anterior in the disc space. The cage was then selected and impacted into place under lateral imaging. The cage was then expanded restoring height, lordosis and alignment. The cage was backfilled with bone graft through a funnel. The inserter promotional item was removed and the area inspected. Good cage placement, stable cage and no injuries. Area was irrigat ed copiously, and meticulous hemostasis achieved. The wound and disc spaces were irrigated and meticulous hemostasis achieved. Rods were then sized and selected and placed into S1 screws b/l. Set screws locked these in place and then sequentially reduced into L4 and L5 b/l for alignment rastafarian. This was accomplished. Set screws were then all placed and final tightened. was selected and placed and final tightened. TPs were then decorticated with a high speed angelita. The wound was irrigated with 3L Ancef irrigation, 3L gentamicin irrigation and 3L NSS. Surgery was placed over the dura. Autograft and MagnatOs then placed in the posterolateral gutters and impacted into place. Deep drain placed and secured to the skin. Final images confirmed good placement of hardware and good reduction of listhesis as well as rastafarian of height and lordosis. Fascia was then closed with #1 PDS. Deep subq closed with 0 Vicryl. Superficial subq closed with 2-0 Vicryl and skin with henna. Wound edges approximated very well. Wound was then cleaned with alcohol and dried. Wounds dressed with Optifoam dressings. The patient was then transferred off the table back to their hospital bed a-traumatically. They were extubated by the department of anesthesia. They were then transferred to PACU in stable condition having tolerated the procedure with no complications.
[2025-02-11] MEDS: HYDROmorphone 1 MG/ML 1 ML SYRINGE IVP PRN (20:30)
[2025-02-11] MEDS: oxyCODONE-APAP 7.5-325MG 1 EACH TAB PO PRN (22:21)
[2025-02-11] MEDS: PREGABALIN 100 MG CAP PO SCH (22:21)
[2025-02-12] MEDS: HYDROcodone/APAP 10-325MG 1 EACH TAB PO PRN (01:59)
--- NOTE | 2025-02-12 07:10 | CT ---
EXAMINATION TYPE: CT lumbar spine wo con CT DLP: 204.6 mGycm, Automated exposure control for dose reduction was used. DATE OF EXAM: 02/11/2025 10:57 PM COMPARISON: Fluoroscopic images 02/11/2025, MRI lumbar spine 12/29/2024, CT lumbar spine 06/12/2024. CLINICAL INDICATION:Female, 44 years old with history of s/p L4-S1 fusion; PHH, L4-S1 FUSION, pain TECHNIQUE: Multiple axial images were obtained from the midportion of T11 through the sacroiliac joseline nts. Soft tissue and bone windows in coronal and sagittal planes were obtained and reviewed. Contrast used:None Oral contrast used: none. FINDINGS: Postsurgical changes to the lumbar spine with fixation hardware at L4, L5 and S1 with laminectomy alexis nge. Discectomy at L4-L5 and L5-S1. Hardware limits evaluation at these levels. Hardware appears inta ct. The L5 and S1 bilateral pedicle screws extend past the anterior cortex. No evidence of fracture. Minimal grade 1 anterolisthesis of L4 on L5. No gross evidence for significant spinal canal or neuro foraminal stenosis. Postsurgical changes in the soft tissues with foci of gas present. Drainage catheter with tubing in t he surgical bed. Posterior back skin henna are present. Hepatic steatosis with focal fatty sparing adjacent to gallbladder fossa. IMPRESSION: Postsurgical changes without evidence of immediate post operative complication. [facility], , 02/12/2025 7:07 AM
[2025-02-12 08:54] LABS: Basophils # (A) 0.03 X 10*3/uL (0.00-0.10); Basophils % (A) 0.4 %; Eosinophils # (A) 0.13 X 10*3/uL (0.04-0.35); Eosinophils % (A) 1.9 %; HCT 33.7 % (37.2-46.3); HGB 11.1 g/dL (12.0-15.0); Immature Grans, Automated 0.40 %; Lymphocytes # (A) 2.01 X 10*3/uL (0.90-5.00); Lymphocytes % (A) 29.3 %; MCH 30.5 pg (27.0-32.0); MCHC 32.9 g/dL (32.0-37.0); MCV 92.6 FL (80.0-97.0); Monocytes # (A) 0.60 X 10*3/uL (0.20-1.00); Monocytes % (A) 8.8 %; NRBC Per 100 WBC 0 X 10*3/uL (0.00-0.01); Neutrophils # (A) 4.05 X 10*3/uL (1.80-7.70); Neutrophils % (A) 59.2 %; Platelet Count 239 X 10*3/uL (140-440); RBC 3.64 X 10*6/uL (4.10-5.20); RDW 11.9 % (11.5-14.5); WBC 6.85 X 10*3/uL (4.50-10.00)
[2025-02-12 09:20] LABS: Anion Gap 8.20 mmol/L (4.00-12.00); BUN/Creat Ratio 10.14 Ratio (12.00-20.00); Blood Urea Nitrogen 7.1 mg/dL (9.0-27.0); Calcium 8.1 mg/dL (8.7-10.3); Carbon Dioxide 23.8 mmol/L (21.6-31.8); Chloride 106 mmol/L (96-109); Glucose 97 mg/dL (70-110); Potassium 4.3 mmol/L (3.5-5.5); Sodium 138 mmol/L (135-145)
--- NOTE | 2025-02-12 10:26 | P.PN ---
Subjective Progress Note Date: 02/12/25 Principal diagnosis: 1. L5-S1 DDD s/p L5-S1 laminoforaminotomy with pars fracture and subequent stabilization with severe spondylosis and new foraminal stenosis with collapse 2. L4-5 spondylosis, with grade I unstable spondylolisthesis, severe with stenosis, severe and radiculopathy 3. LE weakness with radiculopathy 4. Low back pain 5. LE paresthesias Patient was seen at bedside this morning sitting up in chair on 4 S. with postoperative surgical dressing in place over lumbar spine and Hinton in place. Patient says she just finished working with therapy and was only able to stand up at the edge of the bed and moved to the chair. She says she is having a lot of pain in the low back at this time. Patient does not mention any numbness or tingling down the lower extremities. Patient denies any other issues at this time Objective - Vital Signs Vital signs: Vital Signs Temp 98.1 F 02/12/25 07:06 Pulse 80 02/12/25 07:06 Resp 18 02/12/25 07:06 BP 99/64 02/12/25 07:06 Pulse Ox 95 02/12/25 07:06 FiO2 Intake & Output 02/11/25 02/12/25 02/12/25 18:59 06:59 18:59 Intake Total 2402 Output Total 900 970 Balance 1502 -970 Weight 97.1 kg 97.1 kg Intake: IV 2402 Output: Drainage 140 Back 140 Urine 500 830 Estimated Blood Loss 400 Other: Voiding Method Indwelling Catheter - Exam Postoperative surgical dressing in place over the lumbar spine. Appears to be clean, dry, intact. Negative for any active drainage. Sensation equal, symmetric, bilat intact throughout the lower extremities on exam. There is moderate tenderness to palpation throughout spine on exam near incisions. Nontender on rest of exam. Patient does have some limited range of motion in the bilateral hips in flexion/extension secondary referred pain and stiffness in the low back. Patient does have good range of motion throughout the bilateral ankles and knees. Full range of motion throughout the bilateral upper extremities on exam. 4/5 in all major motor groups in bilateral upper and lower extremities. Radial pulse intact, 2+ bilaterally. Cap refill under 3 seconds in digits of upper extremities. Negative kee bilaterally. Negative clonus bilaterally. Negative Homans bilaterally. - Labs CBC & Chem 7: 02/12/25 03:55 02/12/25 03:55 Labs: Abnormal Lab Results - Last 24 Hours (Table) 02/12/25 02/12/25 Range/Units 03:55 03:55 RBC 3.64 L (4.10-5.20) X 10*6/uL Hgb 11.1 L (12.0-15.0) g/dL Hct 33.7 L (37.2-46.3) % BUN 7.1 L (9.0-27.0) mg/dL BUN/Creatinine Ratio 10.14 L (12.00-20.00) Ratio Calcium 8.1 L (8.7-10.3) mg/dL Assessment and Plan Assessment: 1. L5-S1 DDD s/p L5-S1 laminoforaminotomy with pars fracture and subequent stabilization with severe spondylosis and new foraminal stenosis with collapse 2. L4-5 spondylosis, with grade I unstable spondylolisthesis, severe with stenosis, severe and radiculopathy 3. LE weakness with radiculopathy 4. Low back pain 5. LE paresthesias - Postop day 1 status post L4-S1 PLIF Plan: 1. L5-S1 DDD s/p L5-S1 laminoforaminotomy with pars fracture and subequent stabilization with severe spondylosis and new foraminal stenosis with collapse; L4-5 spondylosis, with grade I unstable spondylolisthesis, severe with stenosis, severe and radiculopathy; LE weakness with radiculopathy; Low back pain; LE paresthesias L4-S1 PLIF -surgery from yesterday, 02/11/2025L4-S1 PLIF. Patient stable at bedside this morning with Hinton in place and dressing in place over lumbar spine. Patient to work with PT/OT daily. Pain medication as needed. Pl an for Hinton removal tomorrow. As well as dressing change tomorrow. Discharge planning pending. 2. Medical management 3. Pain management -Percocet; Flexeril; Lyrica 4. DVT prophylaxis -mechanical 5. GI prophylaxis - senna 6. PT/OT -weightbearing as tolerated with walker and assistance as needed 7. Encourage incentive spirometer use 8. Discharge planning - pending Time with Patient: Less than 30
[2025-02-12] MEDS: SENNOSIDES-DOCUSATE SODIUM 1 EACH TAB PO PRN (14:15)
[2025-02-12] MEDS ORDERED: ALBUTEROL NEBULIZED 2.5 MG/3 ML INHALATION PRN (15:58)
[2025-02-12] MEDS ORDERED: IPRATROPIUM-ALBUTEROL 3 ML NEB INHALATION SCH (20:00)
--- NOTE | 2025-02-12 23:51 | CONS ---
CONSULTATION HISTORY OF PRESENT ILLNESS: The patient is a 44-year-old white female status post lumbar surgery. Lumbar CAT scan was done postop. The patient appears to be doing fine postoperatively. PHYSICAL EXAMINATION: VITAL SIGNS: She is saturating 95% on room air. Blood pressure 97-99/60s, temperature 98.1, pulse 80, and respiratory rate 16-18. CARDIOVASCULAR: S1, S2. LUNGS: Transmitted upper sounds. GI: Soft. HEMATOLOGY: Negative Homans. LABORATORY DATA: Show a hemoglobin is 11.1, white count 6.5. BUN is 7.1, creatinine 0.7, and calcium 8.1. ASSESSMENT AND PLAN: Status post lumbar surgery, nicotine addiction, chronic obstructive pulmonary disease. Continue current treatments. Home medications have been reordered. Prognosis guarded. Continue current treatments. Please see further orders. MMODL / IJN: [id number] /
[2025-02-13] MEDS: HYDROmorphone 0.5 MG/0.5 ML SYRINGE IVP PRN (05:40)
--- NOTE | 2025-02-13 12:52 | P.PN ---
Subjective Progress Note Date: 02/13/25 Principal diagnosis: 1. L5-S1 DDD s/p L5-S1 laminoforaminotomy with pars fracture and subequent stabilization with severe spondylosis and new foraminal stenosis with collapse 2. L4-5 spondylosis, with grade I unstable spondylolisthesis, severe with stenosis, severe and radiculopathy 3. LE weakness with radiculopathy 4. Low back pain 5. LE paresthesias Patient was seen at bedside this afternoon lying in the semi-, position with Hinton in place as well as dressing over lumbar spine and drain in place with minimal output. Patient says she is feeling better today than she was yesterday. Patient is hoping to stay overnight for additional pain control and therapy. She says she did do well with therapy this morning. She says she is not having any pain down the legs however, most of the pain she is having is located in the low back. Denies any other issues at this time. Objective - Vital Signs Vital signs: Vital Signs Temp 97.6 F 02/13/25 07:45 Pulse 85 02/13/25 07:45 Resp 16 02/13/25 07:45 BP 105/66 02/13/25 07:45 Pulse Ox 95 02/13/25 07:45 FiO2 21 02/12/25 16:00 Intake & Output 02/12/25 02/13/25 02/13/25 18:59 06:59 18:59 Output Total 980 1640 Balance -980 -1640 Output: Drainage 80 40 Back 80 40 Urine 900 1600 Uretheral (Hinton) 1600 Other: Voiding Method Indwelling Catheter Indwelling Catheter Indwelling Catheter - Exam Postoperative surgical dressing in place over the lumbar spine. Some spotting present on the dressing. Dressing was taken down at bedside. Hemovac drain was removed at bedside this morning and new dressing was placed over incision. Sensation equal, symmetric, bilat intact throughout the lower extremities on exam. There is moderate tenderness to palpation throughout spine on exam near incisions. Nontender on rest of exam. Patient does have some limited range of motion in the bilateral hips in flexion/extension secondary referred pain and stiffness in the low back. Patient does have good range of motion throughout the bilateral ankles and knees. Full range of motion throughout the bilateral upper extremities on exam. 4/5 in all major motor groups in bilateral upper and lower extremities. Radial pulse intact, 2+ bilaterally. Cap refill under 3 seconds in digits of upper extremities. Negative kee bilaterally. Negative clonus bilaterally. Negative Homans bilaterally. - Labs CBC & Chem 7: 02/12/25 03:55 02/12/25 03:55 Assessment and Plan Assessment: 1. L5-S1 DDD s/p L5-S1 laminoforaminotomy with pars fracture and subequent stabilization with severe spondylosis and new foraminal stenosis with collapse 2. L4-5 spondylosis, with grade I unstable spondylolisthesis, severe with stenosis, severe and radiculopathy 3. LE weakness with radiculopathy 4. Low back pain 5. LE paresthesias - Postop day 2 status post L4-S1 PLIF Plan: 1. L5-S1 DDD s/p L5-S1 laminoforaminotomy with pars fracture and subequent st abilization with severe spondylosis and new foraminal stenosis with collapse; L4-5 spondylosis, with grade I unstable spondylolisthesis, severe with stenosis, severe and radiculopathy; LE weakness with radiculopathy; Low back pain; LE paresthesias L4-S1 PLIF -surgery performed , 02/11/2025L4-S1 PLIF. Patient stable at bedside this morning with Hinton in place and dressing in place over lumbar spine. Patient to work with PT/OT daily. Pain medication as needed. Postop dressing taken down at bedside. Drain removed at bedside. New dressing placed over incision. Nursing to remove Hinton today. Plan for discharge home tomorrow versus Saturday. 2. Appreciate medical management 3. Pain management -Percocet; Flexeril; Lyrica 4. DVT prophylaxis -mechanical 5. GI prophylaxis - senna 6. PT/OT -weightbearing as tolerated with walker and assistance as needed 7. Encourage incentive spirometer use 8. Discharge planning -plan for discharge home tomorrow versus Saturday Time with Patient: Less than 30
--- NOTE | 2025-02-13 16:54 | PN ---
PROGRESS NOTE SUBJECTIVE: The patient has hypotension this morning. I gave her a L of fluids for hypotension. OBJECTIVE: VITAL SIGNS: Blood pressure 105/66. She is status post lumbar L5-S1 laminoforaminotomy. Lower extremity weakness with radiculopathy. Her pain is under poor control she says. CARDIOVASCULAR: S1, S2. LUNGS: Clear. GI: Soft. HEMATOLOGY: Negative Homans. LABORATORY DATA: White count 11.1. ASSESSMENT AND PLAN: Continue current treatment, PT, OT, and dressing. Discharge tomorrow versus Saturday depending on pain control. Please see further orders. MMODL / IJN: [id number] /
[2025-02-14 02:30] VITALS: RESP 16
[2025-02-14 09:59] VITALS: BP 109/69; PULSE 89; TEMP 97.7
--- NOTE | 2025-02-14 10:32 | P.PN ---
Subjective Progress Note Date: 02/14/25 Principal diagnosis: 1. L5-S1 DDD s/p L5-S1 laminoforaminotomy with pars fracture and subequent stabilization with severe spondylosis and new foraminal stenosis with collapse 2. L4-5 spondylosis, with grade I unstable spondylolisthesis, severe with stenosis, severe and radiculopathy 3. LE weakness with radiculopathy 4. Low back pain 5. LE paresthesias Patient was seen at bedside this morning lying in the chair with dressing in place over lumbar spine. Patient says her pain is under better control today. She says after robles was removed yesterday she had walked around the room several times under her own power with a walker. Patient denies any other issues at this time. She says she is looking forward to going home. Objective - Vital Signs Vital signs: Vital Signs Temp 97.7 F 02/14/25 07:28 Pulse 89 02/14/25 07:28 Resp 16 02/14/25 07:28 BP 109/69 02/14/25 07:28 Pulse Ox 95 02/14/25 07:28 FiO2 21 02/12/25 16:00 Intake & Output 02/13/25 02/14/25 02/14/25 18:59 06:59 18:59 Output Total 900 Balance -900 Output: Urine 900 Other: Voiding Method Indwelling Catheter Toilet # Voids 1 3 - Exam Dressing CDI. Sensation equal, symmetric, bilat intact throughout the lower extremities on exam. There is moderate tenderness to palpation throughout spine on exam near incisions. Nontender on rest of exam. Patient does have some limited range of motion in the bilateral hips in flexion/extension secondary referred pain and stiffness in the low back. Patient does have good range of motion throughout the bilateral ankles and knees. Full range of motion throughout the bilateral upper extremities on exam. 4/5 in all major motor groups in bilateral upper and lower extremities. Radial pulse intact, 2+ bilaterally. Cap refill under 3 seconds in digits of upper extremities. Negative kee bilaterally. Negative clonus bilaterally. Negative Homans bilaterally. - Labs CBC & Chem 7: 02/12/25 03:55 02/12/25 03:55 Assessment and Plan Assessment: 1. L5-S1 DDD s/p L5-S1 laminoforaminotomy with pars fracture and subequent stabilization with severe spondylosis and new foraminal stenosis with collapse 2. L4-5 spondylosis, with grade I unstable spondylolisthesis, severe with stenosis, severe and radiculopathy 3. LE weakness with radiculopathy 4. Low back pain 5. LE paresthesias - Postop day 3 status post L4-S1 PLIF Plan: 1. L5-S1 DDD s/p L5-S1 laminoforaminotomy with pars fracture and subequent stabilization with severe spondylosis and new foraminal stenosis with collapse; L4-5 spondylosis, with grade I unstable spondylolisthesis, severe with stenosis, severe and radiculopathy; LE weakness with radiculopathy; Low back pain; LE paresthesias L4-S1 PLIF -surgery performed , 02/11/2025L4-S1 PLIF. Patient stable at bedside this mornin. dressing in place over lumbar spine. Patient to work with PT/OT daily. Pain medication as needed. Discharge home today 2. Appreciate medical management 3. Pain management -Percocet; Flexeril; Lyrica 4. DVT prophylaxis -mechanical 5. GI prophylaxis - senna 6. PT/OT -weightbearing as tolerated with walker and assistance as needed 7. Encourage incentive spirometer use 8. Discharge planning -discharge home today Time with Patient: Less than 30
--- NOTE | 2025-02-14 10:40 | P.DS ---
Providers Date of admission: 02/11/25 10:21 Expected date of discharge: 02/14/25 Attending physician: Natanael Silverman DO Consults: 02/11/25 15:19 Consult Physician Routine Consulting Provider: Sudarshan Melton Reason/Comments: medical management s/p L4-S1 fusion Do you want consulting provider notified?: Yes Primary care physician: Sudarshan Melton [facility] Course: Date of admission: 02/11/2025 Date of discharge: 02/14/2025 Admission diagnosis: 1. L5-S1 DDD s/p L5-S1 laminoforaminotomy with pars fracture and subequent stabilization with severe spondylosis and new foraminal stenosis with collapse 2. L4-5 spondylosis, with grade I unstable spondylolisthesis, severe with stenosis, severe and radiculopathy 3. LE weakness with radiculopathy 4. Low back pain 5. LE paresthesias Discharge diagnosis: Same Attending physician: Dr. Silverman Surgical procedures: L4-S1 PLIF Brief history: Patient is a 44-year-old female with a history of L5-S1 degenerative disc disease status post L5-S1 laminal foraminotomy with pars fracture with severe spondylosis and neuroforaminal stenosis with collapse; L4-5 spondylosis with grade 1 unstable spondylolisthesis, severe stenosis and radiculopathy; low back pain and lower extremity paresthesias. At this point patient has failed conservative treatment measures and has opted to proceed with a elective L4-S1 posterior lateral instrumented fusion. Hospital course: Details of patient's surgery can be found in operative report. Patient tolerated the procedure well and was subsequently transported to orthopedic floor. Patient's orthopeidc and medical care was provided daily. Patient had daily laboratory tests performed for evaluation of overall blood counts. Patient had daily physical therapy to include strengthening range of motion as well as education with walker ambulation. Patient was noted to have a relatively uneventful postoperative course. Patient reported satisfactory pain control with oral pain medications by postoperative day 3. Patient showed satisfactory progress with physical therapy. Patient moved steadily through the program and had no difficulty meeting the goals by postoperative day 3. Given patient's otherwise satisfactory course and having met physical therapy goals, plan is to discharge patient home on postoperative day 3. Discharge condition/disposition: Patient will be discharged home in stable condition. Discharge medications: Instructions are given on resumption of patient's normal daily medications per primary care recommendation, in addition patient will be prescribed Percocet; senna; Duricef; Flexeril. Spine Discharge and Recovery Instructions Date of Surgery: 02/11/2025 Diagnosis: 1. L5-S1 DDD s/p L5-S1 laminoforaminotomy with pars fracture and subequent stabi lization with severe spondylosis and new foraminal stenosis with collapse 2. L4-5 spondylosis, with grade I unstable spondylolisthesis, severe with stenosis, severe and radiculopathy 3. LE weakness with radiculopathy 4. Low back pain 5. LE paresthesias Procedure: L4-S1 PLIF Medications: See medication list All medication refills should be obtained through your primary care doctor or your clinic spine surgeon. Please discuss prescription refills at your follow up appointment. Do not call the hospital for medication refills. Dressing: Leave your dressing in place for a total of 5 days post operatively. Then you may remove your dressing and leave open to air. Keep the area clean and if not able to keep area clean, then cover with sterile gauze and tape. Showering: You may shower 3 days after your procedure allowing soap and water to run over incision. Do not scrub. Do not soak. Blot dry. Follow up: Please confirm a follow up appointment with your surgeon 3 weeks post operatively. Please make an appointment to follow up with your PCP in 1-2 weeks after surgery for evaluation '3 phase, 3-week plan' POST OP WEEKS 1-3 1. Lifting/carrying/pushing/pulling limited to less than 5 pounds. 2. Do not sit for longer than 15 minutes at one time. Get up and walk around. Prolonged sitting is NOT advised. If you lay down, see if you can tolerate laying down on you front (belly side) 3. Walk for periods of 15 minutes = 1 mile but no longer; do it multiple times times each day. 4. Ice your low back after activity. POST OP WEEKS 3-6 1. Lifting limited to less than 20 pounds. 2. Do not sit for longer than 30 minutes at a time. Frequently change positions. Use a sit-to stand workstation or take frequent breaks from sitting if you have returned to work. 3. Walk for 30 minutes each day. If possible, do these three or more times a day POST OP WEEKS 6+ At your 6-week appointment we will give you a physical therapy referral to focus on a core stabilization and strengthening program. You should also work on leg & buttock strengthening, hamstring & quadriceps stretching, and continue a low impact aerobic activity program such as swimming, walking, or riding a stationary bicycle. During the initial 6 weeks after your surgery, you are at the highest risk of re-injuring your spine. You should generally avoid BLT's (bending, lifting and twisting combination motions) and follow the above guidelines to reduce the chance of reinjury. You can anticipate post op appointments in our office at approximately 3 weeks and 6 weeks after your surgery. INCISION CARE: If your incision is not draining you do NOT need to cover it with a dressing. Keep your incision clean, dry and intact. In most cases, we apply skin glue, henna or sutures to the incision at the time of surgery. This will be like a crust or have the appearance of a scab and will fall off in time on its own. The stitches or henna need to be removed at 3 weeks post op appointment. You may begin to shower 3 days after surgery (this allows the glue to olivas well). However, please avoid scrubbing the incision site or peeling off any of the skin glue. This will ensure optimal healing of your incision. Also, during this time avoid soaking the incision area in water - this includes swimming pools, hot tubs or baths. No ointments, lotions or oils on the incision until your surgeon allows. Leave henna, sutures or glue in place. Neurological dysfunction that comes on suddenly can also be a sign of a stroke. Below some common symptoms of a stroke are listed: B - balance difficulty such as sudden onset walking or leaning to one side - N EW E - eye problem such as sudden double vision or trouble seeing on one side - NEW F - Facial weakness or numbness on one side - NEW A - Arm or leg weakness or numbness on one side - NEW S - Slurred speech or difficulty with word finding - NEW T - Time is BRAIN! Call 911 as soon as you recognize these symptoms Diet: Consume a regular diet rich in vegetables and lean protein such as chicken or fish. You should consume in a ratio of approximately 20% fats|40% carbohydrates|40%protein. Vegetables, sweet potatoes, brown rice or quinoa are examples of good carbohydrates. Chips, white bread, cookies and sweets/sugar are examples of bad carbohydrates. Limit your bad carbs, go wild with good carbs. "Life's Simple 7" Guidelines as per [place] [employer] These will help you reclaim your life after surgery and leaf conditioner helper in your recovery, keeping in mind your restrictions. (1) Get Active. Physical activity can help people lose weight, control high blood pressure and cholesterol, feel emotionally better, and sleep better. (2) Control Cholesterol. Avoid a diet high in saturated fat, trans fat, & cholesterol. Limit whole milk & cream, ice cream, butter, egg yolks, processed meats (like sausage and hot dogs), and fatty meats. Choose healthy foods that are low in saturated fat, trans fat and cholesterol which include: Fruits and vegetables, fiber rich grain products (like whole grain pasta and brown rice), lean meat such as chicken, fish, nuts, seeds, and legumes. (3) Eat Better. Eat small portions. Shop at the grocery with a list and do not stray from it. Tips for a healthy diet include: Limit sodium intake to less than 1500mg daily, avoid prepackaged, processed, and fast foods, choose a diet rich in fruits, vegetables, and whole grain, high fiber foods, and limit saturated & cholesterol in your diet. (4) Manage Blood Pressure. If you have high blood pressure, you should have a cuff at home so that you can check your blood pressure regularly. Be sure you have a good cuff. An arm one is generally better than a wrist one. Bring the cuff to a doctor's appointment to validate that the measurements that your cuff are taking are accurate. Take your blood pressure twice daily when you are sitting down and relaxing. Record the numbers in a log and bring this log with you to your doctors' appointments. (5) Lose Weight if your BMI is above 25. A healthy BMI is between 19-25. To calculate Your BMI, you may use a Standard BMI Calculator on the NIH BMI website: <www.nhlbi.nih.gov/guidelines/obesity/BMI/bmicalc.htm>. Weigh oneself daily. If you are overweight, set a goal to lose weight. A pound a week loss if needed is a good target. (6) Reduce Blood Sugar. Limit foods and liquids with "added sugars." (Added sugars include sucrose, fructose, glucose, maltose, dextrose, high fructose corn syrup, corn syrup, concentrated fruit juice and honey). (7) Stop Smoking. If you smoke, quitting smoking is one of the best things that you can do for your health. Smoking increases your risk of heart attack, stroke, and peripheral vascular disease, which is a build-up of plaque in your arteries. Please discard all the cigarettes and lighters in your house. Have a plan for what you will do when you have the urge to smoke. Direct and second- hand smoke shortens your life as well as the lives of your family, friends and others around you. For your health and the health of those around you, please consider quitting! Proper Bending Body Mechanics: Maintain a wide stance with one foot slightly in front of the other. Keep your back straight. Bend utilizing the strength in your hips and knees. Do not bend at the waist. Maintain the lifted object at your waist-level close to your body. Avoid lifting weight that causes immediately pain or pain anywhere in the body afterwards. Smoking/Nicotine If there was ever one thing that you could do to increase your overall health, decrease your risk of cardiovascular problems by about 39% the second you make the choice, it is to STOP SMOKING. Your body's most instant gratification is the second you stop smoking. We have all heard the studies, read the articles but it is true, smoking is extremely bad for your overall health, and moreover it is detrimental to your bone health. Nicotine, IN ANY FORM, kills bone cells, prevents your body from healing fractures, and significantly prolongs healing after surgery. In spine surgery specifically, it increases your risk of not healing your bones to create a fusion and increases your risk of having a revision surgery due to this up to 60%. I know it is hard. I know it feels impossible. But there are ways. Take control of your life. We are here to help you through it. And when you are ready, ask us and we can direct you to help if you desire. Use the START Plan to Quit Smoking (please visit the Helpguide.org website listed below for more information): S = Set a quit date. Choose a date within the next 2 weeks, so you have enough time to prepare without losing your motivation to quit. If you mainly smoke at work, quit on the weekend, so you have a few days to adjust to the change. T = Tell family, friends, and co-workers that you plan to quit. Let your friends and family in on your plan to quit smoking and tell them you need their support and encouragement to stop. Look for a quit norah who wants to stop smoking as well. You can help each other get through the rough times. A = Anticipate and plan for the challenges you'll face while quitting. Most people who begin smoking again do so within the first 3 months. You can help yourself make it through by preparing ahead for common challenges, such as nicotine withdrawal and cigarette cravings. R = Remove cigarettes and other tobacco products from your home, car, and work. Throw away all your cigarettes (no emergency pack!), lighters, ashtrays, and matches. Wash your clothes and freshen up anything that smells like smoke. Shampoo your car, clean your drapes and carpet, and steam your furniture. T = Talk to your doctor about getting help to quit. Your doctor can prescribe medication to help with withdrawal and suggest other alternatives. If you can't see a doctor, you can get many products over the counter at your local pharmacy or grocery store, including the nicotine patch, nicotine lozenges, and nicotine gum. Resources for Quitting Smoking: <https://www.[facility].gov/documents/[facility]/Quit_Tobacco_Resources_for_patients_313480_7.pdf> Supplementation: Take recommended dosages of Vitamin D and Calcium to help fortify your bones and help them to heal. See your health maintenance packet for dosages and recommended levels. DVT/VTE prophylaxis: You will be given compression stockings from the hospital. Wear these daily for the first two weeks after surgery. You may take them off at night. You may be prescribed a medication to help thin your blood. Take this as directed. If you are not prescribed this medication, early and frequent ambulation has been shown to be the best prophylaxis to deep vein thrombosis and sequelae related to this event. Assessment: 1. L5-S1 DDD s/p L5-S1 laminoforaminotomy with pars fracture and subequent stabilization with severe spondylosis and new foraminal stenosis with collapse 2. L4-5 spondylosis, with grade I unstable spondylolisthesis, severe with stenosis, severe and radiculopathy 3. LE weakness with radiculopathy 4. Low back pain 5. LE paresthesias Procedures: L4-S1 PLIF Patient Condition at Discharge: Good Plan - Discharge Summary Discharge Rx Participant: Yes New Discharge Prescriptions: New cefaDROXiL [Duricef] 500 mg PO Q12HR 5 Days #10 cap oxyCODONE HCL/ACETAMINOPHEN [Percocet 7.5-325 mg] 1 tab PO Q6HR PRN #28 tab PRN Reason: Pain Sennosides/Docusate Sodium [Senna Plus 8.6-50 mg Softgel] 1 each PO DAILY #20 capsule Continue Pregabalin [Lyrica] 200 mg PO BID Discontinued HYDROcodone/APAP 10-325MG [[place] 10-325] 1 tab PO Q8HR PRN PRN Reason: Pain No Action D-Amphetamine 20 mg PO BID Discharge Medication List D-Amphetamine 20 mg PO BID 02/09/25 [History] Pregabalin [Lyrica] 200 mg PO BID 02/09/25 [History] Sennosides/Docusate Sodium [Senna Plus 8.6-50 mg Softgel] 1 each PO DAILY #20 capsule 02/14/25 [Rx] cefaDROXiL [Duricef] 500 mg PO Q12HR 5 Days #10 cap 02/14/25 [Rx] oxyCODONE HCL/ACETAMINOPHEN [Percocet 7.5-325 mg] 1 tab PO Q6HR PRN #28 tab 02/14/25 [Rx] Follow up Appointment(s)/Referral(s): Natanael Silverman DO [Doctor of Osteopathic Medicine] - 2 Weeks Activity/Diet/Wound Care/Special Instructions: Spine Discharge and Recovery Instructions Date of Surgery: 02/11/2025 Diagnosis: 1. L5-S1 DDD s/p L5-S1 laminoforaminotomy with pars fracture and subequent stabilization with severe spondylosis and new foraminal stenosis with collapse 2. L4-5 spondylosis, with grade I unstable spondylolisthesis, severe with stenosis, severe and radiculopathy 3. LE weakness with radiculopathy 4. Low back pain 5. LE paresthesias Procedure: L4-S1 PLIF Medications: See medication list All medication refills should be obtained through your primary care doctor or your clinic spine surgeon. Please discuss prescription refills at your follow up appointment. Do not call the hospital for medication refills. Dressing: Leave your dressing in place for a total of 5 days post operatively. Then you may remove your dressing and leave open to air. Keep the area clean and if not able to keep area clean, then cover with sterile gauze and tape. Showering: You may shower 3 days after your procedure allowing soap and water to run over incision. Do not scrub. Do not soak. Blot dry. Follow up: Please confirm a follow up appointment with your surgeon 3 weeks post operatively. Please make an appointment to follow up with your PCP in 1-2 weeks after surgery for evaluation '3 phase, 3-week plan' POST OP WEEKS 1-3 1. Lifting/carrying/pushing/pulling limited to less than 5 pounds. 2. Do not sit for longer than 15 minutes at one time. Get up and walk around. Prolonged sitting is NOT advised. If you lay down, see if you can tolerate laying down on you front (belly side) 3. Walk for periods of 15 minutes = 1 mile but no longer; do it multiple times times each day. 4. Ice your low back after activity. POST OP WEEKS 3-6 1. Lifting limited to less than 20 pounds. 2. Do not sit for longer than 30 minutes at a time. Frequently change positions. Use a sit-to stand workstation or take frequent breaks from sitting if you have returned to work. 3. Walk for 30 minutes each day. If possible, do these three or more times a day POST OP WEEKS 6+ At your 6-week appointment we will give you a physical therapy referral to focus on a core stabilization and strengthening program. You should also work on leg & buttock strengthening, hamstring & quadriceps stretching, and continue a low impact aerobic activity program such as swimming, walking, or riding a stationary bicycle. During the initial 6 weeks after your surgery, you are at the highest risk of re-injuring your spine. You should generally avoid BLT's (bending, lifting and twisting combination motions) and follow the above guidelines to reduce the ch ance of reinjury. You can anticipate post op appointments in our office at approximately 3 weeks and 6 weeks after your surgery. INCISION CARE: If your incision is not draining you do NOT need to cover it with a dressing. Keep your incision clean, dry and intact. In most cases, we apply skin glue, henna or sutures to the incision at the time of surgery. This will be like a crust or have the appearance of a scab and will fall off in time on its own. The stitches or henna need to be removed at 3 weeks post op appointment. You may begin to shower 3 days after surgery (this allows the glue to olivas well). However, please avoid scrubbing the incision site or peeling off any of the skin glue. This will ensure optimal healing of your incision. Also, during this time avoid soaking the incision area in water - this includes swimming pools, hot tubs or baths. No ointments, lotions or oils on the incision until your surgeon allows. Leave henna, sutures or glue in place. Neurological dysfunction that comes on suddenly can also be a sign of a stroke. Below some common symptoms of a stroke are listed: B - balance difficulty such as sudden onset walking or leaning to one side - NEW E - eye problem such as sudden double vision or trouble seeing on one side - NEW F - Facial weakness or numbness on one side - NEW A - Arm or leg weakness or numbness on one side - NEW S - Slurred speech or difficulty with word finding - NEW T - Time is BRAIN! Call 911 as soon as you recognize these symptoms Diet: Consume a regular diet rich in vegetables and lean protein such as chicken or fish. You should consume in a ratio of approximately 20% fats|40% carbohydrates|40%protein. Vegetables, sweet potatoes, brown rice or quinoa are examples of good carbohydrates. Chips, white bread, cookies and sweets/sugar are examples of bad carbohydrates. Limit your bad carbs, go wild with good carbs. "Life's Simple 7" Guidelines as per [place] [employer] These will help you reclaim your life after surgery and leaf conditioner helper in your recovery, keeping in mind your restrictions. (1) Get Active. Physical activity can help people lose weight, control high blood pressure and cholesterol, feel emotionally better, and sleep better. (2) Control Cholesterol. Avoid a diet high in saturated fat, trans fat, & cholesterol. Limit whole milk & cream, ice cream, butter, egg yolks, processed meats (like sausage and hot dogs), and fatty meats. Choose healthy foods that are low in saturated fat, trans fat and cholesterol which include: Fruits and vegetables, fiber rich grain products (like whole grain pasta and brown rice), lean meat such as chicken, fish, nuts, seeds, and legumes. (3) Eat Better. Eat small portions. Shop at the grocery with a list and do not stray from it. Tips for a healthy diet include: Limit sodium intake to less than 1500mg daily, avoid prepackaged, processed, and fast foods, choose a diet rich in fruits, vegetables, and whole grain, high fiber foods, and limit saturated & cholesterol in your diet. (4) Manage Blood Pressure. If you have high blood pressure, you should have a cuff at home so that you can check your blood pressure regularly. Be sure you have a good cuff. An arm one is generally better than a wrist one. Bring the cuff to a doctor's appointment to validate that the measurements that your cuff are taking are accurate. Take your blood pressure twice daily when you are sitting down and relaxing. Record the numbers in a log and bring this log with you to your doctors' appointments. (5) Lose Weight if your BMI is above 25. A healthy BMI is between 19-25. To calculate Your BMI, you may use a Standard BMI Calculator on the NIH BMI website: <www.nhlbi.nih.gov/guidelines/obesity/BMI/bmicalc.htm>. Weigh oneself daily. If you are overweight, set a goal to lose weight. A pound a week loss if needed is a good target. (6) Reduce Blood Sugar. Limit foods and liquids with "added sugars." (Added sugars include sucrose, fructose, glucose, maltose, dextrose, high fructose corn syrup, corn syrup, concentrated fruit juice and honey). (7) Stop Smoking. If you smoke, quitting smoking is one of the best things that you can do for your health. Smoking increases your risk of heart attack, stroke, and peripheral vascular disease, which is a build-up of plaque in your arteries. Please discard all the cigarettes and lighters in your house. Have a plan for what you will do when you have the urge to smoke. Direct and second- hand smoke shortens your life as well as the lives of your family, friends and others around you. For your health and the health of those around you, please consider quitting! Proper Bending Body Mechanics: Maintain a wide stance with one foot slightly in front of the other. Keep your back straight. Bend utilizing the strength in your hips and knees. Do not bend at the waist. Maintain the lifted object at your waist-level close to your body. Avoid lifting weight that causes immediately pain or pain anywhere in the body afterwards. Smoking/Nicotine If there was ever one thing that you could do to increase your overall health, decrease your risk of cardiovascular problems by about 39% the second you make the choice, it is to STOP SMOKING. Your body's most instant gratification is the second you stop smoking. We have all heard the studies, read the articles but it is true, smoking is extremely bad for your overall health, and moreover it is detrimental to your bone health. Nicotine, IN ANY FORM, kills bone cells, prevents your body from healing fractures, and significantly prolongs healing after surgery. In spine surgery specifically, it increases your risk of not healing your bones to create a fusion and increases your risk of having a revision surgery due to this up to 60%. I know it is hard. I know it feels impossible. But there are ways. Take control of your life. We are here to help you through it. And when you are ready, ask us and we can direct you to help if you desire. Use the START Plan to Quit Smoking (please visit the Helpguide.org website listed below for more information): S = Set a quit date. Choose a date within the next 2 weeks, so you have enough time to prepare without losing your motivation to quit. If you mainly smoke at work, quit on the weekend, so you have a few days to adjust to the change. T = Tell family, friends, and co-workers that you plan to quit. Let your friends and family in on your plan to quit smoking and tell them you need their support and encouragement to stop. Look for a quit norah who wants to stop smoking as well. You can help each other get through the rough times. A = Anticipate and plan for the challenges you'll face while quitting. Most people who begin smoking again do so within the first 3 months. You can help yourself make it through by preparing ahead for common challenges, such as nicotine withdrawal and cigarette cravings. R = Remove cigarettes and other tobacco products from your home, car, and work. Throw away all your cigarettes (no emergency pack!), lighters, ashtrays, and matches. Wash your clothes and freshen up anything that smells like smoke. Shampoo your car, clean your drapes and carpet, and steam your furniture. T = Talk to your doctor about getting help to quit. Your doctor can prescribe medication to help with withdrawal and suggest other alternatives. If you can't see a doctor, you can get many products over the counter at your local pharmacy or grocery store, including the nicotine patch, nicotine lozenges, and nicotine gum. Resources for Quitting Smoking: <https://www.[place].gov/documents/[facility]/Quit_Tobacco_Resources_for_patients_313 480_7.pdf> Supplementation: Take recommended dosages of Vitamin D and Calcium to help fortify your bones and help them to heal. See your health maintenance packet for dosages and recommended levels. DVT/VTE prophylaxis: You will be given compression stockings from the hospital. Wear these daily for the first two weeks after surgery. You may take them off at night. You may be prescribed a medication to help thin your blood. Take this as directed. If you are not prescribed this medication, early and frequent ambulation has been shown to be the best prophylaxis to deep vein thrombosis and sequelae related to this event. Discharge Disposition: HOME SELF-CARE
== END 2025-02-14 11:50 | disposition home or self-care (01) | DRG 427 ==
LOC: OR 10:20 → 4SSUR 10:21 → OR 10:21 → EDSTATUS 12:00 → 4SSUR 15:07
PROVIDERS: ADMIT Orthopaedic Surgery; ATTEND Orthopaedic Surgery
PROC: 0SG0071 Fusion of Lumbar Vertebral Joint with Autologous Tissue Substitute, Posterior Approach, Posterior Column, Open Approach (ICD-10-PCS; 2025-02-11)
PROC: 0SG30AJ Fusion of Lumbosacral Joint with Interbody Fusion Device, Posterior Approach, Anterior Column, Open Approach (ICD-10-PCS; 2025-02-11)
PROC: 0SG3071 Fusion of Lumbosacral Joint with Autologous Tissue Substitute, Posterior Approach, Posterior Column, Open Approach (ICD-10-PCS; 2025-02-11)
PROC: 0ST20ZZ Resection of Lumbar Vertebral Disc, Open Approach (ICD-10-PCS; 2025-02-11)
PROC: 01NB0ZZ Release Lumbar Nerve, Open Approach (ICD-10-PCS; 2025-02-11)
PROC: 0QP004Z Removal of Internal Fixation Device from Lumbar Vertebra, Open Approach (ICD-10-PCS; 2025-02-11)
PROC: 0QP104Z Removal of Internal Fixation Device from Sacrum, Open Approach (ICD-10-PCS; 2025-02-11)
PROC: 8E0WXBZ Computer Assisted Procedure of Trunk Region (ICD-10-PCS; 2025-02-11)
PROC: 0SG00AJ Fusion of Lumbar Vertebral Joint with Interbody Fusion Device, Posterior Approach, Anterior Column, Open Approach (ICD-10-PCS; principal; 2025-02-11 12:00)
DX: M43.16 Spondylolisthesis, lumbar region (principal); M48.57XA Collapsed vertebra, not elsewhere classified, lumbosacral region, initial encounter for fracture; J44.9 Chronic obstructive pulmonary disease, unspecified; M47.26 Other spondylosis with radiculopathy, lumbar region; M48.061 Spinal stenosis, lumbar region without neurogenic claudication; I95.9 Hypotension, unspecified; M51.17 Intervertebral disc disorders with radiculopathy, lumbosacral region; Z98.1 Arthrodesis status; Z87.891 Personal history of nicotine dependence; Z79.899 Other long term (current) drug therapy
CPT/HCPCS: 72100; 72131; 80048; 85025; 94760